=== PATIENT | male | born 1930 | race Caucasian/White ===

== ENCOUNTER 2017-01-22 09:05 | Emergency (ER) | payer OTHER ==
[2017-01-22] MEDS ORDERED: SODIUM CHLORIDE 1,000 ML IV STA (09:38)
--- NOTE | 2017-01-22 09:47 | PDOC ---
History of Present Illness - History of Present Illness Initial Comments: 01/22/17 10:04 The patient is a 86 year old male, with a significant past medical history of alzheimer's, AFib (on Pradaxa), who presents to the emergency department with home health aide for six days of abdominal pain with onset of diarrhea last night. The patient denies any complaints at this time, however, the home health aide at bedside reports the patient has been complaining of diffuse abdominal pain at home. The home health aide reports 3 episodes of loose stool, with blood visualized in the last bowel movement. He denies chest pain, shortness of breath, headache and dizziness. He denies fever, chills, nausea, vomit, diarrhea and constipation. He denies dysuria, frequency, urgency and hematuria. Allergies: NKDA PCP - Dr. Galeana <Leti Garcia - Last Filed: 01/22/17 13:41> <Leeann Osorio - Last Filed: 01/22/17 16:10> - General Chief Complaint: Pain, Acute Stated Complaint: PAIN Time Seen by Provider: 01/22/17 09:20 Past History <Leti Garcia - Last Filed: 01/22/17 13:41> - Past Medical History Cardiac Disorders: Yes (v tach, angina, irregular rhythm) Dementia: Yes (possible) GI Disorders: Yes (constipation) HTN: Yes Hypercholesterolemia: Yes - Surgical History Cardiac Surgery: Yes (bypass( Double), pacemaker/icd) - Immunization History Immunization Up to Date: Yes - Psycho/Social/Smoking Cessation Hx Anxiety: No Suicidal Ideation: No Smoking History: Former smoker Have you smoked in the past 12 months: No Number of Cigarettes Smoked Daily: 10 If you are a former smoker, when did you quit?: 40 years ago Information on smoking cessation initiated: No Hx Alcohol Use: No Drug/Substance Use Hx: No Substance Use Type: None Hx Substance Use Treatment: No <Leeann Osorio - Last Filed: 01/22/17 16:10> - Past Medical History Allergies/Adverse Reactions: Allergies Allergy/AdvReac Type Severity Reaction Status Date / Time No Known Allergies Allergy Verified 01/22/17 09:07 Home Medications: Ambulatory Orders Folic Acid - 1 mg PO DAILY 12/01/13 Ramipril [Altace] 10 mg PO DAILY 12/01/13 Simvastatin [Zocor -] 40 mg PO HS 12/01/13 Sotalol HCl [Sotalol] 40 mg PO BID 12/01/13 Cholecalciferol (Vitamin D3) [Vitamin D3] 1,000 unit PO DAILY 02/12/14 Colchicine [Colcrys] 0.5 mg PO DAILY 06/10/16 Sennosides/Docusate Sodium [Senna Plus Tablet] 1 each PO ASDIR PRN 06/10/16 Polyethylene Glycol 3350 [Miralax 255 gm Btl -] 17 gm PO BID #1 bottle 06/16/16 Dabigatran Etexilate Mesylate [Pradaxa -] 150 mg PO BID 06/25/16 Donepezil HCl 5 mg PO DAILY 12/26/16 Finasteride 5 mg PO DAILY 12/26/16 Olanzapine 2.5 mg PO HS 12/26/16 Docusate Sodium [Colace -] 100 mg PO DAILY #30 capsule 01/22/17 Review of Systems - Review of Systems Able to Perform ROS?: No (Hx from [facility]) <Leti Garcia - Last Filed: 01/22/17 13:41> *Physical Exam - Physical Exam Comments: 01/22/17 10:05 GENERAL: Awake, alert, and fully oriented, in no acute distress HEAD: No signs of trauma EYES: PERRLA, EOMI, sclera anicteric, conjunctiva clear ENT: Auricles normal inspection, hearing grossly normal, nares patent, oropharynx clear without exudates. Moist mucosa NECK: Normal ROM, supple, no lymphadenopathy, JVD, or masses LUNGS: Breath sounds equal, clear to auscultation bilaterally. No wheezes, and no crackles HEART: Regular rate and rhythm, normal S1 and S2, no murmurs, rubs or gallops ABDOMEN: Soft, nontender, normoactive bowel sounds. No guarding, no rebound. No masses EXTREMITIES: Normal range of motion, no edema. No clubbing or cyanosis. No cords, erythema, or tenderness NEUROLOGICAL: Cranial nerves II through XII grossly intact. Normal speech, normal gait SKIN: Warm, Dry, normal turgor, no rashes or lesions noted. <Leti Garcia - Last Filed: 01/22/17 13:41> ED Treatment Course - LABORATORY CBC & Chemistry Diagram: 01/22/17 10:30 01/22/17 10:30 - RADIOLOGY Radiograph Interpretation: EXAM#: TYPE/EXAM: RESULT: [id number] RAD/CHEST X-RAY PORTABLE* Chest: Abdominal pain Since 06/17/2016, again is the prominent mediastinum with large heart, unfolded aorta, sternal sutures and clips, pacemaker and some coarse central changes. There is slight tracheal deviation to the right from a prominent knob. Impression: No acute pathology. No significant change since prior study. Reported By: Cesar Lyons MD 01/22/17 1113 <Leti Garcia - Last Filed: 01/22/17 13:41> - LABORATORY CBC & Chemistry Diagram: 01/22/17 10:30 01/22/17 10:30 - RADIOLOGY Radiology Studies Ordered: Category Date Time Status CHEST X-RAY PORTABLE* [RAD] Stat Radiology 01/22/17 09:37 Ordered <Leeann Osorio - Last Filed: 01/22/17 16:10> Medical Decision Making - Medical Decision Making 01/22/17 13:41 Dr. Galeana was paged via phone answering service at this time requesting a call back for doctor to doctor consult. <Leti Garcia - Last Filed: 01/22/17 13:41> - Medical Decision Making 01/22/17 10:20 86-year-old male with history of Alzheimer's disease, hypertension, hyperlipidemia, atrial fibrillation on anticoagulation presents to the emergency department with his health aide who states that the patient has been complaining of abdominal pain and had 3 episodes of diarrhea today. Differential diagnosis includes but is not limited to: Gastroenteritis, colitis , enteritis, diverticulitis, electrolyte abnormality, toxic/metabolic derangement, dehydration. Plan: 1. Labs 2. EKG 3. IV fluids for hydration 4. Observe and reevaluate 01/22/17 14:28 Addendum: Labs were reviewed and are noted in the EMR. The CT scan shows dilated sigmoid colon with diffuse fecal retention. These findings were discussed with the patient's PCP, Dr. Weber. The plan is to give fleets enemas and induce BM in the ED then discharge home with stool softeners. Fleets enema has been ordered. <Leeann Osorio - Last Filed: 01/22/17 16:10> *DC/Admit/Observation/Transfer - Attestations Scribe Attestion: 01/22/17 10:06 Documentation prepared by Leti Garcia, acting as medical psychotherapist for Leeann Osorio MD <Leti Garcia - Last Filed: 01/22/17 13:41> - Discharge Dispostion Admit: No - Attestations Physician Attestion: 01/22/17 10:20 I, Dr. Leeann Osorio, attest that the scribes documentation that appears above has been prepared under my direction and personally reviewed by me in its entirety. I confirmed that the note above accurately reflects all work, treatment, procedures, and medical decision-making performed by me. <Leeann Osorio - Last Filed: 01/22/17 16:10> Diagnosis at time of Disposition: Abdominal pain, Fecal impaction - Discharge Dispostion Disposition: HOME Condition at time of disposition: Stable - Prescriptions Prescriptions: Docusate Sodium [Colace -] 100 mg PO DAILY #30 capsule - Referrals Referrals: Guero Galeana MD [Primary Care Provider] - - Patient Instructions Printed Discharge Instructions: DI for Constipation Additional Instructions: Take colace 100mg--one tablet daily. Follow-up with primary care physician. Return to the ED if symptoms persist, worsen or new symptoms arise.
[2017-01-22 10:10] VITALS: BMI 25.7
[2017-01-22 10:43] LABS: BASOPHIL 1.1 % (0-2.0); EOSINOPHIL 1.6 % (0-4.5); MCHC 33.9 g/dl (32.0-35.9); MEAN CELL VOLUME 91.4 fl (80-96); MEAN PLT VOLUME 7.3 fl (7.5-11.1); NEUTROPHILS 70.2 % (42.8-82.8); PLATELET COUNT 176 K/MM3 (134-434); RDW 13.9 % (11.9-15.9); WHITE BLOOD COUNT 5.3 K/mm3 (4.0-10.0)
[2017-01-22 11:02] LABS: ALBUMIN 3.4 g/dl (3.4-5.0); ANION GAP 8 (8-16); BILIRUBIN,TOTAL 0.7 mg/dL (0.2-1.0); CALCIUM 9.2 mg/dL (8.5-10.1); CO2 33 mmol/L (21-32); GLUCOSE,RANDOM 100 mg/dL (74-106); SGOT/AST 22 U/L (15-37); SGPT/ALT 21 U/L (12-78); TOT PROT 6.7 g/dl (6.4-8.2)
[2017-01-22 11:05] LABS: ALK PHOS 81 U/L (45-117); TROPONIN I < 0.02 ng/ml (0.00-0.05)
--- NOTE | 2017-01-22 11:48 | EKG ---
Test Reason : Blood Pressure : / mmHG Vent. Rate : 073 BPM Atrial Rate : 073 BPM P-R Int : 260 ms QRS Dur : 112 ms QT Int : 398 ms P-R-T Axes : 007 -15 -30 degrees QTc Int : 438 ms SINUS RHYTHM WITH 1ST DEGREE A-V BLOCK WITH FREQUENT PREMATURE VENTRICULAR COMPLEXES NONSPECIFIC T WAVE ABNORMALITY ABNORMAL ECG WHEN COMPARED WITH ECG OF 26-DEC-2016 07:12, NO SIGNIFICANT CHANGE WAS FOUND Confirmed by CT GONCALVES, CORINA ([id number]) on 01/22/2017 11:48:40 AM Referred By: Confirmed By:CORINA FOFANA MD
[2017-01-22 12:04] LABS: URINE APPEARANCE CLEAR; URINE BILIRUBIN NEGATIVE (NEGATIVE); URINE BLOOD 3+ (NEGATIVE); URINE COLOR YELLOW; URINE GLUCOSE (UA) NEGATIVE (NEGATIVE); URINE KETONE NEGATIVE (NEGATIVE); URINE LEUK ESTERASE NEGATIVE (NEGATIVE); URINE NITRITE NEGATIVE (NEGATIVE); URINE PROTEIN NEGATIVE (NEGATIVE); URINE UROBILINOGEN NEGATIVE mg/dL (0.2-1.0)
[2017-01-22 12:09] LABS: URINE MUCUS RARE; URINE RBC 310 /hpf (0-3); URINE WBC 2 /hpf (3-5)
[2017-01-22] MEDS ORDERED: MAGNESIUM CITRATE 300 ML BOTTLE PO ONE (15:31)
[2017-01-22] MEDS ORDERED: MAGNESIUM CITRATE 300 ML BOTTLE ONE (15:53)
[2017-01-22 18:55] VITALS: BP 135/77; PULSE 77; TEMP 98.1
== END 2017-01-22 18:55 | disposition home or self-care (01) ==
LOC: JER 09:05
PROC: 3E0337Z Introduction of Electrolytic and Water Balance Substance into Peripheral Vein, Percutaneous Approach (ICD-10-PCS; principal; 2017-01-22)
DX: R10.84 Generalized abdominal pain (principal); K56.41 Fecal impaction; I25.810 Atherosclerosis of coronary artery bypass graft(s) without angina pectoris; I10 Essential (primary) hypertension; Z95.1 Presence of aortocoronary bypass graft; Z95.810 Presence of automatic (implantable) cardiac defibrillator; I48.91 Unspecified atrial fibrillation; Z79.01 Long term (current) use of anticoagulants; E78.00 Pure hypercholesterolemia, unspecified
CPT/HCPCS: 36415; 71010-TC; 74176-TC; 80053; 81003; 81015; 82272; 82550; 83605; 83690; 84484; 85025; 93005; 93010; 99285-25

== ENCOUNTER 2017-01-24 06:32 | Emergency (ER) | payer OTHER ==
[2017-01-24 06:48] VITALS: BMI 20.3
[2017-01-24] MEDS ORDERED: SODIUM CHLORIDE 500 ML IV STA (07:45)
--- NOTE | 2017-01-24 07:52 | PDOC ---
History of Present Illness - General Chief Complaint: Rectal Bleed Stated Complaint: BLOOD IN STOOL Time Seen by Provider: 01/24/17 07:18 History Source: Patient, Family - History of Present Illness Timing/Duration: reports: constant Past History - Past Medical History Allergies/Adverse Reactions: Allergies Allergy/AdvReac Type Severity Reaction Status Date / Time No Known Allergies Allergy Verified 01/24/17 07:02 Home Medications: Ambulatory Orders Folic Acid - 1 mg PO DAILY 12/01/13 Ramipril [Altace] 10 mg PO DAILY 12/01/13 Simvastatin [Zocor -] 40 mg PO HS 12/01/13 Sotalol HCl [Sotalol] 40 mg PO BID 12/01/13 Cholecalciferol (Vitamin D3) [Vitamin D3] 1,000 unit PO DAILY 02/12/14 Colchicine [Colcrys] 0.5 mg PO DAILY 06/10/16 Sennosides/Docusate Sodium [Senna Plus Tablet] 1 each PO ASDIR PRN 06/10/16 Polyethylene Glycol 3350 [Miralax 255 gm Btl -] 17 gm PO BID #1 bottle 06/16/16 Dabigatran Etexilate Mesylate [Pradaxa -] 150 mg PO BID 06/25/16 Donepezil HCl 5 mg PO DAILY 12/26/16 Finasteride 5 mg PO DAILY 12/26/16 Olanzapine 2.5 mg PO HS 12/26/16 Docusate Sodium [Colace -] 100 mg PO DAILY #30 capsule 01/22/17 Cardiac Disorders: Yes (v tach, angina, irregular rhythm) Dementia: Yes (possible) GI Disorders: Yes (constipation) HTN: Yes Hypercholesterolemia: Yes - Surgical History Cardiac Surgery: Yes (bypass(Double), pacemaker/icd) - Immunization History Immunization Up to Date: Yes - Psycho/Social/Smoking Cessation Hx Anxiety: No Suicidal Ideation: No Smoking History: Former smoker Have you smoked in the past 12 months: No Number of Cigarettes Smoked Daily: 10 If you are a former smoker, when did you quit?: 40 yrs Information on smoking cessation initiated: No Hx Alcohol Use: No Drug/Substance Use Hx: No Substance Use Type: None Hx Substance Use Treatment: No Review of Systems - Review of Systems Constitutional: No: Chills, Fever, Malaise, Weakness ABD/GI: Yes: Blood Streaked Bowels. No: Constipated, Diarrhea, Nausea, Vomiting *Physical Exam - Vital Signs Last Vital Signs Temp Pulse Resp BP Pulse Ox 97.9 F 77 20 110/55 96 01/24/17 06:45 01/24/17 06:45 01/24/17 06:45 01/24/17 06:45 01/24/17 06:45 - Physical Exam General Appearance: Yes: Appropriately Dressed. No: Apparent Distress HEENT: positive: Normal Voice Neck: positive: Supple Respiratory/Chest: negative: Respiratory Distress Gastrointestinal/Abdominal: positive: Soft. negative: Tender, Hernia, Mass Extremity: positive: Normal Inspection Integumentary: positive: Dry, Warm Neurologic: positive: Alert, Normal Mood/Affect ED Treatment Course - LABORATORY CBC & Chemistry Diagram: 01/24/17 08:00 01/24/17 08:00 Medical Decision Making - Medical Decision Making 01/24/17 07:52 86-year-old male with history of Alzheimer's disease, hypertension, hyperlipidemia, A.fib on pradaxa brought in by daughter with complaint that patient has been moving his bowels at home every 15 minutes. Of note, patient was seen in the ED 2 days ago for abdominal pain with diarrhea w/ some blood in the stool. Was found to be guaiac positive with stool retention on CT. Labs were unremarkable. Patient was given a fleet enema and discharged with dulcolax which pt has not yet taken. Daughter states patient has been moving his bowels approximately every 15 minutes, c/w watery stools and has noted minimal amounts of bright red blood in stool. Patient denies any abd pain, nausea, vomiting, fever and states he feels well at this time. Daughter admits that she wants ED to admit patient because family was up all night tending to patient and that she feels overwhelmed. Patient well-appearing and stable with benign abdomen. I explained to daughter that it is normal for patient to have several BM movements after given an enema and that, that will taper off. I informed her that I will check blood work today, but that if there is no medical reason for us to admit patient we would be unable to at this time. Daughter informed that if family feels overwhelmed at home, that she should contact patient's PMD and discuss options such as prison placement 01/24/17 07:58 01/24/17 08:57 Labs unremarkable. Pt had several non-bloody BMs while in ED. Pt's daughter now admits that home care agency is increasing hrs for pt. Stable for discharge at this time to f/u with PMD 01/24/17 09:03 01/24/17 09:13 *DC/Admit/Observation/Transfer Diagnosis at time of Disposition: Diarrhea Qualifiers: Diarrhea type: unspecified type Qualified Code(s): R19.7 - Diarrhea, unspecified - Discharge Dispostion Disposition: HOME Condition at time of disposition: Good - Referrals Referrals: Guero Galeana MD [Primary Care Provider] - - Patient Instructions Additional Instructions: Your frequent bowel movements are most likely a result of enema you were given in ED. After frequency and diarrhea has resolved, resume usual bowel regimen and follow-up with your PMD
[2017-01-24 08:10] LABS: BASOPHIL 0.6 % (0-2.0); EOSINOPHIL 1.4 % (0-4.5); MCH 30.4 pg (25.7-33.7); MCHC 33.2 g/dl (32.0-35.9); MEAN CELL VOLUME 91.7 fl (80-96); MEAN PLT VOLUME 7.7 fl (7.5-11.1); NEUTROPHILS 68.6 % (42.8-82.8); PLATELET COUNT 190 K/MM3 (134-434); RDW 13.4 % (11.9-15.9); WHITE BLOOD COUNT 6.2 K/mm3 (4.0-10.0)
[2017-01-24 08:44] LABS: ALBUMIN 3.2 g/dl (3.4-5.0); ALK PHOS 83 U/L (45-117); ANION GAP 5 (8-16); BILIRUBIN,TOTAL 0.6 mg/dL (0.2-1.0); CALCIUM 9.2 mg/dL (8.5-10.1); CO2 33 mmol/L (21-32); CREATININE 1.2 mg/dL (0.7-1.3); GLUCOSE,RANDOM 100 mg/dL (74-106); SGOT/AST 27 U/L (15-37); SGPT/ALT 21 U/L (12-78); TOT PROT 6.5 g/dl (6.4-8.2)
--- NOTE | 2017-01-24 09:05 | PDOC ---
*Physical Exam - Vital Signs Last Vital Signs Temp Pulse Resp BP Pulse Ox 97.9 F 80 18 112/60 98 01/24/17 06:45 01/24/17 07:50 01/24/17 07:50 01/24/17 07:50 01/24/17 07:50 ED Treatment Course - LABORATORY CBC & Chemistry Diagram: 01/24/17 08:00 01/24/17 08:00 - ADDITIONAL ORDERS Additional order review: Laboratory Results 01/24/17 08:00 Sodium 137 Potassium 4.3 Chloride 99 Carbon Dioxide 33 H Anion Gap 5 L BUN 31 H Creatinine 1.2 Creat Clearance w eGFR 57.54 Random Glucose 100 Calcium 9.2 Total Bilirubin 0.6 AST 27 D ALT 21 Alkaline Phosphatase 83 Total Protein 6.5 Albumin 3.2 L 01/24/17 08:00 RBC 3.88 L MCV 91.7 MCHC 33.2 RDW 13.4 MPV 7.7 Neutrophils % 68.6 Lymphocytes % 13.5 Monocytes % 15.9 H Eosinophils % 1.4 Basophils % 0.6 - Medications Given in the ED: ED Medications Discontinued Medications Generic Name Dose Route Start Last Admin Trade Name Freq PRN Reason Stop Dose Admin Sodium Chloride 500 mls @ 1,000 mls/hr 01/24/17 07:45 01/24/17 08:30 Normal Saline - IV 01/24/17 08:14 1,000 mls/hr ASDIR STA Administration Medical Decision Making - Medical Decision Making 01/24/17 09:05 Pt seen by the Advanced Practice Provider under my direct supervision Ancillary studies reviewed I agree with plan as outlined by the Advanced Practice Provider ELO Navarrete *DC/Admit/Observation/Transfer Diagnosis at time of Disposition: Diarrhea Qualifiers: Diarrhea type: unspecified type Qualified Code(s): R19.7 - Diarrhea, unspecified - Discharge Dispostion Disposition: HOME Condition at time of disposition: Good - Referrals Referrals: Guero Galeana MD [Primary Care Provider] - - Patient Instructions Additional Instructions: Your frequent bowel movements are most likely a result of enema you were given in ED. After frequency and diarrhea has resolved, resume usual bowel regimen and follow-up with your PMD - Post Discharge Activity
[2017-01-24 12:03] VITALS: BP 114/63; PULSE 69; TEMP 97.7
== END 2017-01-24 12:14 | disposition home or self-care (01) ==
LOC: JER 06:32
PROC: 3E0337Z Introduction of Electrolytic and Water Balance Substance into Peripheral Vein, Percutaneous Approach (ICD-10-PCS; principal; 2017-01-24)
DX: R19.7 Diarrhea, unspecified (principal); I25.118 Atherosclerotic heart disease of native coronary artery with other forms of angina pectoris; I10 Essential (primary) hypertension; Z95.1 Presence of aortocoronary bypass graft; E78.00 Pure hypercholesterolemia, unspecified; G30.9 Alzheimer's disease, unspecified; F02.80 Dementia in other diseases classified elsewhere, unspecified severity, without behavioral disturbance, psychotic disturbance, mood disturbance, and anxiety; Z95.810 Presence of automatic (implantable) cardiac defibrillator
CPT/HCPCS: 36415; 80053; 85025; 96360; 99284-25

== ENCOUNTER 2017-06-16 21:20 | Inpatient (IN) | payer OTHER ==
[2017-06-16 22:43] VITALS: BMI 22.3
--- NOTE | 2017-06-16 22:45 | PDOC ---
History of Present Illness - General History Source: Patient <Bhupinder Brooks - Last Filed: 06/17/17 00:00> - History of Present Illness Initial Comments: 06/16/17 22:58 The patient is an 86 year old male, with a significant past medical history of hypertension, hyperlipidemia, hypokalemia, CAD, alzheimer's, AFib (on Pradaxa), and CHF who presents to the emergency department with daughter for increased confusion this evening. As per the patients daughter, in the last several days, the patient has become increasingly weak with progressively decreasing appetite. The daughter states her father was unable to walk secondary to weakness today The daughter states there was no syncope that was observed or reported by others. No reported chest pain, shortness of breath, headache or dizziness. No reported fever, chills, nausea, vomit, diarrhea, abdominal pain or constipation. No reported dysuria, frequency, urgency and hematuria. Allergies: NKDA PCP: Dr. Galeana Case Advocate: Dr. Jones <Leti Garcia - Last Filed: 06/17/17 03:13> - General Chief Complaint: Altered Mental Status Stated Complaint: SICK Time Seen by Provider: 06/16/17 22:45 Past History - Past Medical History Cardiac Disorders: Yes (v tach, angina, irregular rhythm) Dementia: Yes (possible) GI Disorders: Yes (constipation) HTN: Yes Hypercholesterolemia: Yes - Surgical History Cardiac Surgery: Yes (bypass(Double), pacemaker/icd) - Immunization History Immunization Up to Date: Yes - Suicide/Smoking/Psychosocial Hx Smoking History: Never smoked Have you smoked in the past 12 months: No Number of Cigarettes Smoked Daily: 10 If you are a former smoker, when did you quit?: 40 yrs Information on smoking cessation initiated: No Hx Alcohol Use: No Drug/Substance Use Hx: No Substance Use Type: None Hx Substance Use Treatment: No <Bhupinder Brooks - Last Filed: 06/17/17 00:00> <Leti Garcia - Last Filed: 06/17/17 03:13> - Past Medical History Allergies/Adverse Reactions: Allergies Allergy/AdvReac Type Severity Reaction Status Date / Time No Known Allergies Allergy Verified 06/16/17 22:40 Home Medications: Ambulatory Orders Folic Acid - 1 mg PO DAILY 12/01/13 Ramipril [Altace] 10 mg PO DAILY 12/01/13 Simvastatin [Zocor -] 40 mg PO HS 12/01/13 Sotalol HCl [Sotalol] 40 mg PO BID 12/01/13 Cholecalciferol (Vitamin D3) [Vitamin D3] 1,000 unit PO DAILY 02/12/14 Colchicine [Colcrys] 0.5 mg PO DAILY 06/10/16 Sennosides/Docusate Sodium [Senna Plus Tablet] 1 each PO ASDIR PRN 06/10/16 Polyethylene Glycol 3350 [Miralax 255 gm Btl -] 17 gm PO BID #1 bottle 06/16/16 Dabigatran Etexilate Mesylate [Pradaxa -] 150 mg PO BID 06/25/16 Donepezil HCl 5 mg PO DAILY 12/26/16 Finasteride 5 mg PO DAILY 12/26/16 Olanzapine 2.5 mg PO HS 12/26/16 Docusate Sodium [Colace -] 100 mg PO DAILY #30 capsule 01/22/17 Review of Systems - Review of Systems Able to Perform ROS?: No (AMS) Is the patient limited Wallisian proficient: No Constitutional: Yes: Symptoms Reported, See HPI (as per Pt's daughter) <Leti Garcia - Last Filed: 06/17/17 03:13> *Physical Exam - Vital Signs Last Vital Signs Temp Pulse Resp BP Pulse Ox 79 14 103/62 91 L 06/16/17 22:40 06/16/17 22:40 06/16/17 22:40 06/16/17 22:40 <Bhupinder Brooks - Last Filed: 06/17/17 00:00> - Vital Signs Last Vital Signs Temp Pulse Resp BP Pulse Ox 79 14 103/62 91 L 06/16/17 22:40 06/16/17 22:40 06/16/17 22:40 06/16/17 22:40 - Physical Exam Comments: 06/16/17 22:59 GENERAL: (+) Confused. Patient is not answering questions appropriately, however, does not complain of anything in particular. Awake. HEENT: Normocephalic, atraumatic. PERRLA, EOMI. No conjunctival pallor. Sclera are non- icteric. Moist mucous membranes. Oropharynx is clear. NECK: Supple. Full ROM. No JVD. Carotid pulses 2+ and symmetric, without bruits. No thyromegaly. No lymphadenopathy. CARDIOVASCULAR: Regular rate and rhythm. No murmurs, rubs, or gallops. Distal pulses are 2+ and symmetric. PULMONARY: No evidence of respiratory distress. Lungs clear to auscultation bilaterally. No wheezing, rales or rhonchi. ABDOMINAL: Soft. Non-tender. Non-distended. No rebound or guarding. No organomegaly. Normoactive bowel sounds. MUSCULOSKELETAL Normal range of motion at all joints. No bony deformities or tenderness. No CVA tenderness. EXTREMITIES: No cyanosis. No clubbing. No edema. No calf tenderness. SKIN: Warm and dry. Normal capillary refill. No rashes. No jaundice. NEUROLOGICAL: Alert, awake, appropriate. Cranial nerves 2-12 intact. Normoreflexic in the upper and lower extremities. Moving all extremities equally and appropriately. Normal speech. Toes are down-going bilaterally. <Leti Garcia - Last Filed: 06/17/17 03:13> Heart Score/ECG Review - ECG Intrepretation Comment:: 06/17/17 03:05 EKG was read by Dr. Brooks at 02:57 Impression: Sinus rhythm with frequent and consecutive premature ventricular complexes and fusion complexes. ST & T wave abnormality. Prolonged QT <Leti Garcia - Last Filed: 06/17/17 03:13> ED Treatment Course - LABORATORY CBC & Chemistry Diagram: 06/16/17 23:38 06/16/17 23:38 <Bhupinder Brooks - Last Filed: 06/17/17 00:00> - LABORATORY CBC & Chemistry Diagram: 06/16/17 23:38 06/16/17 23:38 - RADIOLOGY Radiograph Interpretation: EXAM: CT HEAD without contrast HISTORY: Altered mental status COMPARISON: None. TECHNIQUE: CT Head with serial axial images extending from the vertex to the base of skull was performed without vascular contrast. FINDINGS: Brain parenchyma is normal in attenuation with no mass or hematoma. There is no midline shift. Garcia and white matter differentiation is normal. There is some lucency in the periventricular white matter Ventricles are mildly prominent. Sulci and extra-axial CSF spaces are mildly prominent. Intracranial vascular structures are normal in attenuation. There is no calvarial fracture. Paranasal sinuses are normally aerated. IMPRESSION: No intracranial mass or bleed Chronic appearing involutional changes of aging Orlando Wan MD 06/17/2017 01:58 EST <Leti Garcia - Last Filed: 06/17/17 03:13> Medical Decision Making - Medical Decision Making 06/17/17 00:00 Dr. Brooks: The scribe's documentation has been prepared under my direction and personally reviewed by me in its entirery. I confirm that the note above accurately reflects all work, treatment, procedures, and medical decision making performed by me. Spoke to Dr. Galeana. Pt to be admitted to [facility]. <Bhupinder Brooks - Last Filed: 06/17/17 00:00> - Medical Decision Making 06/16/17 23:53 Dr. Galenaa was called via phone answering service at this time and the patient's case was discussed. <Leti Garcia - Last Filed: 06/17/17 03:13> *DC/Admit/Observation/Transfer - Discharge Dispostion Admit: Yes <Bhupinder Brooks - Last Filed: 06/17/17 00:00> - Attestations Scribe Attestion: 06/16/17 23:02 Documentation prepared by Leti Garcia, acting as special forces medical sergeant for Bhupinder Brooks DO <Leti Garcia - Last Filed: 06/17/17 03:13> Diagnosis at time of Disposition: Altered mental status, Failure to thrive in adult, Bilateral lower extremity edema - Discharge Dispostion Condition at time of disposition: Stable
[2017-06-16 23:44] LABS: BASO % 0.2 % (0-2.0); HEMATOCRIT 36.2 % (35.4-49); HEMOGLOBIN 11.8 GM/dL (11.7-16.9); LYMPH % 2.8 % (8-40); MCH 29.1 pg (25.7-33.7); MCHC 32.7 g/dl (32.0-35.9); MEAN CELL VOLUME 89.1 fl (80-96); MEAN PLT VOLUME 8.1 fl (7.5-11.1); MONO % 7.8 % (3.8-10.2); NEUT % 89.2 % (42.8-82.8); PLATELET COUNT 186 K/MM3 (134-434); RBC 4.06 M/mm3 (4.00-5.60); RDW 15.7 % (11.9-15.9); WHITE BLOOD COUNT 7.6 K/mm3 (4.0-10.0)
[2017-06-16 23:56] LABS: INR 1.71 (0.82-1.09); PROTHROMBIN TIME (PATIENT) 19.3 SEC (9.98-11.88)
[2017-06-17 00:11] LABS: ANION GAP 12 (8-16); BILIRUBIN,TOTAL 0.7 mg/dL (0.2-1.0); BLOOD UREA NITROGEN 26 mg/dL (7-18); CALCIUM 8.5 mg/dL (8.5-10.1); CHLORIDE 101 mmol/L (98-107); CO2 29 mmol/L (21-32); CREATININE 1.3 mg/dL (0.7-1.3); GLUCOSE,RANDOM 127 mg/dL (74-106); POTASSIUM 3.4 mmol/L (3.5-5.1); SGOT/AST 34 U/L (15-37); SGPT/ALT 34 U/L (12-78); SODIUM 142 mmol/L (136-145); TOT PROT 6.3 g/dl (6.4-8.2)
[2017-06-17 00:14] LABS: ALK PHOS 98 U/L (45-117)
[2017-06-17] MEDS ORDERED: SENNOSIDES/DOCUSATE COMBO (SENNA PLUS) TABLET (UD) PO PRN ×2 (00:24→19:18)
[2017-06-17] MEDS ORDERED: POTASSIUM CHLORIDE TABS 20 MEQ TABLET.ER (FP) PO ONE (00:27)
[2017-06-17] MEDS ORDERED: LORazepam 2 MG/ML SDV VIAL ONE (01:11)
[2017-06-17] MEDS ORDERED: POTASSIUM CHLORIDE ORAL LIQUID 20 MEQ/15 ML ONE (01:14)
[2017-06-17] MEDS ORDERED: ACETAMINOPHEN 1000 MG/100 ML VIAL (NON FORMULARY) IVPB ONE ×3 (01:46→21:00)
[2017-06-17] MEDS ORDERED: ACETAMINOPHEN INJECTION 100 ML IVPB ONE (01:49)
[2017-06-17] MEDS ORDERED: CEFTRIAXONE 1 GM/50 ML BAG ONE (01:50)
[2017-06-17] MEDS ORDERED: NITROGLYCERIN SUBLINGUAL 1/150 0.4 MG TAB ONE (02:20)
[2017-06-17 02:32] LABS: URINE APPEARANCE CLOUDY; URINE BILIRUBIN NEGATIVE (NEGATIVE); URINE BLOOD 2+ (NEGATIVE); URINE COLOR DKYELLOW; URINE GLUCOSE (UA) NEGATIVE (NEGATIVE); URINE KETONE NEGATIVE (NEGATIVE); URINE NITRITE NEGATIVE (NEGATIVE); URINE UROBILINOGEN NEGATIVE mg/dL (0.2-1.0)
[2017-06-17 02:34] LABS: URINE LEUK ESTERASE 3+ (NEGATIVE); URINE PROTEIN 2+ (NEGATIVE)
[2017-06-17 02:35] LABS: URINE BACTERIA MODERATE /hpf (NONE SEEN); URINE MUCUS RARE
[2017-06-17] MEDS ORDERED: SODIUM CHLORIDE 1,000 ML IV SCH ×4 (04:45→21:01)
[2017-06-17] MEDS ORDERED: CEFTRIAXONE 1 G/50 ML PREMIX 50 ML IVPB SCH (04:45)
[2017-06-17] MEDS ORDERED: SODIUM CHLORIDE 0.9% 500 ML INFUS.BAG IV ONE (04:58)
[2017-06-17] MEDS ORDERED: VANCOMYCIN 1,000 MG in DEXTROSE 5%-WATER - 250 ML IVPB ONE (05:00)
--- NOTE | 2017-06-17 09:33 | CON.CARD ---
Consult Consult Specialty:: Cardiology Referred by:: Dr. 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 As per the patients daughter, in the last several days, the patient has become increasingly weak with progressively decreasing appetite. The daughter states her father was unable to walk secondary to weakness today The daughter states there was no syncope that was observed or reported by others. He was found to be febrile, cultures were sent. He cannot provide history is currently nonverbal, this is my first encounter with him. - History Source History Provided By: Medical Record - Past Medical History COPYWRITING INTERN: Yes: Dementia Cardio/Vascular: Yes: AFIB (Paroxysm on Holter), CAD, CHF, HTN, Hyperlipdemia, Murmur Gastrointestinal: No: Cancer Hepatobiliary: Yes: Cholelithiasis Renal/: Yes: BPH, Other (Bladder mass) Musculoskeletal: Yes: Osteoarthritis Rheumatology: Yes: Other (Pseudogout-on Colchicine) - Past Surgical History Past Surgical History: Yes: AICD, CABG - Alcohol/Substance Use Hx Alcohol Use: No - Smoking History Smoking history: Never smoked Have you smoked in the past 12 months: No Aproximately how many cigarettes per day: 10 If you are a former smoker, when did you quit?: 40 yrs - Social History ADL: Independent History of Recent Travel: No Home Medications - Allergies Allergies/Adverse Reactions: Allergies Allergy/AdvReac Type Severity Reaction Status Date / Time No Known Allergies Allergy Verified 06/16/17 22:40 - Home Medications Home Medications: Ambulatory Orders Folic Acid - 1 mg PO DAILY 12/01/13 Ramipril [Altace] 10 mg PO DAILY 12/01/13 Simvastatin [Zocor -] 40 mg PO HS 12/01/13 Sotalol HCl [Sotalol] 40 mg PO BID 12/01/13 Cholecalciferol (Vitamin D3) [Vitamin D3] 1,000 unit PO DAILY 02/12/14 Colchicine [Colcrys] 0.5 mg PO DAILY 06/10/16 Sennosides/Docusate Sodium [Senna Plus Tablet] 1 each PO ASDIR PRN 06/10/16 Polyethylene Glycol 3350 [Miralax 255 gm Btl -] 17 gm PO BID #1 bottle 06/16/16 Dabigatran Etexilate Mesylate [Pradaxa -] 150 mg PO BID 06/25/16 Donepezil HCl 5 mg PO DAILY 12/26/16 Finasteride 5 mg PO DAILY 12/26/16 Olanzapine 2.5 mg PO HS 12/26/16 Docusate Sodium [Colace -] 100 mg PO DAILY #30 capsule 01/22/17 Family Disease History - Family Disease History Family History: Unremarkable (not pertinent to this presentation) Review of Systems Findings/Remarks: see HPI - Risk Factors Known Risk Factors: Yes: Other (known CAD) Vital Signs: Vital Signs Temperature 99.0 F 06/17/17 03:35 Pulse Rate 72 06/17/17 03:35 Respiratory Rate 30 H 06/17/17 03:35 Blood Pressure 105/62 06/17/17 03:35 O2 Sat by Pulse Oximetry (%) 94 L 06/17/17 03:35 Constitutional: Yes: No Distress Respiratory: Yes: Rhonchi (no wheezing), Other Gastrointestinal: Yes: Soft Cardiovascular: Yes: Pulse Irregular JVD: No Carotid Bruit: No Heart Sounds: Yes: S1, S2 (irregular) Edema: No Neurological: Yes: Other (nonverbal) - Other Data Labs, Other Data: CBC, BMP 06/16/17 23:38 06/16/17 23:38 INR, PTT INR 1.71 (0.82-1.09) H D 06/16/17 23:38 Troponin, BNP 06/16/17 06/16/17 23:31 23:38 Troponin I 0.02 B-Natriuretic Peptide 6754.79 H Troponin, BNP 06/16/17 06/16/17 23:31 23:38 Troponin I 0.02 B-Natriuretic Peptide 6754.79 H Microbiology Laboratory Tests 06/16/17 06/16/17 06/16/17 23:31 23:38 23:38 WBC 7.6 Hgb 11.8 Plt Count 186 INR Sodium 142 Potassium 3.4 L D BUN 26 H Creatinine 1.3 Magnesium Creatine Kinase 121 Troponin I 0.02 B-Natriuretic Peptide 6754.79 H 06/16/17 06/16/17 23:38 23:38 WBC Hgb Plt Count INR 1.71 H D Sodium Potassium BUN Creatinine Magnesium 1.7 L Creatine Kinase Troponin I B-Natriuretic Peptide Uninterpretable, artifactual baseline. Prior Cardiac Procedures: CABG Imaging - Results Chest X-ray: Image Reviewed Cat Scan: Report Reviewed (Head CT negative Chest CT mild congestion) EKG: Image Reviewed Problem List - Problems (1) Failure to thrive in adult Assessment/Plan: -fever: UTI? vs cellulitis? vs infiltrate -follow cultures, abx as per PMD Code(s): R62.7 - ADULT FAILURE TO THRIVE (2) Fever Assessment/Plan: -As above, follow cultures; abx as per PMD Code(s): R50.9 - FEVER, UNSPECIFIED Qualifiers: Fever type: due to other condition Qualified Code(s): R50.81 - Fever presenting with conditions classified elsewhere (3) Cellulitis Assessment/Plan: -as above Code(s): L03.90 - CELLULITIS, UNSPECIFIED Qualifiers: Site of cellulitis of extremity: upper extremity Laterality: right (4) Altered mental status Assessment/Plan: -likely due to infection, plan as above for possible sources Code(s): R41.82 - ALTERED MENTAL STATUS, UNSPECIFIED Qualifiers: Altered mental status type: unspecified Qualified Code(s): R41.82 - Altered mental status, unspecified (5) CHF (congestive heart failure) Assessment/Plan: -mild acute on chronic systolic -Agree with low dose lasix for several days with close eye on renal fxn Code(s): I50.9 - HEART FAILURE, UNSPECIFIED Qualifiers: Congestive heart failure type: unspecified congestive heart failure type Congestive heart failure chronicity: unspecified congestive heart failure chronicity Qualified Code(s): I50.9 - Heart failure, unspecified (6) ICD (implantable cardioverter-defibrillator) in place Assessment/Plan: -Secondary to ischemic CM, h/o VT documented -Follow blood cultures; routine interrogations as outpatient Code(s): Z95.810 - PRESENCE OF AUTOMATIC (IMPLANTABLE) CARDIAC DEFIBRILLATOR (7) Afib Assessment/Plan: -Continue Pradaxa Code(s): I48.91 - UNSPECIFIED ATRIAL FIBRILLATION Qualifiers: Atrial fibrillation type: paroxysmal Qualified Code(s): I48.0 - Paroxysmal atrial fibrillation (8) Alzheimer disease Code(s): G30.9 - ALZHEIMER'S DISEASE, UNSPECIFIED Qualifiers: Alzheimer's disease onset: unspecified onset
[2017-06-17] MEDS ORDERED: DOCUSATE SODIUM 100 MG CAPSULE (FP) PO SCH (10:00)
[2017-06-17] MEDS ORDERED: COLCHICINE 0.6 MG TABLET (FP) PO SCH (10:00)
[2017-06-17] MEDS ORDERED: POLYETHYLENE GLYCOL 3350 255 GM BTL PO SCH (10:00)
[2017-06-17] MEDS ORDERED: DONEPEZIL HCL 5 MG TABLET (FP) PO SCH (10:00)
[2017-06-17] MEDS ORDERED: MAGNESIUM OXIDE 400 MG TABLET (FP) PO SCH (10:00)
[2017-06-17] MEDS ORDERED: CHOLECALCIFEROL (VITAMIN D3) 1,000 UNIT TABLET (FP) PO SCH (10:00)
[2017-06-17] MEDS ORDERED: SOTALOL HCL 80 MG TABLET (FP) PO SCH ×2 (10:00→22:00)
[2017-06-17] MEDS ORDERED: POTASSIUM CHLORIDE TABS 20 MEQ TABLET.ER (FP) PO SCH (10:00)
[2017-06-17] MEDS ORDERED: RAMIPRIL 2.5 MG CAPSULE (FP) PO SCH (10:00)
[2017-06-17] MEDS ORDERED: FUROSEMIDE 40 MG/4 ML INJECTABLE VIAL IVPUSH SCH (10:00)
[2017-06-17] MEDS ORDERED: FOLIC ACID 1 MG TABLET (FP) PO SCH (10:00)
[2017-06-17] MEDS ORDERED: DABIGATRAN ETEXILATE MESYLATE 150 MG CAPSULE PO SCH (10:00)
[2017-06-17] MEDS ORDERED: MAGNESIUM HYDROX 2400MG/30ML ORAL SUSPENSION 30 ML CUP PO SCH (10:00)
[2017-06-17] MEDS ORDERED: SILVER SULFADIAZINE 1% TOP CREAM 50 GM JAR TP SCH (10:15)
--- NOTE | 2017-06-17 10:19 | HP ---
Admitting History and Physical - Admission Chief Complaint: 86 y.o M with dementia was BI from home by EMS because of acute change in MS, confusion, generalized weakness, inability to move and lethargy. Hypotensive after admission (SBP 70) with low grade fevers.pt was given IV bolus fluids, bld, urine cx obtained and ABX started. 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 HX of VT and AICD placement. Previously found to have A.fib on Holter by Dr. Jones and after last discharge the pt was re- started on Pradaxa PO. Significant weight loss over the last year-w/u negative. Constipation-recent hospitalization at [facility]-EGD/Colonoscopy done-found rectal ulcer. Diverticulosis, Possible bladder lesion and hematuria. Seen by urology during last hospitalization. Advised f/u as outpatient. Pressure ulcers. Gallstones. 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 Cardiovascular: Yes: AFIB (Paroxysm on Holter), CAD, CHF, HTN, Hyperlipdemia, Murmur Gastrointestinal: No: Cancer Hepatobiliary: Yes: Cholelithiasis Renal/: Yes: BPH, Other (Bladder mass) Heme/Onc: Yes: Thrombocytopenia Musculoskeletal: Yes: Osteoarthritis Rheumatology: Yes: Other (Pseudogout-on Colchicine) - Past Surgical History Past Surgical History: Yes: AICD, CABG - Smoking History Smoking history: Never smoked Have you smoked in the past 12 months: No Aproximately how many cigarettes per day: 10 If you are a former smoker, when did you quit?: 40 yrs - Alcohol/Substance Use Hx Alcohol Use: No - Social History ADL: Independent History of Recent Travel: No Home Medications - Allergies Allergies/Adverse Reactions: Allergies Allergy/AdvReac Type Severity Reaction Status Date / Time No Known Allergies Allergy Verified 06/16/17 22:40 - Home Medications Home Medications: Ambulatory Orders Folic Acid - 1 mg PO DAILY 12/01/13 Ramipril [Altace] 10 mg PO DAILY 12/01/13 Simvastatin [Zocor -] 40 mg PO HS 12/01/13 Sotalol HCl [Sotalol] 40 mg PO BID 12/01/13 Cholecalciferol (Vitamin D3) [Vitamin D3] 1,000 unit PO DAILY 02/12/14 Colchicine [Colcrys] 0.5 mg PO DAILY 06/10/16 Sennosides/Docusate Sodium [Senna Plus Tablet] 1 each PO ASDIR PRN 06/10/16 Polyethylene Glycol 3350 [Miralax 255 gm Btl -] 17 gm PO BID #1 bottle 06/16/16 Dabigatran Etexilate Mesylate [Pradaxa -] 150 mg PO BID 06/25/16 Donepezil HCl 5 mg PO DAILY 12/26/16 Finasteride 5 mg PO DAILY 12/26/16 Olanzapine 2.5 mg PO HS 12/26/16 Docusate Sodium [Colace -] 100 mg PO DAILY #30 capsule 01/22/17 Family Disease History - Family Disease History Family History: Unable to Obtain Review of Systems Unable to obtain ROS, reason: Advanced dementia Physical Examination Vital Signs: Vital Signs Temperature 99.0 F 06/17/17 03:35 Pulse Rate 72 06/17/17 03:35 Respiratory Rate 30 H 06/17/17 03:35 Blood Pressure 105/62 06/17/17 03:35 O2 Sat by Pulse Oximetry (%) 94 L 06/17/17 03:35 Constitutional: Yes: Pallor, Other (Lethargic, responds to painful stimuli) Eyes: Yes: Conjunctiva Clear HENT: Yes: Atraumatic, Normocephalic, Hoarseness, Nasal Congestion, Pharyngeal Erythema Neck: Yes: Trachea Midline. No: Rigid, Tenderness, Thyromegaly Cardiovascular: Yes: Bradycardia, Pulse Irregular, Murmur, S1, S2, Other (AICD in place) Respiratory: Yes: Cough, On Nasal O2, Rales (B/l) Gastrointestinal: Yes: Normal Bowel Sounds, Soft. No: Abdomen, Obese, Ascites, Palpable Mass, Tenderness ...Rectal Exam: Yes: Sphincter Tone Normal. No: Mass Renal/: No: Anuria Breast(s): Yes: Left, Right Musculoskeletal: No: Joint Swelling Extremities: No: Calf Tenderness, Cold, Cyanosis Edema: No Peripheral Pulses WNL: No Peripheral Pulses: Left Doralis Pedis: 0, Right Dorsalis Pedis: 0 Integumentary: Yes: Pressure Ulcer (Both shins, 3 pressure injuries stage 2 sacrum, left heel) Neurological: Yes: Lethargy (Received 1 mg IVP Lorazepam in ER). No: Alert, Oriented, Unresponsive Psychiatric: No: Alert, Oriented Labs: CBC, BMP 06/16/17 23:38 06/16/17 23:38 Imaging - Results Chest X-ray: Report Reviewed Cat Scan: Report Reviewed (Chest, head) EKG: Image Reviewed Problem List - Problems (1) Altered mental status Assessment/Plan: R/o now effect of Lorazepam. Possible infectios process with toxic-metabolic encephalopathy superimposed on long standing dementia. Code(s): R41.82 - ALTERED MENTAL STATUS, UNSPECIFIED Qualifiers: Altered mental status type: unspecified Qualified Code(s): R41.82 - Altered mental status, unspecified (2) Fever Assessment/Plan: Bld cx, ua cx-P Ceftriaxone given-? UTI And Vanco 1 gm. Code(s): R50.9 - FEVER, UNSPECIFIED Qualifiers: Fever type: due to other condition Qualified Code(s): R50.81 - Fever presenting with conditions classified elsewhere (3) Pneumonia Assessment/Plan: CT c/w RLL infiltrate effusion, R/O PNA, r/o aspiration. IV ABX pulm consult. Hypotension now IV fluids. Code(s): J18.9 - PNEUMONIA, UNSPECIFIED ORGANISM Qualifiers: Laterality: right Lung location: lower lobe of lung (4) CHF (congestive heart failure), NYHA class III Assessment/Plan: Noted vascular congestion on CT chest. Cardiology consult appreciated. Follow volume status IV lasix, follow electrolytes. Code(s): I50.9 - HEART FAILURE, UNSPECIFIED Qualifiers: Congestive heart failure type: combined Congestive heart failure chronicity : acute on chronic Qualified Code(s): I50.43 - Acute on chronic combined systolic (congestive) and diastolic (congestive) heart failure (5) Afib Assessment/Plan: Continue Pradaxa PO Code(s): I48.91 - UNSPECIFIED ATRIAL FIBRILLATION Qualifiers: Atrial fibrillation type: paroxysmal Qualified Code(s): I48.0 - Paroxysmal atrial fibrillation
[2017-06-17] MEDS ORDERED: METRONIDAZOLE 500 MG PREMIXED 500 MG/100 ML MG IVPB SCH (10:45)
--- NOTE | 2017-06-17 11:18 | EKG ---
Test Reason : Blood Pressure : / mmHG Vent. Rate : 061 BPM Atrial Rate : 068 BPM P-R Int : 000 ms QRS Dur : 126 ms QT Int : 570 ms P-R-T Axes : 000 -27 -66 degrees QTc Int : 573 ms ATRIAL FIBRILLATION WITH PREMATURE VENTRICULAR OR ABERRANTLY CONDUCTED COMPLEXES NON-SPECIFIC INTRA-VENTRICULAR CONDUCTION BLOCK T WAVE ABNORMALITY, CONSIDER ANTEROLATERAL ISCHEMIA ABNORMAL ECG WHEN COMPARED WITH ECG OF 17-JUN-2017 02:57, ATRIAL FIBRILLATION HAS REPLACED SINUS RHYTHM NONSPECIFIC T WAVE ABNORMALITY HAS REPLACED INVERTED T WAVES IN INFERIOR LEADS QT HAS SHORTENED Confirmed by YUNIER GONCALVES, ALETHA ([id number]) on 06/17/2017 11:17:38 AM Referred By: Jordan ECHOLS Confirmed By:ALETHA FAYE MD
--- NOTE | 2017-06-17 11:19 | EKG ---
Test Reason : Blood Pressure : / mmHG Vent. Rate : 089 BPM Atrial Rate : 060 BPM P-R Int : 000 ms QRS Dur : 108 ms QT Int : 586 ms P-R-T Axes : 118 001 -56 degrees QTc Int : 712 ms POOR DATA QUALITY, INTERPRETATION MAY BE ADVERSELY AFFECTED SINUS RHYTHM WITH FREQUENT and consecutive PREMATURE VENTRICULAR COMPLEXES AND FUSION COMPLEXES PROLONGED QT ABNORMAL ECG WHEN COMPARED WITH ECG OF 22-JAN-2017 10:30, SIGNIFICANT CHANGES HAVE OCCURRED Confirmed by ALETHA FAYE MD ([id number]) on 06/17/2017 11:18:30 AM Referred By: Confirmed By:ALETHA FAYE MD
--- NOTE | 2017-06-17 12:15 | CON.PULM ---
Consult Consult Specialty:: PULMONARY Referred by:: WADE Reason for Consultation:: PNEUMONIA - History of Present Illness Chief Complaint: FAILURE TO THRIVE History of Present Illness: The patient is an 86 year old male, with a significant past medical history of hypertension, hyperlipidemia, hypokalemia, CAD, alzheimer's, AFib (on Pradaxa), and CHF who presents to the emergency department with daughter for increased confusion yesterday evening. As per the patient's daughter, in the last several days, the patient has become increasingly weak with progressively decreasing appetite. The daughter states her father was unable to walk secondary to weakness today The daughter states there was no syncope that was observed or reported by others. No reported chest pain, shortness of breath, headache or dizziness. No reported fever, chills, nausea, vomit, diarrhea, abdominal pain or constipation. No reported dysuria, frequency, urgency and hematuria. 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 Cardio/Vascular: Yes: AFIB (Paroxysm on Holter), CAD, CHF, HTN, Hyperlipdemia, Murmur Gastrointestinal: No: Cancer Hepatobiliary: Yes: Cholelithiasis Renal/: Yes: BPH, Other (Bladder mass) Musculoskeletal: Yes: Osteoarthritis Rheumatology: Yes: Other (Pseudogout-on Colchicine) - Past Surgical History Past Surgical History: Yes: AICD, CABG - Alcohol/Substance Use Hx Alcohol Use: No - Smoking History Smoking history: Never smoked Have you smoked in the past 12 months: No Aproximately how many cigarettes per day: 10 If you are a former smoker, when did you quit?: 40 yrs - Social History ADL: Independent History of Recent Travel: No Home Medications - Allergies Allergies/Adverse Reactions: Allergies Allergy/AdvReac Type Severity Reaction Status Date / Time No Known Allergies Allergy Verified 06/16/17 22:40 - Home Medications Home Medications: Ambulatory Orders Folic Acid - 1 mg PO DAILY 12/01/13 Ramipril [Altace] 10 mg PO DAILY 12/01/13 Simvastatin [Zocor -] 40 mg PO HS 12/01/13 Sotalol HCl [Sotalol] 40 mg PO BID 12/01/13 Cholecalciferol (Vitamin D3) [Vitamin D3] 1,000 unit PO DAILY 02/12/14 Colchicine [Colcrys] 0.5 mg PO DAILY 06/10/16 Sennosides/Docusate Sodium [Senna Plus Tablet] 1 each PO ASDIR PRN 06/10/16 Polyethylene Glycol 3350 [Miralax 255 gm Btl -] 17 gm PO BID #1 bottle 06/16/16 Dabigatran Etexilate Mesylate [Pradaxa -] 150 mg PO BID 06/25/16 Donepezil HCl 5 mg PO DAILY 12/26/16 Finasteride 5 mg PO DAILY 12/26/16 Olanzapine 2.5 mg PO HS 12/26/16 Docusate Sodium [Colace -] 100 mg PO DAILY #30 capsule 01/22/17 Family Disease History - Family Disease History Family History: Unable to Obtain Review of Systems Unable to obtain ROS, reason: UNABLE TO OBTAIN Physical Exam Vital Sings: Vital Signs Temperature 99 F 06/17/17 10:00 Pulse Rate 53 L 06/17/17 10:00 Respiratory Rate 18 06/17/17 10:00 Blood Pressure 88/44 06/17/17 10:00 O2 Sat by Pulse Oximetry (%) 94 L 06/17/17 03:35 Constitutional: Yes: Pallor HENT: Yes: Normocephalic Neck: Yes: Trachea Midline Cardiovascular: Yes: Pulse Irregular, S1, S2 Respiratory: Yes: Diminished Gastrointestinal: Yes: Soft Edema: No Neurological: Yes: Pre-Existing Deficit Labs: CBC, BMP 06/16/17 23:38 06/16/17 23:38 REST REVIEWED Imaging - Results Chest X-ray: Report Reviewed, Image Reviewed X-ray: Report Reviewed, Image Reviewed Problem List - Problems (1) Pneumonia Code(s): J18.9 - PNEUMONIA, UNSPECIFIED ORGANISM (2) Afib Code(s): I48.91 - UNSPECIFIED ATRIAL FIBRILLATION Qualifiers: Atrial fibrillation type: paroxysmal Qualified Code(s): I48.0 - Paroxysmal atrial fibrillation (3) Altered mental status Code(s): R41.82 - ALTERED MENTAL STATUS, UNSPECIFIED Qualifiers: Altered mental status type: unspecified Qualified Code(s): R41.82 - Altered mental status, unspecified (4) Alzheimer disease Code(s): G30.9 - ALZHEIMER'S DISEASE, UNSPECIFIED Qualifiers: Alzheimer's disease onset: unspecified onset (5) Failure to thrive in adult Code(s): R62.7 - ADULT FAILURE TO THRIVE (6) Fever Code(s): R50.9 - FEVER, UNSPECIFIED Qualifiers: Fever type: due to other condition Qualified Code(s): R50.81 - Fever presenting with conditions classified elsewhere Assessment/Plan LIKELY WORSENING OF ALREADY COMPROMISED MENTAL STATUS FROM PNEUMONIA AGREE WITH ANTIBIOTICS/O2 SUPPLEMENTATION LOCAL CARE TO PRESSURE [facility]LCERS HAVE REQUESTED INFLU SWAB/URINE AGS WILL FOLLOW THANK YOU Juan R MARVIN MD
[2017-06-17 14:12] LABS: ARTERIAL BLD GAS O2 SATURATION 97.5 % (90-98.9); ARTERIAL BLOOD GAS BASE EXCESS 2.5 meq/l (-2-2); ARTERIAL BLOOD GAS PO2 96.1 mmHg (68-100); ARTERIAL BLOOD GAS pH 7.37 (7.35-7.45)
[2017-06-17 14:14] LABS: ALLENS TEST POSITIVE
[2017-06-17 15:12] LABS: HEMATOCRIT 36.4 % (35.4-49); HEMOGLOBIN 11.4 GM/dL (11.7-16.9); MCH 28.3 pg (25.7-33.7); MCHC 31.3 g/dl (32.0-35.9); MEAN CELL VOLUME 90.2 fl (80-96); MEAN PLT VOLUME 7.7 fl (7.5-11.1); PLATELET COUNT 135 K/MM3 (134-434); RBC 4.04 M/mm3 (4.00-5.60); RDW 15.6 % (11.9-15.9)
--- NOTE | 2017-06-17 15:20 | CONSULT ---
Consultation: REQUESTING PROVIDER: CONSULT REQUEST: We have been asked to medically evaluate this patient for + blood cx. HISTORY OF PRESENT ILLNESS: 86 y/o M with PMH HTN, HLD, hypokalemia, CAD, Alzheimer's, afib (on Pradaxa), CHF, gout, who was brought in yesterday for weakness, combatativeness, and lethargy. Over last few days, his family noticed he was asking to have his diaper changed more frequently and that he was having bladder incontinence. Pt has had this over the past year, but it had become severe recently. Pt endorsed runny nose x 1 week and chills that started yesterday. Denied COLE, SOB, chest pain, or changes in bowel function. At baseline, pt alternates between being conversant and confused, as per daughter Natalie. Pt ambulates on own without a walker freely to the bathroom with shuffling gait. Lives at home and has a health aid. This afternoon, pt had a rapid response called on him for BP of 77/30. He received 1 L NS and transferred from to ICU. BP subsequently improved to 111/ 66. ID team consulted for + blood cx. REVIEW OF SYSTEMS: CONSTITUTIONAL: +chills Absent: fever, chills, diaphoresis, generalized weakness, malaise, loss of appetite, weight change HEENT: +rhinorrhea Absent: rhinorrhea, nasal congestion, throat pain, throat swelling, difficulty swallowing, mouth swelling, ear pain, eye pain, visual changes CARDIOVASCULAR: +irregular HR Absent: chest pain, syncope, palpitations, irregular heart rate, lightheadedness , peripheral edema RESPIRATORY: +cough Absent: cough, shortness of breath, dyspnea with exertion, orthopnea, wheezing, stridor, hemoptysis GASTROINTESTINAL: Absent: abdominal pain, abdominal distension, nausea, vomiting, diarrhea, constipation, melena, hematochezia GENITOURINARY: +urinary frequency Absent: dysuria, frequency, urgency, hesitancy, hematuria, flank pain, genital pain MUSCULOSKELETAL: Absent: myalgia, arthralgia, joint swelling, back pain, neck pain SKIN: Absent: rash, itching, pallor HEMATOLOGIC/IMMUNOLOGIC: +ecchymoses on lower extremities (2/2 Pradaxa as per daughter) Absent: easy bleeding, easy bruising, lymphadenopathy, frequent infections ENDOCRINE: Absent: unexplained weight gain, unexplained weight loss, heat intolerance, cold intolerance NEUROLOGIC: Absent: headache, focal weakness or paresthesias, dizziness, unsteady gait, seizure, mental status changes, bladder or bowel incontinence PSYCHIATRIC: +dementia Absent: anxiety, depression, suicidal or homicidal ideation, hallucinations. PHYSICAL EXAMINATION Vital Signs - 24 hr 06/16/17 06/16/17 06/17/17 22:40 23:59 00:19 Temperature 101.7 F H Respiratory 14 28 H Rate Blood Pressure 103/62 77/40 O2 Sat by Pulse 91 L 89 L Oximetry (%) 06/17/17 06/17/17 06/17/17 00:20 03:24 03:35 Temperature Respiratory 31 H 30 H Rate Blood Pressure O2 Sat by Pulse 94 L 94 L 94 L Oximetry (%) 06/17/17 06/17/17 06/17/17 10:00 13:33 14:53 Temperature 97.4 F L Respiratory 18 26 H Rate Blood Pressure 88/44 77/39 111/66 O2 Sat by Pulse Oximetry (%) GENERAL: Awake, AAOx1 (to self), in no acute distress. HEAD: Normal with no signs of trauma EYES: Pupils equal, round and reactive to light, extraocular movements intact, sclera anicteric, conjunctiva clear. EARS, NOSE, THROAT: Ears normal, nares patent, oropharynx clear without exudates. NECK: Normal range of motion, supple without lymphadenopathy, JVD, or masses. LUNGS: Breath sounds equal, clear to auscultation bilaterally. HEART: Irregular rate and rhythm, normal S1 and S2 without murmur, rub or gallop. ABDOMEN: Soft, nontender, not distended, normoactive bowel sounds, no guarding, no rebound, no masses. LOWER EXTREMITIES: 2+ posterior tibial pulses, warm. No edema noted. Ecchymoses noted on lower extremities. (old finding as per daughter) NEUROLOGICAL: Cranial nerves II-XII grossly intact. PSYCHIATRIC: disagreeable Laboratory Tests 06/17/17 06/17/17 06/17/17 02:20 14:06 14:30 WBC 11.0 H D Hgb 11.4 L Hct 36.4 Plt Count 135 D Puncture Site Right radial ABG pH 7.37 ABG pCO2 at Pt Temp 50.0 H ABG pO2 at Pt Temp 96.1 ABG HCO3 28.0 H Urine Protein 2+ H Urine Blood 2+ H Ur Leukocyte Esterase 1+ H Urine WBC (Auto) 368 Active Medications Generic Name Dose Route Start Last Admin Trade Name Palmira PRN Reason Stop Dose Admin Atorvastatin Calcium 20 mg 06/17/17 22:00 Lipitor - PO HS [facility] Chlorhexidine Gluconate 1 applic 06/17/17 22:00 Hibiclens For Decolonization - TP HS [facility] Cholecalciferol 1,000 unit 06/17/17 10:00 06/17/17 12:32 Vitamin D3 - PO Not Given DAILY [facility] Colchicine 0.6 mg 06/17/17 10:00 06/17/17 12:25 Colcrys - PO Not Given DAILY [facility] Dabigatran 150 mg 06/17/17 10:00 06/17/17 12:32 Pradaxa - PO Not Given BID [facility] Docusate Sodium 100 mg 06/17/17 10:00 06/17/17 12:24 Colace - PO Not Given DAILY [facility] Donepezil HCl 5 mg 06/17/17 10:00 06/17/17 12:24 Aricept - PO Not Given DAILY [facility] Folic Acid 1 mg 06/17/17 10:00 06/17/17 12:25 Folic Acid - PO Not Given DAILY [facility] Furosemide 20 mg 06/17/17 10:00 06/17/17 12:32 Lasix Injection - IVPUSH Not Given DAILY [facility] CEFTRIAXONE 1 G/50 ML PREMIX 50 mls @ 100 mls/hr 06/17/17 04:45 06/17/17 04: 55 Ceftriaxone 1 Gm-D5w Bag IVPB 100 mls/hr DAILY [facility] Administration Metronidazole 500 mg in 100 mls @ 100 mls/hr 06/17/17 10:45 06/17/17 12:37 Flagyl 500mg Premixed Ivpb - IVPB 100 mls/hr Q8H-IV [facility]ASIR Administration Sodium Chloride 1,000 mls @ 200 mls/hr 06/17/17 14:15 Normal Saline - IV ASDIR [facility] Magnesium Hydroxide 30 ml 06/17/17 10:00 06/17/17 12:32 Milk Of Magnesia - PO Not Given DAILY [facility] Magnesium Oxide 400 mg 06/17/17 10:00 06/17/17 12:32 Mag-Ox - PO Not Given BID [facility] Mupirocin 1 applic 06/17/17 22:00 Bactroban Ointment (For Decolonization) - NS 06/22/17 21:59 BID [facility] Polyethylene Glycol 17 gm 06/17/17 10:00 06/17/17 12:32 Miralax (For Bowel Prep) - PO Not Given BID [facility] Potassium Chloride 20 meq 06/17/17 10:00 06/17/17 12:32 K-Dur - PO Not Given DAILY [facility] Senna/Docusate Sodium 1 tablet 06/17/17 00:24 Pericolace - PO DAILY PRN CONSTIPATION Silver Sulfadiazine 1 applic 06/17/17 10:15 Silvadene - TP DAILY [facility] Sotalol HCl 40 mg 06/17/17 10:00 06/17/17 12:24 Betapace - PO Not Given BID [facility] Microbiology 06/16/17 23:38 Blood - Peripheral Venous Blood Culture - Preliminary Pending Organism: gram - bacilli 06/16/17 23:38 Blood - Peripheral Venous Blood Culture - Preliminary Pending Organism: gram - bacilli ASSESSMENT/PLAN: #gram - septicemia most likely 2/2 UTI -UA: cloudy, protein 2+, blood 2+, 1+ leuk esterase, [id number] -febrile Tmax 101.7F, white count 11k, BP on admission 77/30, HR72, tachypneic RR28 -blood cx: gram - bacilli -Started on zosyn 3.375 gm q6h IV - covers pseudomonas, gram -, anaerobes -F/u urine cx #Pneumonia -CXR: RLL infiltrate evident. Increased interstitial markings -F/u flu swab, urine antigens Prerna Crawford MD PGY-1 ID Team Dispo: We will continue to follow the patient. Thank you for this consultative opportunity. Visit type - Emergency Visit Emergency Visit: No - New Patient This patient is new to me today: Yes Date on this admission: 06/17/17 - Critical Care Critical Care patient: Yes Total Critical Care Time (in minutes): 32 Critical Care Statement: The care of this patient involved high complexity decision making to prevent further life threatening deterioration of the patient 's condition and/or to evaluate & treat vital organ system(s) failure or risk of failure.
[2017-06-17 15:46] LABS: ANISOCYTOSIS 1+; MACROCYTOSIS 0; PLATELET ESTIMATE DECREASED
--- NOTE | 2017-06-17 15:57 | PN ---
Teaching Attending Note Name of Resident: Prerna Crawford ATTENDING PHYSICIAN STATEMENT I saw and evaluated the patient. I reviewed the resident's note and discussed the case with the resident. I agree with the resident's findings and plan as documented. SUBJECTIVE: awake and alert brought in by family last night with chills and shaking started on vanco/ceftriaxone and flagyl for uti and pneumonia developed hypotension on the floor- rapid response called now in ICU BP improved with IVF blood cultures 09/30 GNR OBJECTIVE: Vital Signs Period Temp Pulse Resp BP Sys/Zhu Pulse Ox Last 24 Hr 97.4 F-101.7 F 53-87 14-31 77-111/39-66 89-100 alert nad cor rrr lungs decreased bs at bases abd soft,nt ext no edema CBC, BMP 06/17/17 14:30 Microbiology 06/16/17 23:38 Blood - Peripheral Venous Blood Culture - Preliminary Pending Organism 06/16/17 23:38 Blood - Peripheral Venous Blood Culture - Preliminary Pending Organism ASSESSMENT AND PLAN: gram negative sepsis switch to zosyn UTI pneumonia d/w daughter at bedside Problem List - Problems (1) Gram negative sepsis Code(s): A41.50 - GRAM-NEGATIVE SEPSIS, UNSPECIFIED (2) UTI (urinary tract infection) Code(s): N39.0 - URINARY TRACT INFECTION, SITE NOT SPECIFIED (3) Pneumonia Code(s): J18.9 - PNEUMONIA, UNSPECIFIED ORGANISM
[2017-06-17 15:59] LABS: CHLORIDE 105 mmol/L (98-107); POTASSIUM 3.2 mmol/L (3.5-5.1); SODIUM 142 mmol/L (136-145)
[2017-06-17] MEDS ORDERED: PIPERACILLIN/TAZOB 3.375 GM/50 ML PRE-DOCKED IVPB SCH (16:00)
[2017-06-17] MEDS ORDERED: MAGNESIUM SULF 50% (8.12 MEQ/2 ML-1 GM VIAL) IVPB ONE (16:19)
[2017-06-17] MEDS: PIPERACILLIN/TAZOB 3.375 GM 3.375 GM in DEXTROSE 5%-WATER - 100 ML IVPB SCH ×2 (17:02→20:58)
[2017-06-17 17:03] LABS: ALBUMIN 2.4 g/dl (3.4-5.0); ALK PHOS 102 U/L (45-117); ANION GAP 13 (8-16); BILIRUBIN,TOTAL 0.5 mg/dL (0.2-1.0); BLOOD UREA NITROGEN 33 mg/dL (7-18); CALCIUM 7.5 mg/dL (8.5-10.1); CO2 24 mmol/L (21-32); CREATININE 1.7 mg/dL (0.7-1.3); GLUCOSE,RANDOM 98 mg/dL (74-106); SGOT/AST 77 U/L (15-37); SGPT/ALT 53 U/L (12-78); TOT PROT 5.3 g/dl (6.4-8.2)
--- NOTE | 2017-06-17 17:08 | RAPID ---
Physical Examination Vital Signs: Vital Signs Temperature 97.7 F 06/17/17 16:00 Pulse Rate 95 H 06/17/17 16:00 Respiratory Rate 24 06/17/17 16:00 Blood Pressure 120/57 06/17/17 16:00 O2 Sat by Pulse Oximetry (%) 100 06/17/17 15:12 Constitutional: Yes: Pallor, Other (lethargic) Cardiovascular: Yes: Regular Rate and Rhythm Respiratory: Yes: CTA Bilaterally Gastrointestinal: Yes: WNL Edema: LLE: Trace, RLE: Trace Neurological: Yes: Lethargy, Unresponsive Labs: CBC, BMP 06/17/17 14:30 Rapid Response - Rapid Response Assessment: Rapid response called for hypotension for this 86M who presented to the hospital with AMS and lethargy, admitted for sepsis likely 2/2 PNA. MD came to evaluate the patient. Pt's BP was initially 70/30s, so fluids were started. Pt satting 98% on 4L NC. BGM was 98. Repeat BP taken soon after was 100/50s. Pt was minimally responsive to verbal and physical stimuli. Cardiac exam was RRR, no murmurs. Pulmonary exam was CTAB, no rales or wheezing. Abdominal exam was soft, NT, ND. trace LE edema. A&P: 86M with hypotension likely 2/2 sepsis from PNA -NS -pt already receiving ceftriaxone, flagyl, and vancomycin -CXR, EKG, ABG, lactic acid, cbc, cmp ordered -pt transferred to ICU
[2017-06-17] MEDS: KCL 10 MEQ IVPB 10 MEQ/100 ML INFUS.BAG IVPB SCH ×3 (18:23→21:20)
--- NOTE | 2017-06-17 20:55 | CONSULT ---
Consult Consult Specialty:: Pulm/CCM Reason for Consultation:: Hypotension responsive to fluid bolus - History of Present Illness History of Present Illness: 86yom with PMH HTN, HLD, hypokalemia, CAD, Alzheimer's, afib (on Pradaxa), CHF, gout, brought in yesterday for weakness, lethargy and increased frequency. Labs and imaging show e/o UTI and possible PNA and he was admitted to the floor. On the floor he was started on empiric coverage with Ceftriaxone, flagyl and vanc then switched to Zosyn. This afternoon a rapid response was called for hypotension BP 77/30. BP improved to 111/66 after 1L NS bolus. He was transferred to the ICU for further management. Of note pt was made DNR by family. Blood cxls with pending organism. Rec'd in ICU lethargic and agitated when awake. SBP 110-120 - Past Medical History [employer]: Yes: Dementia Cardio/Vascular: Yes: AFIB (Paroxysm on Holter), CAD, CHF, HTN, Hyperlipdemia, Murmur Gastrointestinal: No: Cancer Hepatobiliary: Yes: Cholelithiasis Renal/: Yes: BPH, Other (Bladder mass) Musculoskeletal: Yes: Osteoarthritis Rheumatology: Yes: Other (Pseudogout-on Colchicine) - Past Surgical History Past Surgical History: Yes: AICD, CABG - Alcohol/Substance Use Hx Alcohol Use: No - Smoking History Smoking history: Never smoked Have you smoked in the past 12 months: No Aproximately how many cigarettes per day: 10 If you are a former smoker, when did you quit?: 40 yrs - Social History ADL: Independent History of Recent Travel: No Home Medications - Allergies Allergies/Adverse Reactions: Allergies Allergy/AdvReac Type Severity Reaction Status Date / Time No Known Allergies Allergy Verified 06/16/17 22:40 - Home Medications Home Medications: Ambulatory Orders Folic Acid - 1 mg PO DAILY 12/01/13 Ramipril [Altace] 10 mg PO DAILY 12/01/13 Simvastatin [Zocor -] 40 mg PO HS 12/01/13 Sotalol HCl [Sotalol] 40 mg PO BID 12/01/13 Cholecalciferol (Vitamin D3) [Vitamin D3] 1,000 unit PO DAILY 02/12/14 Colchicine [Colcrys] 0.5 mg PO DAILY 12/13/16 Sennosides/Docusate Sodium [Senna Plus Tablet] 1 each PO ASDIR PRN 06/10/16 Polyethylene Glycol 3350 [Miralax 255 gm Btl -] 17 gm PO BID #1 bottle 06/16/16 Dabigatran Etexilate Mesylate [Pradaxa -] 150 mg PO BID 06/25/16 Donepezil HCl 5 mg PO DAILY 12/26/16 Finasteride 5 mg PO DAILY 12/26/16 Olanzapine 2.5 mg PO HS 12/26/16 Docusate Sodium [Colace -] 100 mg PO DAILY #30 capsule 01/22/17 Family Disease History - Family Disease History Family History: Unable to Obtain Review of Systems Unable to obtain ROS, reason: Unable Physical Exam Vital Signs: Vital Signs Temperature 100.0 F H 06/17/17 19:25 Pulse Rate 85 06/17/17 18:41 Respiratory Rate 24 06/17/17 18:41 Blood Pressure 126/64 06/17/17 18:41 O2 Sat by Pulse Oximetry (%) 100 06/17/17 15:12 Constitutional: Yes: Well Nourished, No Distress Eyes: Yes: WNL HENT: Yes: Atraumatic, Normocephalic Neck: Yes: Supple Cardiovascular: Yes: Pulse Irregular, S1, S2 Respiratory: Yes: CTA Bilaterally, Diminished (base), On Nasal O2 Gastrointestinal: Yes: Soft Renal/: Yes: Banuelos Present, Incontinence Edema: No Peripheral Pulses WNL: Yes Integumentary: Yes: Bruising Neurological: Yes: Lethargy, Other (Restless at times; not following commands) Psychiatric: Yes: Agitated Labs: CBC, BMP 06/17/17 14:30 06/17/17 14:30 CBC,CMP WBC 11.0 K/mm3 (4.0-10.0) H D 06/17/17 14:30 RBC 4.04 M/mm3 (4.00-5.60) 06/17/17 14:30 Hgb 11.4 GM/dL (11.7-16.9) L 06/17/17 14:30 Hct 36.4 % (35.4-49) 06/17/17 14:30 MCV 90.2 fl (80-96) 06/17/17 14:30 MCH 28.3 pg (25.7-33.7) 06/17/17 14:30 MCHC 31.3 g/dl (32.0-35.9) L 06/17/17 14:30 RDW 15.6 % (11.9-15.9) 06/17/17 14:30 Plt Count 135 K/MM3 (134-434) D 06/17/17 14:30 MPV 7.7 fl (7.5-11.1) 06/17/17 14:30 Neutrophils % No Result Required. 06/17/17 14:30 Neutrophils % (Manual) 79.2 % (42.8-82.8) 06/17/17 14:30 Band Neutrophils % 15.8 % 06/17/17 14:30 Lymphocytes % No Result Required. 06/17/17 14:30 Lymphocytes % (Manual) 1.0 % (8-40) L 06/17/17 14:30 Monocytes % 7.8 % (3.8-10.2) 06/16/17 23:38 Monocytes % (Manual) 3 % (3.8-10.2) L 06/17/17 14:30 Eosinophils % 0.0 % (0-4.5) D 06/16/17 23:38 Eosinophils % (Manual) 0.0 % (0-4.5) 06/17/17 14:30 Basophils % 0.2 % (0-2.0) 06/16/17 23:38 Basophils % (Manual) 0.0 % (0-2.0) 06/17/17 14:30 Myelocytes % (Man) 1 % (0-2) 06/17/17 14:30 Metamyelocytes 0 % (0-2) 06/17/17 14:30 Hypochromia 0 06/17/17 14:30 Platelet Estimate Decreased 06/17/17 14:30 Polychromasia 0 06/17/17 14:30 Anisocytosis 1+ 06/17/17 14:30 Microcytosis 1+ 06/17/17 14:30 Macrocytosis 0 06/17/17 14:30 Sodium 142 mmol/L (136-145) 06/17/17 14:30 Potassium 3.2 mmol/L (3.5-5.1) L 06/17/17 14:30 Chloride 105 mmol/L (98-107) 06/17/17 14:30 Carbon Dioxide 24 mmol/L (21-32) 06/17/17 14:30 Anion Gap 13 (8-16) 06/17/17 14:30 BUN 33 mg/dL (7-18) H D 06/17/17 14:30 Creatinine 1.7 mg/dL (0.7-1.3) H D 06/17/17 14:30 Creat Clearance w eGFR 38.50 (>60) 06/17/17 14:30 POC Glucometer 95 UNITS (80-120) 06/17/17 13:55 Random Glucose 98 mg/dL (74-106) D 06/17/17 14:30 Lactic Acid 1.8 mmol/L (0.4-2.0) 06/17/17 14:30 Calcium 7.5 mg/dL (8.5-10.1) L 06/17/17 14:30 Magnesium 1.7 mg/dL (1.8-2.4) L 06/16/17 23:38 Total Bilirubin 0.5 mg/dL (0.2-1.0) D 06/17/17 14:30 AST 77 U/L (15-37) H D 06/17/17 14:30 ALT 53 U/L (12-78) D 06/17/17 14:30 Alkaline Phosphatase 102 U/L (45-117) 06/17/17 14:30 Creatine Kinase 121 IU/L (39-308) 06/16/17 23:38 Troponin I 0.02 ng/ml (0.00-0.05) 06/16/17 23:38 B-Natriuretic Peptide 6754.79 pg/ml (5-450) H 06/16/17 23:31 Total Protein 5.3 g/dl (6.4-8.2) L 06/17/17 14:30 Albumin 2.4 g/dl (3.4-5.0) L 06/17/17 14:30 Urine Test Results Urine Color Dkyellow 06/17/17 02:20 Urine Appearance Cloudy 06/17/17 02:20 Urine pH 6.0 (5.0-8.0) 06/17/17 02:20 Ur Specific [place] 1.012 (1.001-1.035) 06/17/17 02:20 Urine Protein 2+ (NEGATIVE) H 06/17/17 02:20 Urine Glucose (UA) Negative (NEGATIVE) 06/17/17 02:20 Urine Ketones Negative (NEGATIVE) 06/17/17 02:20 Urine Blood 2+ (NEGATIVE) H 06/17/17 02:20 Urine Nitrite Negative (NEGATIVE) 06/17/17 02:20 Urine Bilirubin Negative (NEGATIVE) 06/17/17 02:20 Ur Leukocyte Esterase 1+ (NEGATIVE) H 06/17/17 02:20 Urine Bacteria Moderate /hpf (NONE SEEN) 06/17/17 02:20 Urine Mucus Rare 06/17/17 02:20 Vital Signs Period Temp Pulse Resp BP Sys/Zhu Pulse Ox Last 24 Hr 97.4 F-101.7 F 53-98 14-31 77-126/39-66 89-100 Active Medications Atorvastatin Calcium (Lipitor -) [address] [facility] Last Admin: 06/17/17 21:05 Dose: Not Given Chlorhexidine Gluconate (Hibiclens For Decolonization -) [address] [facility] Cholecalciferol (Vitamin D3 -) 1,[address] [facility] Colchicine (Colcrys -) 0.[address] [facility] Dabigatran (Pradaxa -) [address] [facility] Last Admin: 06/17/17 21:05 Dose: Not Given Docusate Sodium (Colace -) [address] [facility] Donepezil HCl (Aricept -) [address] [facility] Folic Acid (Folic Acid -) [address] [facility] Furosemide (Lasix Injection -) [address] [facility] Piperacillin Sod/Tazobactam (Sod 3.375 gm/ Dextrose) 100 mls @ 200 mls/hr IVPB Q6H-IV [facility] Last Admin: 06/17/17 20:58 Dose: Not Given Sodium Chloride (Normal Saline -) 1,000 mls @ 50 mls/hr IV ASDIR [facility] Last Admin: 06/17/17 21:25 Dose: 50 mls/hr Magnesium Hydroxide (Milk Of Magnesia -) [address] [facility] Magnesium Oxide (Mag-Ox -) [address] [facility] Last Admin: 06/17/17 21:05 Dose: Not Given Mupirocin (Bactroban Ointment (For Decolonization) -) [address] [facility] Stop: 06/22/17 21:59 Last Admin: 06/17/17 21:04 Dose: 1 applic Polyethylene Glycol (Miralax (For Bowel Prep) -) [address] [facility] Last Admin: 06/17/17 21:05 Dose: Not Given Potassium Chloride (K-Dur -) [address] [facility] Senna/Docusate Sodium (Pericolace -) 1 tablet PO DAILY PRN PRN Reason: CONSTIPATION Silver Sulfadiazine (Silvadene -) [address] [facility] Microbiology 06/16/17 23:38 Blood - Peripheral Venous Blood Culture - Preliminary Pending Organism 06/16/17 23:38 Blood - Peripheral Venous Blood Culture - Preliminary Pending Organism Imaging - Results Chest X-ray: Report Reviewed (Vascular congestion, small pleural effusion possible RLL consolidation) Cat Scan: Report Reviewed (Chest and head) Ultrasound: Report Reviewed (Renal) Problem List - Problems (1) Altered mental status Code(s): R41.82 - ALTERED MENTAL STATUS, UNSPECIFIED Qualifiers: Altered mental status type: unspecified Qualified Code(s): R41.82 - Altered mental status, unspecified (2) Alzheimer disease Code(s): G30.9 - ALZHEIMER'S DISEASE, UNSPECIFIED Qualifiers: Alzheimer's disease onset: unspecified onset (3) CHF (congestive heart failure), NYHA class III Code(s): I50.9 - HEART FAILURE, UNSPECIFIED Qualifiers: Congestive heart failure type: combined Congestive heart failure chronicity : acute on chronic Qualified Code(s): I50.43 - Acute on chronic combined systolic (congestive) and diastolic (congestive) heart failure (4) Pneumonia Code(s): J18.9 - PNEUMONIA, UNSPECIFIED ORGANISM Qualifiers: Laterality: right Lung location: lower lobe of lung (5) UTI (urinary tract infection) Code(s): N39.0 - URINARY TRACT INFECTION, SITE NOT SPECIFIED Assessment/Plan 86yom with PMH HTN, HLD, hypokalemia, CAD, Alzheimer's, afib (on Pradaxa), CHF, gout, admitted to floor for treatment of a UTI, PNA and CHF exacerbation now transferred to ICU with hypotension 2/2 m/l urosepsis. BP fluid responsive. Now DNR Plan: CV/ID: Urosepsis -F/u cultures; blood culture with pending organism -Cont Zosyn for empiric coverage -Tailor antibiotics to results -Gentle IV fluid d/t CHF exacerbation -Hold antihypertensive d/t hypotension -Consider diuresis when BP stable -NC O2 support for O2sat>92% -Aspiration precaution -Strict I+o -regular reorientation -DVT proph Zaira Perea, KIERA CC time 35mins
--- NOTE | 2017-06-17 20:57 | PN ---
Progress Note (short form) - Note Progress Note: Sotalol d/c'd as GFR is <40 and is contraindicated if GFR <40. Reassess GFR in AM and consider restarting if kidney function improves as pt currently has OCHOA.
[2017-06-17] MEDS: MUPIROCIN 2% TOPICAL OINTMENT FOR DECOLONIZATION NS SCH (21:04)
[2017-06-17] MEDS: DABIGATRAN ETEXILATE MESYLATE 150 MG CAPSULE PO SCH (21:05)
[2017-06-17] MEDS: MAGNESIUM OXIDE 400 MG TABLET (FP) PO SCH (21:05)
[2017-06-17] MEDS: POLYETHYLENE GLYCOL 3350 255 GM BTL PO SCH (21:05)
[2017-06-17] MEDS ORDERED: ATORVASTATIN CA 20 MG TABLET (FP) PO SCH ×2 (22:00)
[2017-06-17] MEDS ORDERED: CHLORHEXIDINE GLUCONATE 4% CLEANSER FOR DECOLONIZATION TP SCH (22:00)
[2017-06-17] MEDS ORDERED: OLANZapine 2.5 MG TABLET PO SCH (22:00)
[2017-06-18] MEDS: PIPERACILLIN/TAZOB 3.375 GM 3.375 GM in DEXTROSE 5%-WATER - 100 ML IVPB SCH ×4 (03:18→21:37)
[2017-06-18 06:25] LABS: BASO % 0.1 % (0-2.0); EOS % 0.1 % (0-4.5); HEMATOCRIT 35.2 % (35.4-49); HEMOGLOBIN 11.5 GM/dL (11.7-16.9); LYMPH % 3.5 % (8-40); MCH 29.3 pg (25.7-33.7); MCHC 32.6 g/dl (32.0-35.9); MEAN CELL VOLUME 89.9 fl (80-96); MEAN PLT VOLUME 8.2 fl (7.5-11.1); MONO % 6.2 % (3.8-10.2); NEUT % 90.1 % (42.8-82.8); PLATELET COUNT 134 K/MM3 (134-434); RBC 3.91 M/mm3 (4.00-5.60); RDW 15.7 % (11.9-15.9); WHITE BLOOD COUNT 8.5 K/mm3 (4.0-10.0)
--- NOTE | 2017-06-18 08:10 | PN ---
Progress Note, Physician Chief Complaint: ID Zosyn day 1 therapy for sepsis Discussed with nursing re hypotension and fluid replacement Low grade temp over night Now hypothermic - Current Medication List Current Medications: Active Medications Atorvastatin Calcium (Lipitor -) 20 mg PO HS [facility] Last Admin: 06/17/17 21:05 Dose: Not Given Chlorhexidine Gluconate (Hibiclens For Decolonization -) 1 applic TP HS [facility] Last Admin: 06/17/17 22:48 Dose: 1 applic Cholecalciferol (Vitamin D3 -) 1,000 unit PO DAILY [facility] Colchicine (Colcrys -) 0.6 mg PO DAILY [facility] Dabigatran (Pradaxa -) 150 mg PO BID [facility] Last Admin: 06/17/17 21:05 Dose: Not Given Docusate Sodium (Colace -) 100 mg PO DAILY [facility] Donepezil HCl (Aricept -) 5 mg PO HS [facility] Folic Acid (Folic Acid -) 1 mg PO DAILY [facility] Furosemide (Lasix Injection -) 20 mg IVPUSH DAILY [facility] Piperacillin Sod/Tazobactam (Sod 3.375 gm/ Dextrose) 100 mls @ 200 mls/hr IVPB Q6H-IV [facility] Last Admin: 06/18/17 03:18 Dose: 200 mls/hr Sodium Chloride (Normal Saline -) 1,000 mls @ 50 mls/hr IV ASDIR [facility] Last Admin: 06/17/17 21:25 Dose: 50 mls/hr Magnesium Hydroxide (Milk Of Magnesia -) 30 ml PO DAILY [facility] Magnesium Oxide (Mag-Ox -) 400 mg PO BID [facility] Last Admin: 06/17/17 21:05 Dose: Not Given Mupirocin (Bactroban Ointment (For Decolonization) -) 1 applic NS BID [facility] Stop: 06/22/17 21:59 Last Admin: 06/17/17 21:04 Dose: 1 applic Polyethylene Glycol (Miralax (For Bowel Prep) -) 17 gm PO BID [facility] Last Admin: 06/17/17 21:05 Dose: Not Given Potassium Chloride (K-Dur -) 20 meq PO DAILY [facility] Senna/Docusate Sodium (Pericolace -) 1 tablet PO DAILY PRN PRN Reason: CONSTIPATION Silver Sulfadiazine (Silvadene -) 1 applic TP DAILY [facility] - Objective Vital Signs: Vital Signs Temperature 96.9 F L 06/18/17 06:00 Pulse Rate 59 L 06/18/17 06:00 Respiratory Rate 20 06/18/17 06:00 Blood Pressure 101/57 06/18/17 06:00 O2 Sat by Pulse Oximetry (%) 100 06/17/17 21:00 Cardiovascular: Yes: Regular Rate and Rhythm, S1, S2. No: Murmur Respiratory: Yes: WNL, Regular, CTA Bilaterally Gastrointestinal: Yes: Soft. No: Tenderness Edema: No Labs: CBC, BMP 06/18/17 06:00 INR, PTT INR 1.71 (0.82-1.09) H D 06/16/17 23:38 Problem List - Problems (1) Gram-negative bacteremia Code(s): R78.81 - BACTEREMIA (2) Sepsis Code(s): A41.9 - SEPSIS, UNSPECIFIED ORGANISM (3) UTI (urinary tract infection) Code(s): N39.0 - URINARY TRACT INFECTION, SITE NOT SPECIFIED Assessment/Plan Microbiology 06/16/17 23:38 Blood - Peripheral Venous Blood Culture - Preliminary Pending Organism 06/16/17 23:38 Blood - Peripheral Venous Blood Culture - Preliminary Pending Organism Laboratory Tests 06/17/17 06/17/17 06/18/17 02:20 14:30 06:00 WBC 8.5 Hgb 11.5 L Hct 35.2 L Plt Count 134 BUN 33 H D Creatinine 1.7 H D Ur Leukocyte Esterase 1+ H Urine WBC (Auto) 368 Urine RBC (Auto) 69 Assessment Severe dementia complicating sepsis syndrome with gram negative jodi bacteremia urinary source Right pleural effusion with possible RLL pneumonia Plan Continue Pip Tazo pending final cultures Lynn GONCALVES
--- NOTE | 2017-06-18 08:12 | PN ---
Progress Note, Physician Chief Complaint: febrile and hypotensive yesterday afternoon Transferred to ICU Blood cultures: gram - Bacilli TELE: Frequent VPCs, couplets occasional short self limited 3 beat runs NSVT History of Present Illness: much more alert today, conversive; answering questions - Current Medication List Current Medications: Active Medications Atorvastatin Calcium (Lipitor -) 20 mg PO HS [facility] Last Admin: 06/17/17 21:05 Dose: Not Given Chlorhexidine Gluconate (Hibiclens For Decolonization -) 1 applic TP HS [facility] Last Admin: 06/17/17 22:48 Dose: 1 applic Cholecalciferol (Vitamin D3 -) 1,000 unit PO DAILY [facility] Colchicine (Colcrys -) 0.6 mg PO DAILY [facility] Dabigatran (Pradaxa -) 150 mg PO BID [facility] Last Admin: 06/17/17 21:05 Dose: Not Given Docusate Sodium (Colace -) 100 mg PO DAILY [facility] Donepezil HCl (Aricept -) 5 mg PO HS [facility] Folic Acid (Folic Acid -) 1 mg PO DAILY [facility] Furosemide (Lasix Injection -) 20 mg IVPUSH DAILY [facility] Piperacillin Sod/Tazobactam (Sod 3.375 gm/ Dextrose) 100 mls @ 200 mls/hr IVPB Q6H-IV [facility] Last Admin: 06/18/17 03:18 Dose: 200 mls/hr Sodium Chloride (Normal Saline -) 1,000 mls @ 50 mls/hr IV ASDIR [facility] Last Admin: 06/17/17 21:25 Dose: 50 mls/hr Magnesium Hydroxide (Milk Of Magnesia -) 30 ml PO DAILY [facility] Magnesium Oxide (Mag-Ox -) 400 mg PO BID [facility] Last Admin: 06/17/17 21:05 Dose: Not Given Mupirocin (Bactroban Ointment (For Decolonization) -) 1 applic NS BID [facility] Stop: 06/22/17 21:59 Last Admin: 06/17/17 21:04 Dose: 1 applic Polyethylene Glycol (Miralax (For Bowel Prep) -) 17 gm PO BID [facility] Last Admin: 06/17/17 21:05 Dose: Not Given Potassium Chloride (K-Dur -) 20 meq PO DAILY [facility] Senna/Docusate Sodium (Pericolace -) 1 tablet PO DAILY PRN PRN Reason: CONSTIPATION Silver Sulfadiazine (Silvadene -) 1 applic TP DAILY [facility] - Objective Vital Signs: Vital Signs Temperature 96.9 F L 06/18/17 06:00 Pulse Rate 59 L 06/18/17 06:00 Respiratory Rate 20 06/18/17 06:00 Blood Pressure 101/57 06/18/17 06:00 O2 Sat by Pulse Oximetry (%) 100 06/17/17 21:00 Constitutional: Yes: No Distress Eyes: Yes: Conjunctiva Clear Cardiovascular: Yes: Pulse Irregular Respiratory: Yes: Other (decreased breath sounds at bases, no wheezing) Gastrointestinal: Yes: Soft Edema: Yes Edema: LLE: 1+, RLE: 1+ Neurological: Yes: Alert Labs: CBC, BMP 06/18/17 06:00 INR, PTT INR 1.71 (0.82-1.09) H D 06/16/17 23:38 Microbiology 06/16/17 23:38 Blood - Peripheral Venous Blood Culture - Preliminary Pending Organism 06/16/17 23:38 Blood - Peripheral Venous Blood Culture - Preliminary Pending Organism Laboratory Tests 06/18/17 06/18/17 06:00 06:00 WBC 8.5 Hgb 11.5 L Plt Count 134 Sodium Pending Potassium Pending BUN Pending Creatinine Pending Magnesium Pending - ....Imaging Chest X-ray: Image Reviewed (Small b/l effusions, increased PVC, possible RLL infiltrate) EKG: Image Reviewed Problem List - Problems (1) Failure to thrive in adult Code(s): R62.7 - ADULT FAILURE TO THRIVE (2) Fever Code(s): R50.9 - FEVER, UNSPECIFIED Qualifiers: Fever type: due to other condition Qualified Code(s): R50.81 - Fever presenting with conditions classified elsewhere (3) Cellulitis Code(s): L03.90 - CELLULITIS, UNSPECIFIED Qualifiers: Site of cellulitis of extremity: upper extremity Laterality: right (4) Altered mental status Code(s): R41.82 - ALTERED MENTAL STATUS, UNSPECIFIED Qualifiers: Altered mental status type: unspecified Qualified Code(s): R41.82 - Altered mental status, unspecified (5) CHF (congestive heart failure) Code(s): I50.9 - HEART FAILURE, UNSPECIFIED Qualifiers: Congestive heart failure type: unspecified congestive heart failure type Congestive heart failure chronicity: unspecified congestive heart failure chronicity Qualified Code(s): I50.9 - Heart failure, unspecified (6) ICD (implantable cardioverter-defibrillator) in place Code(s): Z95.810 - PRESENCE OF AUTOMATIC (IMPLANTABLE) CARDIAC DEFIBRILLATOR (7) Afib Code(s): I48.91 - UNSPECIFIED ATRIAL FIBRILLATION Qualifiers: Atrial fibrillation type: paroxysmal Qualified Code(s): I48.0 - Paroxysmal atrial fibrillation (8) Alzheimer disease Code(s): G30.9 - ALZHEIMER'S DISEASE, UNSPECIFIED Qualifiers: Alzheimer's disease onset: unspecified onset Assessment/Plan Problem List - Problems (1) Failure to thrive in adult Assessment/Plan: -fever and gram - bacteremia. ?Urine source -follow cultures, abx as per PMD Code(s): R62.7 - ADULT FAILURE TO THRIVE (2) Fever Assessment/Plan: -As above, follow cultures; abx as per PMD. Now on Zosyn Code(s): R50.9 - FEVER, UNSPECIFIED Qualifiers: Fever type: due to other condition Qualified Code(s): R50.81 - Fever presenting with conditions classified elsewhere (3) Altered mental status Assessment/Plan: -likely due to infection, plan as above for possible sources Code(s): R41.82 - ALTERED MENTAL STATUS, UNSPECIFIED Qualifiers: Altered mental status type: unspecified Qualified Code(s): R41.82 - Altered mental status, unspecified (4) CHF (congestive heart failure) Assessment/Plan: -mild acute on chronic systolic -Continue IV Lasix. Difficult to titrate further due to hypotension. Code(s): I50.9 - HEART FAILURE, UNSPECIFIED Qualifiers: Congestive heart failure type: unspecified congestive heart failure type Congestive heart failure chronicity: unspecified congestive heart failure chronicity Qualified Code(s): I50.9 - Heart failure, unspecified (5) ICD (implantable cardioverter-defibrillator) in place Assessment/Plan: -Secondary to ischemic CM, h/o VT documented -Now having frequent V ectopy -Keep K+ >4, Mg 2+ >2 -Resume Sotalol Code(s): Z95.810 - PRESENCE OF AUTOMATIC (IMPLANTABLE) CARDIAC DEFIBRILLATOR (6) Afib Assessment/Plan: -Continue Pradaxa Code(s): I48.91 - UNSPECIFIED ATRIAL FIBRILLATION Qualifiers: Atrial fibrillation type: paroxysmal Qualified Code(s): I48.0 - Paroxysmal atrial fibrillation (7) Alzheimer disease Code(s): G30.9 - ALZHEIMER'S DISEASE, UNSPECIFIED Qualifiers: Alzheimer's disease onset: unspecified onset
[2017-06-18 08:40] LABS: ALBUMIN 2.2 g/dl (3.4-5.0); ANION GAP 10 (8-16); BLOOD UREA NITROGEN 36 mg/dL (7-18); CALCIUM 7.7 mg/dL (8.5-10.1); CHLORIDE 108 mmol/L (98-107); CO2 27 mmol/L (21-32); CREATININE 1.5 mg/dL (0.7-1.3); GLUCOSE,RANDOM 95 mg/dL (74-106); MAGNESIUM 2.3 mg/dL (1.8-2.4); POTASSIUM 3.5 mmol/L (3.5-5.1); SGOT/AST 79 U/L (15-37); SGPT/ALT 56 U/L (12-78); SODIUM 145 mmol/L (136-145)
[2017-06-18 08:42] LABS: ALK PHOS 86 U/L (45-117); BILIRUBIN,TOTAL 0.7 mg/dL (0.2-1.0)
--- NOTE | 2017-06-18 08:49 | PN ---
Progress Note, Physician Chief Complaint: feels better, moved to ICU, More awake but confused. Repid response yesterday-discussed with 2 daughters and . 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 HX of VT and AICD placement. Previously found to have A.fib on Holter by Dr. Jones and after last discharge the pt was re- started on Pradaxa PO. Significant weight loss over the last year-w/u negative. Constipation-recent hospitalization at [facility]-EGD/Colonoscopy done-found rectal ulcer. Diverticulosis, Possible bladder lesion and hematuria. Seen by urology during last hospitalization. Advised f/u as outpatient. Pressure ulcers. Gallstones. - Current Medication List Current Medications: Active Medications Atorvastatin Calcium (Lipitor -) 20 mg PO HS [facility] Last Admin: 06/17/17 21:05 Dose: Not Given Chlorhexidine Gluconate (Hibiclens For Decolonization -) 1 applic TP HS [facility] Last Admin: 06/17/17 22:48 Dose: 1 applic Cholecalciferol (Vitamin D3 -) 1,000 unit PO DAILY [facility] Colchicine (Colcrys -) 0.6 mg PO DAILY [facility] Dabigatran (Pradaxa -) 150 mg PO BID [facility] Last Admin: 06/17/17 21:05 Dose: Not Given Docusate Sodium (Colace -) 100 mg PO DAILY [facility] Donepezil HCl (Aricept -) 5 mg PO HS [facility] Folic Acid (Folic Acid -) 1 mg PO DAILY [facility] Furosemide (Lasix Injection -) 20 mg IVPUSH DAILY [facility] Piperacillin Sod/Tazobactam (Sod 3.375 gm/ Dextrose) 100 mls @ 200 mls/hr IVPB Q6H-IV [facility] Last Admin: 06/18/17 03:18 Dose: 200 mls/hr Sodium Chloride (Normal Saline -) 1,000 mls @ 50 mls/hr IV ASDIR [facility] Last Admin: 06/17/17 21:25 Dose: 50 mls/hr Magnesium Hydroxide (Milk Of Magnesia -) 30 ml PO DAILY [facility] Magnesium Oxide (Mag-Ox -) 400 mg PO BID [facility] Last Admin: 06/17/17 21:05 Dose: Not Given Mupirocin (Bactroban Ointment (For Decolonization) -) 1 applic NS BID [facility] Stop: 06/22/17 21:59 Last Admin: 1220/17 21:04 Dose: 1 applic Polyethylene Glycol (Miralax (For Bowel Prep) -) 17 gm PO BID [facility] Last Admin: 06/17/17 21:05 Dose: Not Given Potassium Chloride (K-Dur -) 20 meq PO DAILY [facility] Senna/Docusate Sodium (Pericolace -) 1 tablet PO DAILY PRN PRN Reason: CONSTIPATION Silver Sulfadiazine (Silvadene -) 1 applic TP DAILY [facility] Sotalol HCl (Betapace -) 40 mg PO BID [facility] - Objective Vital Signs: Vital Signs Temperature 96.9 F L 06/18/17 06:00 Pulse Rate 59 L 06/18/17 06:00 Respiratory Rate 20 06/18/17 06:00 Blood Pressure 101/57 06/18/17 06:00 O2 Sat by Pulse Oximetry (%) 100 06/17/17 21:00 Constitutional: Yes: No Distress Eyes: Yes: Conjunctiva Clear, EOM Intact HENT: Yes: Atraumatic, Normocephalic Neck: Yes: Supple Cardiovascular: Yes: Bradycardia, Pulse Irregular, Murmur, S1, S2. No: JVD Respiratory: Yes: On Nasal O2, Rales (Few B/B). No: Accessory Muscle Use, Intubated Gastrointestinal: Yes: Normal Bowel Sounds, Soft. No: Abdomen, Obese, Ascites, Palpable Mass ...Rectal Exam: Yes: Deferred Genitourinary: No: Anuria, Bladder Distention Breast(s): Yes: WNL Musculoskeletal: Yes: WNL Extremities: No: Calf Tenderness, Cold, Cyanosis Edema: No Peripheral Pulses WNL: No Integumentary: Yes: Other (shins, left heel, sacrum) Neurological: Yes: Confusion. No: Oriented Psychiatric: No: Oriented, Agitated, Suicidal Ideation Labs: CBC, BMP 06/18/17 06:00 06/18/17 06:00 INR, PTT INR 1.71 (0.82-1.09) H D 06/16/17 23:38 Laboratory Results - last 24 hr 06/17/17 06/17/17 06/17/17 02:20 13:55 14:06 WBC RBC Hgb Hct MCV MCH MCHC RDW Plt Count MPV Neutrophils % Neutrophils % (Manual) Band Neutrophils % Lymphocytes % Lymphocytes % (Manual) Monocytes % Monocytes % (Manual) Eosinophils % Eosinophils % (Manual) Basophils % Basophils % (Manual) Myelocytes % (Man) Metamyelocytes Hypochromia Platelet Estimate Polychromasia Anisocytosis Microcytosis Macrocytosis Puncture Site Right radial ABG pH 7.37 ABG pCO2 at Pt Temp 50.0 H ABG pO2 at Pt Temp 96.1 ABG HCO3 28.0 H ABG O2 Sat (Measured) 97.5 ABG O2 Content 14.9 L ABG Base Excess 2.5 H Tab Test Positive O2 Delivery Device Nasal canula Oxygen Flow Rate 4l Sodium Potassium Chloride Carbon Dioxide Anion Gap BUN Creatinine Creat Clearance w eGFR POC Glucometer 95 Random Glucose Lactic Acid Calcium Phosphorus Magnesium Total Bilirubin AST ALT Alkaline Phosphatase Total Protein Albumin Ur Leukocyte Esterase 1+ H 06/17/17 06/17/17 06/17/17 14:30 14:30 14:30 WBC 11.0 H D RBC 4.04 Hgb 11.4 L Hct 36.4 MCV 90.2 MCH 28.3 MCHC 31.3 L RDW 15.6 Plt Count 135 D MPV 7.7 Neutrophils % No Result Required. Neutrophils % (Manual) 79.2 Band Neutrophils % 15.8 Lymphocytes % No Result Required. Lymphocytes % (Manual) 1.0 L Monocytes % Monocytes % (Manual) 3 L Eosinophils % Eosinophils % (Manual) 0.0 Basophils % Basophils % (Manual) 0.0 Myelocytes % (Man) 1 Metamyelocytes 0 Hypochromia 0 Platelet Estimate Decreased Polychromasia 0 Anisocytosis 1+ Microcytosis 1+ Macrocytosis 0 Puncture Site ABG pH ABG pCO2 at Pt Temp ABG pO2 at Pt Temp ABG HCO3 ABG O2 Sat (Measured) ABG O2 Content ABG Base Excess Tab Test O2 Delivery Device Oxygen Flow Rate Sodium 142 Potassium 3.2 L Chloride 105 Carbon Dioxide 24 Anion Gap 13 BUN 33 H D Creatinine 1.7 H D Creat Clearance w eGFR 38.50 POC Glucometer Random Glucose 98 D Lactic Acid 1.8 Calcium 7.5 L Phosphorus Magnesium Total Bilirubin 0.5 D AST 77 H D ALT 53 D Alkaline Phosphatase 102 Total Protein 5.3 L Albumin 2.4 L Ur Leukocyte Esterase 06/18/17 06/18/17 06:00 06:00 WBC 8.5 RBC 3.91 L Hgb 11.5 L Hct 35.2 L MCV 89.9 MCH 29.3 MCHC 32.6 RDW 15.7 Plt Count 134 MPV 8.2 Neutrophils % 90.1 H Neutrophils % (Manual) Band Neutrophils % Lymphocytes % 3.5 L D Lymphocytes % (Manual) Monocytes % 6.2 Monocytes % (Manual) Eosinophils % 0.1 D Eosinophils % (Manual) Basophils % 0.1 Basophils % (Manual) Myelocytes % (Man) Metamyelocytes Hypochromia Platelet Estimate Polychromasia Anisocytosis Microcytosis Macrocytosis Puncture Site ABG pH ABG pCO2 at Pt Temp ABG pO2 at Pt Temp ABG HCO3 ABG O2 Sat (Measured) ABG O2 Content ABG Base Excess Tab Test O2 Delivery Device Oxygen Flow Rate Sodium 145 Potassium 3.5 Chloride 108 H Carbon Dioxide 27 Anion Gap 10 BUN 36 H Creatinine 1.5 H Creat Clearance w eGFR 44.48 POC Glucometer Random Glucose 95 Lactic Acid Calcium 7.7 L Phosphorus 4.0 D Magnesium 2.3 D Total Bilirubin 0.7 D AST 79 H ALT 56 Alkaline Phosphatase 86 Total Protein 5.0 L Albumin 2.2 L Ur Leukocyte Esterase Problem List - Problems (1) Altered mental status Assessment/Plan: R/o now effect of Lorazepam. Possible infectios process with toxic-metabolic encephalopathy superimposed on long standing dementia. Code(s): R41.82 - ALTERED MENTAL STATUS, UNSPECIFIED Qualifiers: Altered mental status type: unspecified Qualified Code(s): R41.82 - Altered mental status, unspecified (2) Pneumonia Assessment/Plan: CT c/w RLL infiltrate effusion, R/O PNA, r/o aspiration. IV ABX pulm consult. Hypotension now IV fluids. Code(s): J18.9 - PNEUMONIA, UNSPECIFIED ORGANISM Qualifiers: Laterality: right Lung location: lower lobe of lung (3) CHF (congestive heart failure), NYHA class III Assessment/Plan: Noted vascular congestion on CT chest. Cardiology consult appreciated. Follow volume status IV lasix, follow electrolytes. Code(s): I50.9 - HEART FAILURE, UNSPECIFIED Qualifiers: Congestive heart failure type: combined Congestive heart failure chronicity : acute on chronic Qualified Code(s): I50.43 - Acute on chronic combined systolic (congestive) and diastolic (congestive) heart failure (4) Afib Assessment/Plan: Continue Pradaxa PO Code(s): I48.91 - UNSPECIFIED ATRIAL FIBRILLATION Qualifiers: Atrial fibrillation type: paroxysmal Qualified Code(s): I48.0 - Paroxysmal atrial fibrillation (5) Sepsis associated hypotension Assessment/Plan: Gram negative sepsis Continue Zosyn IV Follow GNB ID Code(s): A41.9 - SEPSIS, UNSPECIFIED ORGANISM
[2017-06-18] MEDS ORDERED: MAGNESIUM HYDROX 2400MG/30ML ORAL SUSPENSION 30 ML CUP PO SCH (10:00)
[2017-06-18] MEDS ORDERED: SOTALOL HCL 80 MG TABLET (FP) PO SCH ×2 (10:00→22:00)
[2017-06-18] MEDS ORDERED: FUROSEMIDE 40 MG/4 ML INJECTABLE VIAL IVPUSH SCH (10:00)
[2017-06-18] MEDS ORDERED: DOCUSATE SODIUM 100 MG CAPSULE (FP) PO SCH (10:00)
[2017-06-18] MEDS ORDERED: FOLIC ACID 1 MG TABLET (FP) PO SCH (10:00)
[2017-06-18] MEDS ORDERED: SILVER SULFADIAZINE 1% TOP CREAM 50 GM JAR TP SCH (10:00)
[2017-06-18] MEDS ORDERED: COLCHICINE 0.6 MG TABLET (FP) PO SCH (10:00)
[2017-06-18] MEDS: MUPIROCIN 2% TOPICAL OINTMENT FOR DECOLONIZATION NS SCH ×2 (10:01→22:43)
[2017-06-18] MEDS: DABIGATRAN ETEXILATE MESYLATE 150 MG CAPSULE PO SCH ×2 (10:56→22:46)
--- NOTE | 2017-06-18 12:21 | PN ---
Physical Exam: SUBJECTIVE: Had a fever overnight which resolved after a dose of IV Tylenol. OBJECTIVE: Vital Signs Period Temp Pulse Resp BP Sys/Zhu Pulse Ox Last 24 Hr 96.3 F-100.5 F 52-98 20-28 77-126/39-66 97-100 GENERAL: The patient is awake, alert, but only oriented to person. Continuously asks/ states "What are you doing to me? What are these medications for? You are trying to kill me! Help!" HEAD: Normal with no signs of trauma. EYES: Keeps eyes mostly closed, so a good occular examination proved quite difficult. No ptosis. ENT: Ears normal, nares patent, oropharynx clear without exudates, moist mucous membranes. NECK: Trachea midline, full range of motion, supple. LUNGS: Unable to auscultate right lower lobe and lung sounds generally distant. No wheezes, no crackles, no accessory muscle use. HEART: Regular rate and rhythm, S1, S2 without murmur, rub or gallop. ABDOMEN: Soft, nontender, nondistended, normoactive bowel sounds, no guarding, no rebound, no hepatosplenomegaly, no masses. EXTREMITIES: 2+ pulses, warm, well-perfused, no edema. NEUROLOGICAL: Normal speech, gait not observed. PSYCH: Normal mood, normal affect. SKIN: Warm, dry, normal turgor, no rashes or lesions noted Laboratory Results - last 24 hr 06/17/17 06/17/17 06/17/17 13:55 14:06 14:30 WBC 11.0 H D RBC 4.04 Hgb 11.4 L Hct 36.4 MCV 90.2 MCH 28.3 MCHC 31.3 L RDW 15.6 Plt Count 135 D MPV 7.7 Neutrophils % No Result Required. Neutrophils % (Manual) 79.2 Band Neutrophils % 15.8 Lymphocytes % No Result Required. Lymphocytes % (Manual) 1.0 L Monocytes % Monocytes % (Manual) 3 L Eosinophils % Eosinophils % (Manual) 0.0 Basophils % Basophils % (Manual) 0.0 Myelocytes % (Man) 1 Metamyelocytes 0 Hypochromia 0 Platelet Estimate Decreased Polychromasia 0 Anisocytosis 1+ Microcytosis 1+ Macrocytosis 0 Puncture Site Right radial ABG pH 7.37 ABG pCO2 at Pt Temp 50.0 H ABG pO2 at Pt Temp 96.1 ABG HCO3 28.0 H ABG O2 Sat (Measured) 97.5 ABG O2 Content 14.9 L ABG Base Excess 2.5 H Tab Test Positive O2 Delivery Device Nasal canula Oxygen Flow Rate 4l Sodium Potassium Chloride Carbon Dioxide Anion Gap BUN Creatinine Creat Clearance w eGFR POC Glucometer 95 Random Glucose Lactic Acid Calcium Phosphorus Magnesium Total Bilirubin AST ALT Alkaline Phosphatase Total Protein Albumin 06/17/17 06/17/17 06/18/17 14:30 14:30 06:00 WBC 8.5 RBC 3.91 L Hgb 11.5 L Hct 35.2 L MCV 89.9 MCH 29.3 MCHC 32.6 RDW 15.7 Plt Count 134 MPV 8.2 Neutrophils % 90.1 H Neutrophils % (Manual) Band Neutrophils % Lymphocytes % 3.5 L D Lymphocytes % (Manual) Monocytes % 6.2 Monocytes % (Manual) Eosinophils % 0.1 D Eosinophils % (Manual) Basophils % 0.1 Basophils % (Manual) Myelocytes % (Man) Metamyelocytes Hypochromia Platelet Estimate Polychromasia Anisocytosis Microcytosis Macrocytosis Puncture Site ABG pH ABG pCO2 at Pt Temp ABG pO2 at Pt Temp ABG HCO3 ABG O2 Sat (Measured) ABG O2 Content ABG Base Excess Tab Test O2 Delivery Device Oxygen Flow Rate Sodium 142 Potassium 3.2 L Chloride 105 Carbon Dioxide 24 Anion Gap 13 BUN 33 H D Creatinine 1.7 H D Creat Clearance w eGFR 38.50 POC Glucometer Random Glucose 98 D Lactic Acid 1.8 Calcium 7.5 L Phosphorus Magnesium Total Bilirubin 0.5 D AST 77 H D ALT 53 D Alkaline Phosphatase 102 Total Protein 5.3 L Albumin 2.4 L 06/18/17 06:00 WBC RBC Hgb Hct MCV MCH MCHC RDW Plt Count MPV Neutrophils % Neutrophils % (Manual) Band Neutrophils % Lymphocytes % Lymphocytes % (Manual) Monocytes % Monocytes % (Manual) Eosinophils % Eosinophils % (Manual) Basophils % Basophils % (Manual) Myelocytes % (Man) Metamyelocytes Hypochromia Platelet Estimate Polychromasia Anisocytosis Microcytosis Macrocytosis Puncture Site ABG pH ABG pCO2 at Pt Temp ABG pO2 at Pt Temp ABG HCO3 ABG O2 Sat (Measured) ABG O2 Content ABG Base Excess Tab Test O2 Delivery Device Oxygen Flow Rate Sodium 145 Potassium 3.5 Chloride 108 H Carbon Dioxide 27 Anion Gap 10 BUN 36 H Creatinine 1.5 H Creat Clearance w eGFR 44.48 POC Glucometer Random Glucose 95 Lactic Acid Calcium 7.7 L Phosphorus 4.0 D Magnesium 2.3 D Total Bilirubin 0.7 D AST 79 H ALT 56 Alkaline Phosphatase 86 Total Protein 5.0 L Albumin 2.2 L Active Medications Generic Name Dose Route Start Last Admin Trade Name Freq PRN Reason Stop Dose Admin Atorvastatin Calcium 20 mg 06/17/17 22:00 06/17/17 21:05 Lipitor - PO Not Given HS [facility] Chlorhexidine Gluconate 1 applic 06/17/17 22:00 06/17/17 22:48 Hibiclens For Decolonization - TP 1 applic HS [facility] Administration Cholecalciferol 1,000 unit 06/18/17 10:00 Vitamin D3 - PO DAILY [facility] Colchicine 0.6 mg 06/18/17 10:00 06/18/17 10:55 Colcrys - PO 0.6 mg DAILY [facility] Administration Dabigatran 150 mg 06/17/17 22:00 06/18/17 10:56 Pradaxa - PO 150 mg BID [facility] Administration Docusate Sodium 100 mg 06/18/17 10:00 Colace - PO DAILY [facility] Donepezil HCl 5 mg 06/18/17 22:00 Aricept - PO [facility] Folic Acid 1 mg 06/18/17 10:00 06/18/17 10:55 Folic Acid - PO 1 mg DAILY [facility] Administration Furosemide 20 mg 06/18/17 10:00 06/18/17 10:01 Lasix Injection - IVPUSH 20 mg DAILY [facility] Administration Piperacillin Sod/Tazobactam 100 mls @ 200 mls/hr 06/17/17 16:00 06/18/17 09: 59 Sod 3.375 gm/ Dextrose IVPB 200 mls/hr Q6H-IV [facility] Administration Sodium Chloride 1,000 mls @ 50 mls/hr 06/17/17 21:01 06/17/17 21:25 Normal Saline - IV 50 mls/hr ASDIR [facility] Administration Magnesium Hydroxide 30 ml 06/18/17 10:00 Milk Of Magnesia - PO DAILY [facility] Magnesium Oxide 400 mg 06/17/17 22:00 06/17/17 21:05 Mag-Ox - PO Not Given BID [facility] Mupirocin 1 applic 06/17/17 22:00 06/18/17 10:01 Bactroban Ointment (For Decolonization) - NS 06/22/17 21:59 1 applic BID [facility] Administration Polyethylene Glycol 17 gm 06/17/17 22:00 06/17/17 21:05 Miralax (For Bowel Prep) - PO Not Given BID [facility] Potassium Chloride 20 meq 06/18/17 10:00 K-Dur - PO DAILY [facility] Senna/Docusate Sodium 1 tablet 06/17/17 19:18 Pericolace - PO DAILY PRN CONSTIPATION Silver Sulfadiazine 1 applic 06/18/17 10:00 Silvadene - TP DAILY [facility] Sotalol HCl 40 mg 06/18/17 10:00 06/18/17 10:54 Betapace - PO 40 mg BID [facility] Administration ASSESSMENT/PLAN: 86yom with PMH HTN, HLD, hypokalemia, CAD, Alzheimer's, afib (on Pradaxa), CHF, gout, admitted to floor for treatment of a UTI, PNA and CHF exacerbation now transferred to ICU with hypotension 2/2 m/l urosepsis. BP fluid responsive. Now DNR Plan: Neuro: - Appears to be at his baseline of dimentia - Can consider starting olanzapine once QTC is <500, currently 520 - Can use Ativan for now very low dose 0.25 IV. CV: #CHF: - Lasix #Afib: -Pradaxa -Sotalol Pulm: -PNA treatmetn per below - Current on NC 1.5 L SATing 100% ID: #UTI: GNB in urine - continue Zosyn - follow up speciation #PNA: R basilar consolidation - continue Zosyn FEN: - Will stop fluids - start on PO or tube feeds if not tolerating - repletion PRN Prophy: -Pradaxa Dispo: - Safe for discharge to tele Visit type - Emergency Visit Emergency Visit: No - New Patient This patient is new to me today: No - Critical Care Critical Care patient: No - Discharge Referral Referred to [facility] Med P.C.: No
--- NOTE | 2017-06-18 13:34 | PN ---
Teaching Attending Note Name of Resident: Marylu Everett ATTENDING PHYSICIAN STATEMENT I saw and evaluated the patient. I reviewed the resident's note and discussed the case with the resident. I agree with the resident's findings and plan as documented. SUBJECTIVE: Pt seen and examined in the ICU. Denies shortness of breath or chest pain. Blood pressure improving. OBJECTIVE: Last Vital Signs Temp Pulse Resp BP Pulse Ox 97.9 F 78 28 H 113/69 97 06/18/17 10:00 06/18/17 12:00 06/18/17 12:00 06/18/17 12:00 06/18/17 10:40 Intake & Output 06/15/17 06/16/17 06/17/17 06/18/17 23:59 23:59 23:59 23:59 Intake Total 2530 450 Balance 2530 450 Weight 72.575 kg 76.204 kg 76.714 kg Gen: NAD at rest, confused Heart: irregular Lung: decreased breath sounds at the bases Abd: soft, nontender Ext: no edema CBC, BMP 06/18/17 06:00 06/18/17 06:00 Active Medications Atorvastatin Calcium (Lipitor -) 20 mg PO HS [facility] Last Admin: 06/17/17 21:05 Dose: Not Given Chlorhexidine Gluconate (Hibiclens For Decolonization -) 1 applic TP HS [facility] Last Admin: 06/17/17 22:48 Dose: 1 applic Cholecalciferol (Vitamin D3 -) 1,000 unit PO DAILY [facility] Colchicine (Colcrys -) 0.6 mg PO DAILY [facility] Last Admin: 06/18/17 10:55 Dose: 0.6 mg Dabigatran (Pradaxa -) 150 mg PO BID [facility] Last Admin: 06/18/17 10:56 Dose: 150 mg Docusate Sodium (Colace -) 100 mg PO DAILY [facility] Donepezil HCl (Aricept -) 5 mg PO HS [facility] Folic Acid (Folic Acid -) 1 mg PO DAILY [facility] Last Admin: 06/18/17 10:55 Dose: 1 mg Furosemide (Lasix Injection -) 20 mg IVPUSH DAILY [facility] Last Admin: 06/18/17 10:01 Dose: 20 mg Piperacillin Sod/Tazobactam (Sod 3.375 gm/ Dextrose) 100 mls @ 200 mls/hr IVPB Q6H-IV [facility] Last Admin: 06/18/17 09:59 Dose: 200 mls/hr Magnesium Hydroxide (Milk Of Magnesia -) 30 ml PO DAILY [facility] Magnesium Oxide (Mag-Ox -) 400 mg PO BID [facility] Last Admin: 06/17/17 21:05 Dose: Not Given Mupirocin (Bactroban Ointment (For Decolonization) -) 1 applic NS BID [facility] Stop: 06/22/17 21:59 Last Admin: 06/18/17 10:01 Dose: 1 applic Polyethylene Glycol (Miralax (For Bowel Prep) -) 17 gm PO BID [facility] Last Admin: 06/17/17 21:05 Dose: Not Given Potassium Chloride (K-Dur -) 20 meq PO DAILY [facility] Senna/Docusate Sodium (Pericolace -) 1 tablet PO DAILY PRN PRN Reason: CONSTIPATION Silver Sulfadiazine (Silvadene -) 1 applic TP DAILY [facility] Sotalol HCl (Betapace -) 40 mg PO BID [facility] Last Admin: 06/18/17 10:54 Dose: 40 mg ASSESSMENT AND PLAN: UTI Gram Negative Bacteremia Severe Sepsis Acute Kidney Injury Atrial Fibrillation Severe LV Systolic Dysfunction Mitral Regurgitation Pulmonary HTN CAD Dementia - continue antibiotics - f/u cultures - IV boluses as needed - monitor urine output, creatinine - O2 to keep SpO2 >90% - rate controlled - continue anticoagulation - can monitor on telemetry critical care time spent in reviewing chart, evaluating patient and formulating plan 35min
[2017-06-18] MEDS: POLYETHYLENE GLYCOL 3350 255 GM BTL PO SCH (15:40)
[2017-06-18] MEDS: CHOLECALCIFEROL (VITAMIN D3) 1,000 UNIT TABLET (FP) PO SCH ×2 (15:40→16:13)
[2017-06-18] MEDS: POTASSIUM CHLORIDE TABS 20 MEQ TABLET.ER (FP) PO SCH ×2 (15:41→16:13)
[2017-06-18] MEDS: MAGNESIUM OXIDE 400 MG TABLET (FP) PO SCH ×3 (15:41→22:46)
--- NOTE | 2017-06-18 16:30 | EKG ---
Test Reason : Blood Pressure : / mmHG Vent. Rate : 075 BPM Atrial Rate : 054 BPM P-R Int : 000 ms QRS Dur : 120 ms QT Int : 472 ms P-R-T Axes : 000 -22 091 degrees QTc Int : 527 ms ATRIAL FIBRILLATION WITH PREMATURE VENTRICULAR OR ABERRANTLY CONDUCTED COMPLEXES NON-SPECIFIC INTRA-VENTRICULAR CONDUCTION DELAY ABNORMAL ECG WHEN COMPARED WITH ECG OF 17-JUN-2017 14:16, NO SIGNIFICANT CHANGE WAS FOUND Confirmed by CT GONCALVES, CORINA ([id number]) on 06/18/2017 4:30:09 PM Referred By: Confirmed By:CORINA FOFANA MD
--- NOTE | 2017-06-18 16:30 | EKG ---
Test Reason : Blood Pressure : / mmHG Vent. Rate : 053 BPM Atrial Rate : 220 BPM P-R Int : 000 ms QRS Dur : 122 ms QT Int : 564 ms P-R-T Axes : 000 -26 -42 degrees QTc Int : 529 ms ATRIAL FIBRILLATION WITH SLOW VENTRICULAR RESPONSE WITH PREMATURE VENTRICULAR OR ABERRANTLY CONDUCTED COMPLEXES INFERIOR INFARCT , AGE UNDETERMINED ABNORMAL ECG WHEN COMPARED WITH ECG OF 17-JUN-2017 09:46, QT HAS SHORTENED Confirmed by CT GONCALVES, CORINA ([id number]) on 06/18/2017 4:30:45 PM Referred By: DAHLIA BENITEZ Confirmed By:CORINA FOFANA MD
[2017-06-18] MEDS ORDERED: SENNOSIDES/DOCUSATE COMBO (SENNA PLUS) TABLET (UD) PO PRN (17:32)
[2017-06-18] MEDS ORDERED: OLANZapine 2.5 MG TABLET PO SCH (22:00)
[2017-06-18] MEDS ORDERED: DONEPEZIL HCL 5 MG TABLET (FP) PO SCH (22:00)
[2017-06-18] MEDS: DONEPEZIL HCL 5 MG TABLET (FP) PO SCH (22:43)
[2017-06-18] MEDS: POLYETHYLENE GLYCOL 3350 119 GM BTL PO SCH (22:46)
[2017-06-18] MEDS: ATORVASTATIN CA 20 MG TABLET (FP) PO SCH (22:46)
[2017-06-19] MEDS: PIPERACILLIN/TAZOB 3.375 GM 3.375 GM in DEXTROSE 5%-WATER - 100 ML IVPB SCH ×4 (03:33→22:17)
[2017-06-19 06:46] LABS: BASO % 0.3 % (0-2.0); EOS % 0.5 % (0-4.5); HEMATOCRIT 36.1 % (35.4-49); LYMPH % 4.5 % (8-40); MCH 29.6 pg (25.7-33.7); MCHC 33.2 g/dl (32.0-35.9); MEAN CELL VOLUME 89.1 fl (80-96); MEAN PLT VOLUME 8.1 fl (7.5-11.1); MONO % 7.9 % (3.8-10.2); NEUT % 86.8 % (42.8-82.8); PLATELET COUNT 150 K/MM3 (134-434); RBC 4.05 M/mm3 (4.00-5.60); WHITE BLOOD COUNT 6.4 K/mm3 (4.0-10.0)
[2017-06-19 07:07] LABS: CHLORIDE 104 mmol/L (98-107); POTASSIUM 3.1 mmol/L (3.5-5.1); SODIUM 144 mmol/L (136-145)
[2017-06-19 07:14] LABS: ALBUMIN 2.1 g/dl (3.4-5.0); ALK PHOS 90 U/L (45-117); ANION GAP 7 (8-16); BILIRUBIN,TOTAL 0.6 mg/dL (0.2-1.0); BLOOD UREA NITROGEN 31 mg/dL (7-18); CALCIUM 7.9 mg/dL (8.5-10.1); CO2 33 mmol/L (21-32); CREATININE 1.2 mg/dL (0.7-1.3); GLUCOSE,RANDOM 97 mg/dL (74-106); SGOT/AST 57 U/L (15-37); SGPT/ALT 53 U/L (12-78); TOT PROT 4.9 g/dl (6.4-8.2)
--- NOTE | 2017-06-19 07:28 | PN ---
Progress Note, Physician Chief Complaint: ID Had an uneventful night and appears well Up for transfer Zosyn day 2 GNB bacteremia - Current Medication List Current Medications: Active Medications Atorvastatin Calcium (Lipitor -) 20 mg PO HS [facility] Last Admin: 06/18/17 22:46 Dose: 20 mg Cholecalciferol (Vitamin D3 -) 1,000 unit PO DAILY [facility] Colchicine (Colcrys -) 0.6 mg PO DAILY [facility] Dabigatran (Pradaxa -) 150 mg PO BID [facility] Last Admin: 06/18/17 22:46 Dose: 150 mg Docusate Sodium (Colace -) 100 mg PO DAILY [facility] Donepezil HCl (Aricept -) 5 mg PO HS [facility] Last Admin: 06/18/17 22:43 Dose: 5 mg Folic Acid (Folic Acid -) 1 mg PO DAILY [facility] Furosemide (Lasix Injection -) 20 mg IVPUSH DAILY [facility] Piperacillin Sod/Tazobactam (Sod 3.375 gm/ Dextrose) 100 mls @ 200 mls/hr IVPB Q6H-IV [facility] Last Admin: 06/19/17 03:33 Dose: 200 mls/hr Magnesium Hydroxide (Milk Of Magnesia -) 30 ml PO DAILY [facility] Magnesium Oxide (Mag-Ox -) 400 mg PO BID [facility] Last Admin: 06/18/17 22:46 Dose: 400 mg Mupirocin (Bactroban Ointment (For Decolonization) -) 1 applic NS BID [facility] Stop: 06/22/17 21:59 Last Admin: 06/18/17 22:43 Dose: 1 applic Polyethylene Glycol (Miralax (For Daily Use) -) 17 gm PO BID [facility] Last Admin: 06/18/17 22:46 Dose: Not Given Potassium Chloride (K-Dur -) 20 meq PO DAILY [facility] Senna/Docusate Sodium (Pericolace -) 1 tablet PO DAILY PRN PRN Reason: CONSTIPATION Silver Sulfadiazine (Silvadene -) 1 applic TP DAILY [facility] Sotalol HCl (Betapace -) 40 mg PO DAILY [facility] - Objective Vital Signs: Vital Signs Temperature 98.1 F 06/19/17 06:00 Pulse Rate 63 06/19/17 06:00 Respiratory Rate 20 06/19/17 06:00 Blood Pressure 110/53 06/19/17 06:00 O2 Sat by Pulse Oximetry (%) 100 06/19/17 06:00 Constitutional: Yes: No Distress Neck: Yes: WNL, Supple Cardiovascular: Yes: Pulse Irregular, S1, S2 Respiratory: Yes: WNL, Regular, CTA Bilaterally Gastrointestinal: Yes: WNL, Normal Bowel Sounds, Soft. No: Tenderness Edema: No Labs: INR, PTT INR 1.71 (0.82-1.09) H D 06/16/17 23:38 Problem List - Problems (1) Gram-negative bacteremia Code(s): R78.81 - BACTEREMIA (2) Sepsis Code(s): A41.9 - SEPSIS, UNSPECIFIED ORGANISM (3) UTI (urinary tract infection) Code(s): N39.0 - URINARY TRACT INFECTION, SITE NOT SPECIFIED Assessment/Plan Microbiology 06/17/17 02:20 Urine - Urine Clean Catch Urine Culture - Preliminary Lactose Fermenting Neg Bacilli 06/16/17 23:38 Blood - Peripheral Venous Blood Culture - Preliminary Lactose Fermenting Neg Bacilli 06/16/17 23:38 Blood - Peripheral Venous Blood Culture - Preliminary Lactose Fermenting Neg Bacilli Laboratory Tests 06/18/17 06/18/17 06/19/17 06:00 06:00 06:20 WBC 8.5 Pending Hgb 11.5 L Pending Hct 35.2 L Pending BUN 36 H Creatinine 1.5 H Creat Clearance w eGFR 44.48 Assessment Sepsis syndrome UTI with GNB bacteremia ICD device Atrial fibrillation Pradaxa Plan Stable now for transfer. Pending final culture continue current therapy PIP TAZO then deescalate if possible Lynn GONCALVES
--- NOTE | 2017-06-19 08:11 | PN ---
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 Previously found to have A.fib on Holter by Dr. Jones and after last discharge the pt was re- started on Pradaxa PO. Significant weight loss over the last year-w/u negative. Constipation-recent hospitalization at [facility]-EGD/Colonoscopy done-found rectal ulcer. Diverticulosis, Possible bladder lesion and hematuria. Seen by urology during last hospitalization. Advised f/u as outpatient. Pressure ulcers. Gallstones. - Current Medication List Current Medications: Active Medications Atorvastatin Calcium (Lipitor -) 20 mg PO HS [facility] Last Admin: 06/18/17 22:46 Dose: 20 mg Cholecalciferol (Vitamin D3 -) 1,000 unit PO DAILY [facility] Colchicine (Colcrys -) 0.6 mg PO DAILY [facility] Dabigatran (Pradaxa -) 150 mg PO BID [facility] Last Admin: 06/18/17 22:46 Dose: 150 mg Docusate Sodium (Colace -) 100 mg PO DAILY [facility] Donepezil HCl (Aricept -) 5 mg PO HS [facility] Last Admin: 06/18/17 22:43 Dose: 5 mg Folic Acid (Folic Acid -) 1 mg PO DAILY [facility] Furosemide (Lasix Injection -) 20 mg IVPUSH DAILY [facility] Piperacillin Sod/Tazobactam (Sod 3.375 gm/ Dextrose) 100 mls @ 200 mls/hr IVPB Q6H-IV [facility] Last Admin: 06/19/17 03:33 Dose: 200 mls/hr Magnesium Hydroxide (Milk Of Magnesia -) 30 ml PO DAILY [facility] Magnesium Oxide (Mag-Ox -) 400 mg PO BID [facility] Last Admin: 06/18/17 22:46 Dose: 400 mg Mupirocin (Bactroban Ointment (For Decolonization) -) 1 applic NS BID [facility] Stop: 06/22/17 21:59 Last Admin: 06/18/17 22:43 Dose: 1 applic Polyethylene Glycol (Miralax (For Daily Use) -) 17 gm PO BID [facility] Last Admin: 06/18/17 22:46 Dose: Not Given Potassium Chloride (K-Dur -) 20 meq PO DAILY [facility] Senna/Docusate Sodium (Pericolace -) 1 tablet PO DAILY PRN PRN Reason: CONSTIPATION Silver Sulfadiazine (Silvadene -) 1 applic TP DAILY [facility] Sotalol HCl (Betapace -) 40 mg PO DAILY [facility] - Objective Vital Signs: Vital Signs Temperature 98.1 F 06/19/17 06:00 Pulse Rate 63 06/19/17 06:00 Respiratory Rate 20 06/19/17 06:00 Blood Pressure 110/53 06/19/17 06:00 O2 Sat by Pulse Oximetry (%) 100 06/19/17 06:00 Constitutional: Yes: No Distress, Calm, Pallor. No: Obese Eyes: Yes: Conjunctiva Clear, EOM Intact HENT: Yes: Atraumatic, Normocephalic. No: Drooling Neck: Yes: Supple, Trachea Midline. No: Decreased ROM, Lymphadenopathy, Rigid, Tenderness Cardiovascular: Yes: Bradycardia, Pulse Irregular, S1, S2. No: JVD Respiratory: Yes: Regular, CTA Bilaterally Gastrointestinal: Yes: Normal Bowel Sounds, Soft. No: Abdomen, Obese, Ascites ...Rectal Exam: Yes: Deferred Genitourinary: No: Anuria, Bladder Distention Breast(s): Yes: WNL Musculoskeletal: Yes: Muscle Weakness Extremities: No: Calf Tenderness, Cold, Cyanosis Integumentary: Yes: Other (Pressure ulcers sacral) Neurological: Yes: Alert. No: Oriented, Aphasia, Dysarthria ...Motor Strength: WNL Psychiatric: Yes: Alert. No: Agitated, Suicidal Ideation Labs: CBC, BMP 06/19/17 06:20 INR, PTT INR 1.71 (0.82-1.09) H D 06/16/17 23:38 Problem List - Problems (1) Altered mental status Assessment/Plan: Dementia with toxic-metabolic encephalopathy. Improved. Will need SNF placement Code(s): R41.82 - ALTERED MENTAL STATUS, UNSPECIFIED Qualifiers: Altered mental status type: unspecified Qualified Code(s): R41.82 - Altered mental status, unspecified (2) Pneumonia Assessment/Plan: CT c/w RLL infiltrate effusion, R/O PNA, r/o aspiration. IV ABX pulm consult. Hypotension now IV fluids. Code(s): J18.9 - PNEUMONIA, UNSPECIFIED ORGANISM Qualifiers: Pneumonia type: due to unspecified organism Laterality: right Lung location: lower lobe of lung Qualified Code(s): J18.1 - Lobar pneumonia, unspecified organism (3) CHF (congestive heart failure), NYHA class III Assessment/Plan: Noted vascular congestion on CT chest. Cardiology consult appreciated. Follow volume status IV lasix, follow electrolytes. Code(s): I50.9 - HEART FAILURE, UNSPECIFIED Qualifiers: Congestive heart failure type: combined Congestive heart failure chronicity : acute on chronic Qualified Code(s): I50.43 - Acute on chronic combined systolic (congestive) and diastolic (congestive) heart failure (4) Afib Assessment/Plan: Continue Pradaxa PO Code(s): I48.91 - UNSPECIFIED ATRIAL FIBRILLATION Qualifiers: Atrial fibrillation type: paroxysmal Qualified Code(s): I48.0 - Paroxysmal atrial fibrillation (5) Sepsis associated hypotension Assessment/Plan: Gram negative sepsis due to UTI. Continue Zosyn IV Follow GNB ID Code(s): A41.9 - SEPSIS, UNSPECIFIED ORGANISM
[2017-06-19] MEDS ORDERED: POTASSIUM CHLORIDE ORAL LIQUID 20 MEQ/15 ML PO ONE (09:09)
[2017-06-19] MEDS ORDERED: PT OWN MED DRAWER 7, Y5N ONE ×2 (09:25→12:49)
[2017-06-19] MEDS: MAGNESIUM HYDROX 2400MG/30ML ORAL SUSPENSION 30 ML CUP PO SCH (09:52)
--- NOTE | 2017-06-19 09:52 | PN ---
Physical Exam: SUBJECTIVE: Much improved mood and level of agitation. Sleeping comfortably and easily wakes to voice. OBJECTIVE: Vital Signs Period Temp Pulse Resp BP Sys/Zhu Pulse Ox Last 24 Hr 97.9 F-98.6 F 59-82 16-28 90-117/47-69 97-100 GENERAL: The patient is awake, alert, but only oriented to person. Continuously asks/ states "What are you doing to me? What are these medications for? You are trying to kill me! Help!" HEAD: Normal with no signs of trauma. EYES: Keeps eyes mostly closed, so a good occular examination proved quite difficult. No ptosis. ENT: Ears normal, nares patent, oropharynx clear without exudates, moist mucous membranes. NECK: Trachea midline, full range of motion, supple. LUNGS: Unable to auscultate right lower lobe and lung sounds generally distant. No wheezes, no crackles, no accessory muscle use. HEART: Regular rate and rhythm, S1, S2 without murmur, rub or gallop. ABDOMEN: Soft, nontender, nondistended, normoactive bowel sounds, no guarding, no rebound, no hepatosplenomegaly, no masses. EXTREMITIES: 2+ pulses, warm, well-perfused, no edema. NEUROLOGICAL: Normal speech, gait not observed. PSYCH: Normal mood, normal affect. SKIN: Warm, dry, normal turgor, no rashes or lesions noted Laboratory Results - last 24 hr 06/19/17 06/19/17 06/19/17 06:20 06:20 07:00 WBC 6.4 RBC 4.05 Hgb 12.0 Hct 36.1 MCV 89.1 MCH 29.6 MCHC 33.2 RDW 16.0 H Plt Count 150 MPV 8.1 Absolute Neuts (auto) 5.5 L Absolute Lymphs (auto) 0.3 L Absolute Monos (auto) 0.5 L Absolute Eos (auto) 0.0 Absolute Basos (auto) 0.0 L Neutrophils % 86.8 H Lymphocytes % 4.5 L D Monocytes % 7.9 Eosinophils % 0.5 D Basophils % 0.3 Sodium 144 Potassium 3.1 L Chloride 104 Carbon Dioxide 33 H D Anion Gap 7 L BUN 31 H Creatinine 1.2 Creat Clearance w eGFR 57.54 Random Glucose 97 Calcium 7.9 L Total Bilirubin 0.6 AST 57 H D ALT 53 Alkaline Phosphatase 90 Creatine Kinase 235 Cancelled Creatine Kinase Index 1.5 CK-MB (CK-2) 3.66 H Troponin I 0.38 H D Cancelled Total Protein 4.9 L Albumin 2.1 L Active Medications Generic Name Dose Route Start Last Admin Trade Name Freq PRN Reason Stop Dose Admin Atorvastatin Calcium 20 mg 06/18/17 22:00 06/18/17 22:46 Lipitor - PO 20 mg HS YASIR Administration Cholecalciferol 1,000 unit 06/19/17 10:00 Vitamin D3 - PO DAILY [facility] Colchicine 0.6 mg 06/19/17 10:00 Colcrys - PO DAILY YASIR Dabigatran 150 mg 06/18/17 22:00 06/18/17 22:46 Pradaxa - PO 150 mg BID YASIR Administration Docusate Sodium 100 mg 06/19/17 10:00 Colace - PO DAILY YASIR Donepezil HCl 5 mg 06/18/17 22:00 06/18/17 22:43 Aricept - PO 5 mg HS YASIR Administration Folic Acid 1 mg 06/19/17 10:00 Folic Acid - PO DAILY YASIR Furosemide 20 mg 06/19/17 10:00 Lasix Injection - IVPUSH DAILY [facility] Piperacillin Sod/Tazobactam 100 mls @ 200 mls/hr 06/18/17 21:00 06/19/17 03: 33 Sod 3.375 gm/ Dextrose IVPB 200 mls/hr Q6H-IV YASIR Administration Magnesium Hydroxide 30 ml 06/19/17 10:00 Milk Of Magnesia - PO DAILY YASIR Magnesium Oxide 400 mg 06/18/17 22:00 06/18/17 22:46 Mag-Ox - PO 400 mg BID YASIR Administration Mupirocin 1 applic 06/18/17 22:00 06/18/17 22:43 Bactroban Ointment (For Decolonization) - NS 06/22/17 21:59 1 applic BID YASIR Administration Polyethylene Glycol 17 gm 06/18/17 22:00 06/18/17 22:46 Miralax (For Daily Use) - PO Not Given BID YASIR Potassium Chloride 20 meq 06/19/17 10:00 K-Dur - PO DAILY YASIR Senna/Docusate Sodium 1 tablet 06/18/17 17:32 Pericolace - PO DAILY PRN CONSTIPATION Silver Sulfadiazine 1 applic 06/19/17 10:00 Silvadene - TP DAILY YASIR Sotalol HCl 40 mg 06/19/17 10:00 Betapace - PO DAILY YAISR ASSESSMENT/PLAN: 86yom with PMH HTN, HLD, hypokalemia, CAD, Alzheimer's, afib (on Pradaxa), CHF, gout, admitted to floor for treatment of a UTI, PNA and CHF exacerbation now transferred to ICU with hypotension 2/2 m/l urosepsis. BP stable off of fluid. Now DNR. Plan: Neuro: - Appears to be at his baseline of dementia - Can consider starting olanzapine since QTC <500, currently 447 - Can use Ativan for now very low dose 0.25 IV if QT prolongation is of concern. CV: #CHF: - Lasix #Afib: -Pradaxa -Sotalol Pulm: -PNA treatmetn per below - Current on NC 1.5 L SATing 100% ID: #UTI: GNB in urine - Zosyn day 2 but can de-escalate given speciation below if PNA not of major concern - E. Coli grown in blood / urine sensitive to Zosyn, Ceftriaxone, and Levaquin #PNA: R basilar consolidation - Can consider switch to ceftriaxone per primary team if not overtly concerned for aspiration PNA FEN: - Off fluids - Will attempt PO today - repletion PRN Prophy: -Pradaxa Dispo: - Safe for discharge to med surg Visit type - Emergency Visit Emergency Visit: No - New Patient This patient is new to me today: No - Critical Care Critical Care patient: Yes Total Critical Care Time (in minutes): 35 Critical Care Statement: The care of this patient involved high complexity decision making to prevent further life threatening deterioration of the patient 's condition and/or to evaluate & treat vital organ system(s) failure or risk of failure. - Discharge Referral Referred to [facility] Med P.C.: No
[2017-06-19] MEDS: COLCHICINE 0.6 MG TABLET (FP) PO SCH (09:53)
[2017-06-19] MEDS: FUROSEMIDE 40 MG/4 ML INJECTABLE VIAL IVPUSH SCH (09:53)
[2017-06-19] MEDS: MUPIROCIN 2% TOPICAL OINTMENT FOR DECOLONIZATION NS SCH ×2 (09:53→21:33)
[2017-06-19] MEDS: CHOLECALCIFEROL (VITAMIN D3) 1,000 UNIT TABLET (FP) PO SCH (09:54)
[2017-06-19] MEDS: DOCUSATE SODIUM 100 MG CAPSULE (FP) PO SCH (09:54)
[2017-06-19] MEDS: FOLIC ACID 1 MG TABLET (FP) PO SCH (09:55)
[2017-06-19] MEDS: POTASSIUM CHLORIDE TABS 20 MEQ TABLET.ER (FP) PO SCH (09:55)
[2017-06-19] MEDS: SOTALOL HCL 80 MG TABLET (FP) PO SCH (09:55)
[2017-06-19] MEDS: DABIGATRAN ETEXILATE MESYLATE 150 MG CAPSULE PO SCH ×2 (09:56→22:23)
[2017-06-19] MEDS: MAGNESIUM OXIDE 400 MG TABLET (FP) PO SCH ×2 (09:56→21:34)
[2017-06-19] MEDS: POLYETHYLENE GLYCOL 3350 119 GM BTL PO SCH ×2 (09:57→21:36)
[2017-06-19] MEDS: SILVER SULFADIAZINE 1% TOP CREAM 50 GM JAR TP SCH (09:58)
--- NOTE | 2017-06-19 10:04 | PN ---
Progress Note, Physician Chief Complaint: remains more alert History of Present Illness: TELE: Still with some V ectopy, but all non-sustained - Current Medication List Current Medications: Active Medications Atorvastatin Calcium (Lipitor -) 20 mg PO HS [facility] Last Admin: 06/18/17 22:46 Dose: 20 mg Cholecalciferol (Vitamin D3 -) 1,000 unit PO DAILY [facility] Last Admin: 06/19/17 09:54 Dose: 1,000 unit Colchicine (Colcrys -) 0.6 mg PO DAILY [facility] Last Admin: 06/19/17 09:53 Dose: 0.6 mg Dabigatran (Pradaxa -) 150 mg PO BID [facility] Last Admin: 06/19/17 09:56 Dose: 150 mg Docusate Sodium (Colace -) 100 mg PO DAILY [facility] Last Admin: 06/19/17 09:54 Dose: 100 mg Donepezil HCl (Aricept -) 5 mg PO HS [facility] Last Admin: 06/18/17 22:43 Dose: 5 mg Folic Acid (Folic Acid -) 1 mg PO DAILY [facility] Last Admin: 06/19/17 09:55 Dose: 1 mg Furosemide (Lasix Injection -) 20 mg IVPUSH DAILY [facility] Last Admin: 06/19/17 09:53 Dose: 20 mg Piperacillin Sod/Tazobactam (Sod 3.375 gm/ Dextrose) 100 mls @ 200 mls/hr IVPB Q6H-IV [facility] Last Admin: 06/19/17 09:59 Dose: 200 mls/hr Magnesium Hydroxide (Milk Of Magnesia -) 30 ml PO DAILY [facility] Last Admin: 06/19/17 09:52 Dose: 30 ml Magnesium Oxide (Mag-Ox -) 400 mg PO BID [facility] Last Admin: 06/19/17 09:56 Dose: 400 mg Mupirocin (Bactroban Ointment (For Decolonization) -) 1 applic NS BID [facility] Stop: 06/22/17 21:59 Last Admin: 06/19/17 09:53 Dose: 1 applic Polyethylene Glycol (Miralax (For Daily Use) -) 17 gm PO BID [facility] Last Admin: 06/19/17 09:57 Dose: 17 grams Potassium Chloride (K-Dur -) 20 meq PO DAILY [facility] Last Admin: 06/19/17 09:55 Dose: 20 meq Senna/Docusate Sodium (Pericolace -) 1 tablet PO DAILY PRN PRN Reason: CONSTIPATION Silver Sulfadiazine (Silvadene -) 1 applic TP DAILY [facility] Last Admin: 06/19/17 09:58 Dose: 1 applic Sotalol HCl (Betapace -) 40 mg PO DAILY [facility] Last Admin: 06/19/17 09:55 Dose: 40 mg - Objective Vital Signs: Vital Signs Temperature 98.1 F 06/19/17 06:00 Pulse Rate 59 L 06/19/17 08:56 Respiratory Rate 16 06/19/17 08:56 Blood Pressure 117/66 06/19/17 08:56 O2 Sat by Pulse Oximetry (%) 100 06/19/17 06:00 Constitutional: Yes: No Distress Cardiovascular: Yes: Regular Rate and Rhythm Respiratory: Yes: CTA Bilaterally Gastrointestinal: Yes: Soft Edema: No Neurological: Yes: Alert, Oriented Labs: CBC, BMP 06/19/17 06:20 06/19/17 06:20 INR, PTT INR 1.71 (0.82-1.09) H D 06/16/17 23:38 Microbiology 06/16/17 23:38 Blood - Peripheral Venous Blood Culture - Final Klebsiella Pneumoniae 06/17/17 02:20 Urine - Urine Clean Catch Urine Culture - Preliminary Lactose Fermenting Neg Bacilli 06/16/17 23:38 Blood - Peripheral Venous Blood Culture - Preliminary Lactose Fermenting Neg Bacilli Laboratory Tests 06/19/17 06/19/17 06:20 06:20 WBC 6.4 Hgb 12.0 Plt Count 150 Sodium 144 Potassium 3.1 L Creatinine 1.2 ALT 53 Alkaline Phosphatase 90 Creatine Kinase 235 CK-MB (CK-2) 3.66 H Troponin I 0.38 H D - ....Imaging EKG: Image Reviewed Problem List - Problems (1) Failure to thrive in adult Code(s): R62.7 - ADULT FAILURE TO THRIVE (2) Fever Code(s): R50.9 - FEVER, UNSPECIFIED Qualifiers: Fever type: due to other condition Qualified Code(s): R50.81 - Fever presenting with conditions classified elsewhere (3) Cellulitis Code(s): L03.90 - CELLULITIS, UNSPECIFIED Qualifiers: Site of cellulitis of extremity: upper extremity Laterality: right (4) Altered mental status Code(s): R41.82 - ALTERED MENTAL STATUS, UNSPECIFIED Qualifiers: Altered mental status type: unspecified Qualified Code(s): R41.82 - Altered mental status, unspecified (5) CHF (congestive heart failure) Code(s): I50.9 - HEART FAILURE, UNSPECIFIED Qualifiers: Congestive heart failure type: unspecified congestive heart failure type Congestive heart failure chronicity: unspecified congestive heart failure chronicity Qualified Code(s): I50.9 - Heart failure, unspecified (6) ICD (implantable cardioverter-defibrillator) in place Code(s): Z95.810 - PRESENCE OF AUTOMATIC (IMPLANTABLE) CARDIAC DEFIBRILLATOR (7) Afib Code(s): I48.91 - UNSPECIFIED ATRIAL FIBRILLATION Qualifiers: Atrial fibrillation type: paroxysmal Qualified Code(s): I48.0 - Paroxysmal atrial fibrillation (8) Alzheimer disease Code(s): G30.9 - ALZHEIMER'S DISEASE, UNSPECIFIED Qualifiers: Alzheimer's disease onset: unspecified onset Assessment/Plan Problem List - Problems (1) Failure to thrive in adult Assessment/Plan: -fever and gram - bacteremia. -follow cultures, abx as per PMD Code(s): R62.7 - ADULT FAILURE TO THRIVE (2) Fever Assessment/Plan: -As above, follow cultures; abx as per PMD. Code(s): R50.9 - FEVER, UNSPECIFIED Qualifiers: Fever type: due to other condition Qualified Code(s): R50.81 - Fever presenting with conditions classified elsewhere (3) Altered mental status Assessment/Plan: -likely due to infection, plan as above for possible sources Code(s): R41.82 - ALTERED MENTAL STATUS, UNSPECIFIED Qualifiers: Altered mental status type: unspecified Qualified Code(s): R41.82 - Altered mental status, unspecified (4) CHF (congestive heart failure) Assessment/Plan: -mild acute on chronic systolic -Continue IV Lasix as BP allows Code(s): I50.9 - HEART FAILURE, UNSPECIFIED Qualifiers: Congestive heart failure type: unspecified congestive heart failure type Congestive heart failure chronicity: unspecified congestive heart failure chronicity Qualified Code(s): I50.9 - Heart failure, unspecified (5) ICD (implantable cardioverter-defibrillator) in place Assessment/Plan: -Secondary to ischemic CM, h/o VT documented -Now having frequent V ectopy -Keep K+ >4, Mg 2+ >2 -Continue Sotalol Code(s): Z95.810 - PRESENCE OF AUTOMATIC (IMPLANTABLE) CARDIAC DEFIBRILLATOR (6) Afib Assessment/Plan: -Continue Pradaxa Code(s): I48.91 - UNSPECIFIED ATRIAL FIBRILLATION Qualifiers: Atrial fibrillation type: paroxysmal Qualified Code(s): I48.0 - Paroxysmal atrial fibrillation (7) Alzheimer disease Code(s): G30.9 - ALZHEIMER'S DISEASE, UNSPECIFIED Qualifiers: Alzheimer's disease onset: unspecified onset
[2017-06-19 11:19] LABS: ALBUMIN 2.2 g/dl (3.4-5.0); ANION GAP 6 (8-16); BLOOD UREA NITROGEN 30 mg/dL (7-18); CALCIUM 7.8 mg/dL (8.5-10.1); CHLORIDE 104 mmol/L (98-107); CO2 33 mmol/L (21-32); CREATININE 1.1 mg/dL (0.7-1.3); GLUCOSE,RANDOM 107 mg/dL (74-106); POTASSIUM 3.2 mmol/L (3.5-5.1); SGOT/AST 51 U/L (15-37); SGPT/ALT 54 U/L (12-78); SODIUM 143 mmol/L (136-145)
[2017-06-19 11:21] LABS: ALK PHOS 102 U/L (45-117); BILIRUBIN,TOTAL 0.7 mg/dL (0.2-1.0); TOT PROT 5.2 g/dl (6.4-8.2)
--- NOTE | 2017-06-19 13:07 | PN ---
Teaching Attending Note Name of Resident: Marylu Everett ATTENDING PHYSICIAN STATEMENT I saw and evaluated the patient. I reviewed the resident's note and discussed the case with the resident. I agree with the resident's findings and plan as documented. SUBJECTIVE: Patient seen and examined in the ICU. Awake and alert, but mildly confused. Denies shortness of breath or chest pain. Currently off pressors. OBJECTIVE: Intake & Output 06/16/17 06/17/17 06/18/17 06/19/17 23:59 23:59 23:59 23:59 Intake Total 2530 1560 1150 Balance 2530 1560 1150 Weight 160 lb 168 lb 169 lb 2 oz Last Vital Signs Temp Pulse Resp BP Pulse Ox 98.4 F 95 H 18 111/76 97 06/19/17 10:00 06/19/17 10:00 06/19/17 10:00 06/19/17 10:00 06/19/17 09:00 Active Medications Atorvastatin Calcium (Lipitor -) 20 mg PO HS [facility] Last Admin: 06/18/17 22:46 Dose: 20 mg Cholecalciferol (Vitamin D3 -) 1,000 unit PO DAILY [facility] Last Admin: 06/19/17 09:54 Dose: 1,000 unit Colchicine (Colcrys -) 0.6 mg PO DAILY [facility] Last Admin: 06/19/17 09:53 Dose: 0.6 mg Dabigatran (Pradaxa -) 150 mg PO BID [facility] Last Admin: 06/19/17 09:56 Dose: 150 mg Docusate Sodium (Colace -) 100 mg PO DAILY [facility] Last Admin: 06/19/17 09:54 Dose: 100 mg Donepezil HCl (Aricept -) 5 mg PO HS [facility] Last Admin: 06/18/17 22:43 Dose: 5 mg Folic Acid (Folic Acid -) 1 mg PO DAILY [facility] Last Admin: 06/19/17 09:55 Dose: 1 mg Furosemide (Lasix Injection -) 20 mg IVPUSH DAILY [facility] Last Admin: 06/19/17 09:53 Dose: 20 mg Piperacillin Sod/Tazobactam (Sod 3.375 gm/ Dextrose) 100 mls @ 200 mls/hr IVPB Q6H-IV [facility] Last Admin: 06/19/17 09:59 Dose: 200 mls/hr Magnesium Hydroxide (Milk Of Magnesia -) 30 ml PO DAILY [facility] Last Admin: 06/19/17 09:52 Dose: 30 ml Magnesium Oxide (Mag-Ox -) 400 mg PO BID [facility] Last Admin: 06/19/17 09:56 Dose: 400 mg Mupirocin (Bactroban Ointment (For Decolonization) -) 1 applic NS BID [facility] Stop: 06/22/17 21:59 Last Admin: 06/19/17 09:53 Dose: 1 applic Polyethylene Glycol (Miralax (For Daily Use) -) 17 gm PO BID [facility] Last Admin: 06/19/17 09:57 Dose: 17 grams Potassium Chloride (K-Dur -) 20 meq PO DAILY [facility] Last Admin: 06/19/17 09:55 Dose: 20 meq Senna/Docusate Sodium (Pericolace -) 1 tablet PO DAILY PRN PRN Reason: CONSTIPATION Silver Sulfadiazine (Silvadene -) 1 applic TP DAILY [facility] Last Admin: 06/19/17 09:58 Dose: 1 applic Sotalol HCl (Betapace -) 40 mg PO DAILY [facility] Last Admin: 06/19/17 09:55 Dose: 40 mg Gen: NAD at rest, confused Heart: irregular Lung: decreased breath sounds at the bases Abd: soft, nontender Ext: no edema ASSESSMENT AND PLAN: UTI Gram Negative Bacteremia Severe Sepsis Acute Kidney Injury Atrial Fibrillation Severe LV Systolic Dysfunction Mitral Regurgitation Pulmonary HTN CAD Dementia - continue antibiotics - IVF - monitor urine output, creatinine - O2 to keep SpO2 >90% - rate controlled - continue anticoagulation - Floor / Telemetry Dr Luque Critical care time spent in reviewing chart, evaluating patient and formulating plan 35min
--- NOTE | 2017-06-19 13:42 | EKG ---
Test Reason : Blood Pressure : / mmHG Vent. Rate : 086 BPM Atrial Rate : 064 BPM P-R Int : 000 ms QRS Dur : 118 ms QT Int : 374 ms P-R-T Axes : 000 -27 103 degrees QTc Int : 447 ms ATRIAL FIBRILLATION WITH PREMATURE VENTRICULAR OR ABERRANTLY CONDUCTED COMPLEXES NON-SPECIFIC INTRA-VENTRICULAR CONDUCTION DELAY NONSPECIFIC ST AND T WAVE ABNORMALITY ABNORMAL ECG WHEN COMPARED WITH ECG OF 18-JUN-2017 13:19, QT HAS SHORTENED Confirmed by BRANDON JEFFERY MD ([id number]) on 06/19/2017 1:41:59 PM Referred By: Confirmed By:BRANDON JEFFERY MD
[2017-06-19] MEDS: DONEPEZIL HCL 5 MG TABLET (FP) PO SCH (21:33)
[2017-06-19] MEDS: ATORVASTATIN CA 20 MG TABLET (FP) PO SCH (21:34)
[2017-06-20] MEDS: PIPERACILLIN/TAZOB 3.375 GM 3.375 GM in DEXTROSE 5%-WATER - 100 ML IVPB SCH ×2 (02:50→09:09)
[2017-06-20 07:49] LABS: HEMATOCRIT 35.4 % (35.4-49); HEMOGLOBIN 11.3 GM/dL (11.7-16.9); MCH 28.8 pg (25.7-33.7); MEAN PLT VOLUME 7.7 fl (7.5-11.1); PLATELET COUNT 126 K/MM3 (134-434); RBC 3.93 M/mm3 (4.00-5.60); RDW 16.1 % (11.9-15.9); WHITE BLOOD COUNT 5.2 K/mm3 (4.0-10.0)
[2017-06-20 08:14] LABS: ALBUMIN 2.1 g/dl (3.4-5.0); ANION GAP 7 (8-16); BLOOD UREA NITROGEN 26 mg/dL (7-18); CHLORIDE 105 mmol/L (98-107); CO2 34 mmol/L (21-32); GLUCOSE,RANDOM 89 mg/dL (74-106); POTASSIUM 3.1 mmol/L (3.5-5.1); SGOT/AST 40 U/L (15-37); SGPT/ALT 47 U/L (12-78); SODIUM 146 mmol/L (136-145)
[2017-06-20 08:15] LABS: ALK PHOS 103 U/L (45-117); BILIRUBIN,TOTAL 0.5 mg/dL (0.2-1.0); CREATININE 1.1 mg/dL (0.7-1.3); TOT PROT 4.8 g/dl (6.4-8.2)
--- NOTE | 2017-06-20 09:58 | PN ---
Progress Note (short form) - Note Progress Note: ID Remains stable on Pip Tazo day 4 therapy Selected Entries 06/20/17 06:28 Temperature 97.7 F Pulse Rate 73 Respiratory 18 Rate Blood Pressure 140/65 Microbiology 06/17/17 02:20 Urine - Urine Clean Catch Urine Culture - Final Klebsiella Pneumoniae 06/16/17 23:38 Blood - Peripheral Venous Blood Culture - Final Klebsiella Pneumoniae 06/16/17 23:38 Blood - Peripheral Venous Blood Culture - Final Klebsiella Pneumoniae Laboratory Tests 06/20/17 06/20/17 06:10 06:10 WBC 5.2 Hgb 11.3 L Hct 35.4 Plt Count 126 L BUN 26 H Creatinine 1.1 Creat Clearance w eGFR > 60 Assessment Klebsiella bacteremia improving pansensitive Plan Will switch to ceftriaxone for now and levoflox orally for discharge Lenora GONCALVES Problem List - Problems (1) Gram-negative bacteremia Code(s): R78.81 - BACTEREMIA (2) Sepsis Code(s): A41.9 - SEPSIS, UNSPECIFIED ORGANISM (3) UTI (urinary tract infection) Code(s): N39.0 - URINARY TRACT INFECTION, SITE NOT SPECIFIED
[2017-06-20] MEDS ORDERED: CEFTRIAXONE 1 GM/50 ML BAG IVPB SCH (10:45)
[2017-06-20] MEDS: FOLIC ACID 1 MG TABLET (FP) PO SCH (11:04)
[2017-06-20] MEDS: SOTALOL HCL 80 MG TABLET (FP) PO SCH (11:04)
[2017-06-20] MEDS: CHOLECALCIFEROL (VITAMIN D3) 1,000 UNIT TABLET (FP) PO SCH (11:04)
[2017-06-20] MEDS: COLCHICINE 0.6 MG TABLET (FP) PO SCH (11:05)
[2017-06-20] MEDS: MAGNESIUM OXIDE 400 MG TABLET (FP) PO SCH ×2 (11:05→21:53)
[2017-06-20] MEDS: POTASSIUM CHLORIDE TABS 20 MEQ TABLET.ER (FP) PO SCH (11:05)
[2017-06-20] MEDS: DABIGATRAN ETEXILATE MESYLATE 150 MG CAPSULE PO SCH ×2 (11:05→21:58)
[2017-06-20] MEDS: DOCUSATE SODIUM 100 MG CAPSULE (FP) PO SCH (11:05)
[2017-06-20] MEDS: SILVER SULFADIAZINE 1% TOP CREAM 50 GM JAR TP SCH (11:06)
[2017-06-20] MEDS: FUROSEMIDE 40 MG/4 ML INJECTABLE VIAL IVPUSH SCH (11:06)
[2017-06-20] MEDS: MAGNESIUM HYDROX 2400MG/30ML ORAL SUSPENSION 30 ML CUP PO SCH (11:06)
[2017-06-20] MEDS: MUPIROCIN 2% TOPICAL OINTMENT FOR DECOLONIZATION NS SCH ×2 (11:06→21:53)
[2017-06-20] MEDS: POLYETHYLENE GLYCOL 3350 119 GM BTL PO SCH ×2 (11:06→21:53)
[2017-06-20] MEDS ORDERED: POTASSIUM CHLORIDE TABS 20 MEQ TABLET.ER (FP) PO ONE (11:54)
[2017-06-20] MEDS ORDERED: D5-1/2NS+20 MEQ KCL - 20 MEQ/1,000 ML INFUS.BAG IV SCH (12:00)
--- NOTE | 2017-06-20 12:13 | PN ---
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 Previously found to have A.fib on Holter by Dr. Jones and after last discharge the pt was re- started on Pradaxa PO. Significant weight loss over the last year-w/u negative. Constipation-recent hospitalization at [facility]-EGD/Colonoscopy done-found rectal ulcer. Diverticulosis, Possible bladder lesion and hematuria. Seen by urology during last hospitalization. Advised f/u as outpatient. Pressure ulcers. Gallstones. - Current Medication List Current Medications: Active Medications Atorvastatin Calcium (Lipitor -) 20 mg PO HS [facility] Last Admin: 06/19/17 21:34 Dose: 20 mg Cholecalciferol (Vitamin D3 -) 1,000 unit PO DAILY [facility] Last Admin: 06/20/17 11:04 Dose: 1,000 unit Colchicine (Colcrys -) 0.6 mg PO DAILY [facility] Last Admin: 06/20/17 11:05 Dose: 0.6 mg Dabigatran (Pradaxa -) 150 mg PO BID [facility] Last Admin: 06/20/17 11:05 Dose: 150 mg Docusate Sodium (Colace -) 100 mg PO DAILY [facility] Last Admin: 06/20/17 11:05 Dose: 100 mg Donepezil HCl (Aricept -) 5 mg PO HS [facility] Last Admin: 06/19/17 21:33 Dose: 5 mg Folic Acid (Folic Acid -) 1 mg PO DAILY [facility] Last Admin: 06/20/17 11:04 Dose: 1 mg Furosemide (Lasix Injection -) 20 mg IVPUSH DAILY [facility] Last Admin: 06/20/17 11:06 Dose: 20 mg CEFTRIAXONE 1 G/50 ML PREMIX (Ceftriaxone 1 Gm-D5w Bag) 50 mls @ 100 mls/hr IVPB DAILY [facility] Potassium Chloride/Dextrose/Sod Cl (D5-1/2ns+20 Meq Kcl -) 20 meq in 1,000 mls @ 42 mls/hr IV ASDIR [facility] Magnesium Hydroxide (Milk Of Magnesia -) 30 ml PO DAILY [facility] Last Admin: 06/20/17 11:06 Dose: 30 ml Magnesium Oxide (Mag-Ox -) 400 mg PO BID [facility] Last Admin: 06/20/17 11:05 Dose: 400 mg Mupirocin (Bactroban Ointment (For Decolonization) -) 1 applic NS BID [facility] Stop: 06/22/17 21:59 Last Admin: 06/20/17 11:06 Dose: Not Given Olanzapine (Zyprexa -) 2.5 mg PO HS [facility] Polyethylene Glycol (Miralax (For Daily Use) -) 17 gm PO BID [facility] Last Admin: 06/20/17 11:06 Dose: 17 grams Potassium Chloride (K-Dur -) 20 meq PO DAILY [facility] Last Admin: 06/20/17 11:05 Dose: 20 meq Potassium Chloride (K-Dur -) 40 meq PO ONCE ONE Stop: 06/20/17 11:55 Potassium Chloride (Potassium Chloride Oral Liquid) 40 meq PO ONCE ONE Stop: 06/20/17 11:58 Senna/Docusate Sodium (Pericolace -) 1 tablet PO DAILY PRN PRN Reason: CONSTIPATION Silver Sulfadiazine (Silvadene -) 1 applic TP DAILY [facility] Last Admin: 06/20/17 11:06 Dose: 1 applic Sotalol HCl (Betapace -) 40 mg PO DAILY [facility] Last Admin: 06/20/17 11:04 Dose: 40 mg - Objective Vital Signs: Vital Signs Temperature 98.4 F 06/20/17 10:00 Pulse Rate 70 06/20/17 10:00 Respiratory Rate 20 06/20/17 10:00 Blood Pressure 124/63 06/20/17 10:00 O2 Sat by Pulse Oximetry (%) 98 06/19/17 21:00 Constitutional: Yes: No Distress, Anxious Eyes: Yes: Conjunctiva Clear, EOM Intact HENT: Yes: Atraumatic, Normocephalic Neck: Yes: Supple, Trachea Midline Cardiovascular: Yes: Pulse Irregular, Murmur, S1, S2 Respiratory: Yes: Regular, CTA Bilaterally. No: Cough Gastrointestinal: Yes: Normal Bowel Sounds, Soft. No: Abdomen, Obese ...Rectal Exam: Yes: Deferred Genitourinary: Yes: Anuria, Bladder Distention Musculoskeletal: Yes: WNL Extremities: No: Calf Tenderness, Cold, Cyanosis Edema: No Peripheral Pulses WNL: No Integumentary: Yes: WNL Neurological: Yes: Alert, Oriented ...Motor Strength: WNL Psychiatric: Yes: Alert. No: Oriented, Agitated, Suicidal Ideation Labs: CBC, BMP 06/20/17 06:10 06/20/17 06:10 INR, PTT INR 1.71 (0.82-1.09) H D 06/16/17 23:38 Problem List - Problems (1) Altered mental status Assessment/Plan: Dementia with toxic-metabolic encephalopathy. Improved. Will need SNF placement Code(s): R41.82 - ALTERED MENTAL STATUS, UNSPECIFIED Qualifiers: Altered mental status type: unspecified Qualified Code(s): R41.82 - Altered mental status, unspecified (2) Pneumonia Assessment/Plan: CT c/w RLL infiltrate effusion, R/O PNA, r/o aspiration. IV ABX pulm consult. Hypotension now IV fluids. Code(s): J18.9 - PNEUMONIA, UNSPECIFIED ORGANISM Qualifiers: Pneumonia type: due to unspecified organism Laterality: right Lung location: lower lobe of lung Qualified Code(s): J18.1 - Lobar pneumonia, unspecified organism (3) CHF (congestive heart failure), NYHA class III Assessment/Plan: Noted vascular congestion on CT chest. Cardiology consult appreciated. Follow volume status IV lasix, follow electrolytes. Code(s): I50.9 - HEART FAILURE, UNSPECIFIED Qualifiers: Congestive heart failure type: combined Congestive heart failure chronicity : acute on chronic Qualified Code(s): I50.43 - Acute on chronic combined systolic (congestive) and diastolic (congestive) heart failure (4) Afib Assessment/Plan: Continue Pradaxa PO Code(s): I48.91 - UNSPECIFIED ATRIAL FIBRILLATION Qualifiers: Atrial fibrillation type: paroxysmal Qualified Code(s): I48.0 - Paroxysmal atrial fibrillation (5) Sepsis associated hypotension Assessment/Plan: Gram negative sepsis due to UTI. UA cx-K.pneumonuae BLD cx-K.Pneumonia- poth Pab S Now on Ceftriaxone IV-S Code(s): A41.9 - SEPSIS, UNSPECIFIED ORGANISM (6) Hypokalemia due to loss of potassium Assessment/Plan: Replete potassium PO Code(s): E87.6 - HYPOKALEMIA
--- NOTE | 2017-06-20 12:44 | PN ---
Progress Note (short form) - Note Progress Note: PULMONARY Denies shortness of breath or chest pain. No fevers or chills. Last Vital Signs Temp Pulse Resp BP Pulse Ox 98.4 F 70 20 124/63 98 06/20/17 10:00 06/20/17 10:00 06/20/17 10:00 06/20/17 10:00 06/19/17 21:00 Gen: NAD at rest Heart: RRR Lung: decreased breath sounds at the bases Abd: soft, nontender Ext: no edema CBC, BMP 06/20/17 06:10 06/20/17 06:10 Active Medications Atorvastatin Calcium (Lipitor -) 20 mg PO HS [facility] Last Admin: 06/19/17 21:34 Dose: 20 mg Cholecalciferol (Vitamin D3 -) 1,000 unit PO DAILY [facility] Last Admin: 06/20/17 11:04 Dose: 1,000 unit Colchicine (Colcrys -) 0.6 mg PO DAILY [facility] Last Admin: 06/20/17 11:05 Dose: 0.6 mg Dabigatran (Pradaxa -) 150 mg PO BID [facility] Last Admin: 06/20/17 11:05 Dose: 150 mg Docusate Sodium (Colace -) 100 mg PO DAILY [facility] Last Admin: 06/20/17 11:05 Dose: 100 mg Donepezil HCl (Aricept -) 5 mg PO HS [facility] Last Admin: 06/19/17 21:33 Dose: 5 mg Folic Acid (Folic Acid -) 1 mg PO DAILY [facility] Last Admin: 06/20/17 11:04 Dose: 1 mg Furosemide (Lasix Injection -) 20 mg IVPUSH DAILY [facility] Last Admin: 06/20/17 11:06 Dose: 20 mg CEFTRIAXONE 1 G/50 ML PREMIX (Ceftriaxone 1 Gm-D5w Bag) 50 mls @ 100 mls/hr IVPB DAILY [facility] Dextrose/Sodium Chloride (D5-1/2ns+40 Meq Kcl -) 40 meq in 1,000 mls @ 42 mls/ hr IV ASDIR [facility] Magnesium Hydroxide (Milk Of Magnesia -) 30 ml PO DAILY [facility] Last Admin: 06/20/17 11:06 Dose: 30 ml Magnesium Oxide (Mag-Ox -) 400 mg PO BID [facility] Last Admin: 06/20/17 11:05 Dose: 400 mg Mupirocin (Bactroban Ointment (For Decolonization) -) 1 applic NS BID [facility] Stop: 06/22/17 21:59 Last Admin: 06/20/17 11:06 Dose: Not Given Olanzapine (Zyprexa -) 2.5 mg PO HS [facility] Polyethylene Glycol (Miralax (For Daily Use) -) 17 gm PO BID [facility] Last Admin: 06/20/17 11:06 Dose: 17 grams Potassium Chloride (K-Dur -) 20 meq PO DAILY [facility] Last Admin: 06/20/17 11:05 Dose: 20 meq Potassium Chloride (K-Dur -) 40 meq PO ONCE ONE Stop: 06/20/17 11:55 Potassium Chloride (Potassium Chloride Oral Liquid) 40 meq PO ONCE ONE Stop: 06/20/17 11:58 Senna/Docusate Sodium (Pericolace -) 1 tablet PO DAILY PRN PRN Reason: CONSTIPATION Silver Sulfadiazine (Silvadene -) 1 applic TP DAILY [facility] Last Admin: 06/20/17 11:06 Dose: 1 applic Sotalol HCl (Betapace -) 40 mg PO DAILY [facility] Last Admin: 06/20/17 11:04 Dose: 40 mg A/P UTI Klebsiella Bacteremia Severe Sepsis improving Acute Kidney Injury improving Atrial Fibrillation Severe LV Systolic Dysfunction Mitral Regurgitation Pulmonary HTN CAD Dementia - continue antibiotics - IVF - monitor urine output, creatinine - O2 to keep SpO2 >90% - rate controlled - continue anticoagulation
[2017-06-20] MEDS: D5-1/2NS+40 MEQ KCL - 40 MEQ/1,000 ML INFUS.BAG IV SCH (13:21)
[2017-06-20] MEDS ORDERED: POTASSIUM CHLORIDE ORAL LIQUID 20 MEQ/15 ML PO ONE (13:30)
--- NOTE | 2017-06-20 13:56 | PN ---
Progress Note, Physician Chief Complaint: Pt is talkative; denies chest pain, leg pain, shortness of breath. His daughters are at bedside. 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 As per the patients daughter, in the last several days, the patient has become increasingly weak with progressively decreasing appetite. The daughter states her father was unable to walk secondary to weakness today The daughter states there was no syncope that was observed or reported by others. He was found to be febrile, cultures were sent. He cannot provide history is currently nonverbal, this is my first encounter with him. - Current Medication List Current Medications: Active Medications Atorvastatin Calcium (Lipitor -) 20 mg PO HS [facility] Last Admin: 06/19/17 21:34 Dose: 20 mg Cholecalciferol (Vitamin D3 -) 1,000 unit PO DAILY [facility] Last Admin: 06/20/17 11:04 Dose: 1,000 unit Colchicine (Colcrys -) 0.6 mg PO DAILY [facility] Last Admin: 06/20/17 11:05 Dose: 0.6 mg Dabigatran (Pradaxa -) 150 mg PO BID [facility] Last Admin: 06/20/17 11:05 Dose: 150 mg Docusate Sodium (Colace -) 100 mg PO DAILY [facility] Last Admin: 06/20/17 11:05 Dose: 100 mg Donepezil HCl (Aricept -) 5 mg PO HS [facility] Last Admin: 06/19/17 21:33 Dose: 5 mg Folic Acid (Folic Acid -) 1 mg PO DAILY [facility] Last Admin: 06/20/17 11:04 Dose: 1 mg Furosemide (Lasix Injection -) 20 mg IVPUSH DAILY [facility] Last Admin: 06/20/17 11:06 Dose: 20 mg CEFTRIAXONE 1 G/50 ML PREMIX (Ceftriaxone 1 Gm-D5w Bag) 50 mls @ 100 mls/hr IVPB DAILY [facility] Dextrose/Sodium Chloride (D5-1/2ns+40 Meq Kcl -) 40 meq in 1,000 mls @ 42 mls/ hr IV ASDIR [facility] Last Admin: 06/20/17 13:21 Dose: 42 mls/hr Magnesium Hydroxide (Milk Of Magnesia -) 30 ml PO DAILY [facility] Last Admin: 06/20/17 11:06 Dose: 30 ml Magnesium Oxide (Mag-Ox -) 400 mg PO BID [facility] Last Admin: 06/20/17 11:05 Dose: 400 mg Mupirocin (Bactroban Ointment (For Decolonization) -) 1 applic NS BID [facility] Stop: 06/22/17 21:59 Last Admin: 06/20/17 11:06 Dose: Not Given Olanzapine (Zyprexa -) 2.5 mg PO HS [facility] Polyethylene Glycol (Miralax (For Daily Use) -) 17 gm PO BID [facility] Last Admin: 06/20/17 11:06 Dose: 17 grams Potassium Chloride (K-Dur -) 20 meq PO DAILY [facility] Last Admin: 06/20/17 11:05 Dose: 20 meq Senna/Docusate Sodium (Pericolace -) 1 tablet PO DAILY PRN PRN Reason: CONSTIPATION Silver Sulfadiazine (Silvadene -) 1 applic TP DAILY [facility] Last Admin: 06/20/17 11:06 Dose: 1 applic Sotalol HCl (Betapace -) 40 mg PO DAILY [facility] Last Admin: 06/20/17 11:04 Dose: 40 mg - Objective Vital Signs: Vital Signs Temperature 98.4 F 06/20/17 10:00 Pulse Rate 70 06/20/17 10:00 Respiratory Rate 20 06/20/17 10:00 Blood Pressure 124/63 06/20/17 10:00 O2 Sat by Pulse Oximetry (%) 98 06/19/17 21:00 Constitutional: Yes: Calm Eyes: Yes: WNL HENT: Yes: WNL Neck: Yes: WNL Cardiovascular: Yes: Pulse Irregular Respiratory: Yes: Diminished Gastrointestinal: Yes: Soft ...Rectal Exam: Yes: Deferred Genitourinary: No: Anuria Breast(s): Yes: WNL Musculoskeletal: Yes: Muscle Weakness, Other (left subclavicular ICD) Extremities: Yes: Cool Edema: No Peripheral Pulses WNL: No Peripheral Pulses: Left Doralis Pedis: 1+, Right Dorsalis Pedis: 1+ Integumentary: Yes: Other (healing LE irregular lesions) Neurological: Yes: Confusion, Weakness Psychiatric: Yes: Other (hx dementia; hx change in mental status leading to this admission) Labs: CBC, BMP 06/20/17 06:10 06/20/17 06:10 INR, PTT INR 1.71 (0.82-1.09) H D 06/16/17 23:38 Problem List - Problems (1) Afib Assessment/Plan: Replete electrolytes (keep K 4-4.5, Mg 2-2.3, PO4 2.5-3.5). Pt is on sotalol now, but daughters says this was changed earlier this year; they will bring in a list. He is [facility] at [facility]. I will conact his hangar attendant, Dr. Ramirez Jones. Code(s): I48.91 - UNSPECIFIED ATRIAL FIBRILLATION Qualifiers: Atrial fibrillation type: paroxysmal Qualified Code(s): I48.0 - Paroxysmal atrial fibrillation (2) Alzheimer disease Code(s): G30.9 - ALZHEIMER'S DISEASE, UNSPECIFIED Qualifiers: Alzheimer's disease onset: unspecified onset (3) CHF (congestive heart failure), NYHA class III Assessment/Plan: His systolic CHF. s/p ICD years ago. F/u results of last interrogation (reportedly had arrhythmias, including AF and ?VT). Keep on beta blockers; ACEI or ARB; consider aldactone. Code(s): I50.9 - HEART FAILURE, UNSPECIFIED Qualifiers: Congestive heart failure type: combined Congestive heart failure chronicity : acute on chronic Qualified Code(s): I50.43 - Acute on chronic combined systolic (congestive) and diastolic (congestive) heart failure (4) Failure to thrive in adult Code(s): R62.7 - ADULT FAILURE TO THRIVE (5) ICD (implantable cardioverter-defibrillator) in place Assessment/Plan: ICD interrogation: no recent shocks or prolonged arrhythmias Code(s): Z95.810 - PRESENCE OF AUTOMATIC (IMPLANTABLE) CARDIAC DEFIBRILLATOR (6) Pneumonia Code(s): J18.9 - PNEUMONIA, UNSPECIFIED ORGANISM Qualifiers: Pneumonia type: due to unspecified organism Laterality: right Lung location: lower lobe of lung Qualified Code(s): J18.1 - Lobar pneumonia, unspecified organism (7) UTI (urinary tract infection) Code(s): N39.0 - URINARY TRACT INFECTION, SITE NOT SPECIFIED (8) CAD (coronary artery disease) Code(s): I25.10 - ATHSCL HEART DISEASE OF [place] CORONARY ARTERY W/O ANG PCTRS Qualifiers: Coronary Disease-Associated Artery/Lesion type: bypass graft [place] vs. transplanted heart: [place] heart Associated angina: without angina Qualified Code(s): I25.810 - Atherosclerosis of coronary artery bypass graft(s) without angina pectoris (9) Cellulitis Code(s): L03.90 - CELLULITIS, UNSPECIFIED Qualifiers: Site of cellulitis of extremity: upper extremity Laterality: right (10) Hyperlipidemia Code(s): E78.5 - HYPERLIPIDEMIA, UNSPECIFIED (11) Multiple abrasions Assessment/Plan: f/u with reuben GONCALVES Code(s): T14.8 - OTHER INJURY OF UNSPECIFIED BODY REGION * DO NOT USE * (12) Ventricular tachyarrhythmia Assessment/Plan: f/u hx with pt's hangar attendant. Code(s): I47.2 - VENTRICULAR TACHYCARDIA
[2017-06-20] MEDS: LISINOPRIL 5 MG TABLET (FP) PO SCH (14:42)
[2017-06-20] MEDS: DONEPEZIL HCL 5 MG TABLET (FP) PO SCH (21:52)
[2017-06-20] MEDS: OLANZapine 2.5 MG TABLET PO SCH (21:53)
[2017-06-20] MEDS: ATORVASTATIN CA 20 MG TABLET (FP) PO SCH (21:53)
[2017-06-21 08:47] LABS: CHLORIDE 103 mmol/L (98-107); POTASSIUM 3.7 mmol/L (3.5-5.1); SODIUM 145 mmol/L (136-145)
[2017-06-21 08:53] LABS: ANION GAP 4 (8-16); BLOOD UREA NITROGEN 22 mg/dL (7-18); CALCIUM 8.1 mg/dL (8.5-10.1); CO2 38 mmol/L (21-32); CREATININE 0.9 mg/dL (0.7-1.3); GLUCOSE,RANDOM 97 mg/dL (74-106)
[2017-06-21] MEDS: LISINOPRIL 5 MG TABLET (FP) PO SCH (09:08)
[2017-06-21] MEDS: CEFTRIAXONE 1 G/50 ML PREMIX 50 ML IVPB SCH (09:08)
[2017-06-21] MEDS: POTASSIUM CHLORIDE TABS 20 MEQ TABLET.ER (FP) PO SCH (09:08)
[2017-06-21] MEDS: CHOLECALCIFEROL (VITAMIN D3) 1,000 UNIT TABLET (FP) PO SCH (09:08)
[2017-06-21] MEDS: SOTALOL HCL 80 MG TABLET (FP) PO SCH (09:08)
[2017-06-21] MEDS: FUROSEMIDE 40 MG/4 ML INJECTABLE VIAL IVPUSH SCH (09:09)
[2017-06-21] MEDS: FOLIC ACID 1 MG TABLET (FP) PO SCH (09:09)
[2017-06-21] MEDS: COLCHICINE 0.6 MG TABLET (FP) PO SCH (09:09)
[2017-06-21] MEDS: MUPIROCIN 2% TOPICAL OINTMENT FOR DECOLONIZATION NS SCH (09:09)
[2017-06-21] MEDS: DOCUSATE SODIUM 100 MG CAPSULE (FP) PO SCH (09:09)
[2017-06-21] MEDS: MAGNESIUM OXIDE 400 MG TABLET (FP) PO SCH ×2 (09:09→22:19)
[2017-06-21] MEDS: SILVER SULFADIAZINE 1% TOP CREAM 50 GM JAR TP SCH (09:10)
[2017-06-21] MEDS: MAGNESIUM HYDROX 2400MG/30ML ORAL SUSPENSION 30 ML CUP PO SCH (09:10)
[2017-06-21] MEDS: POLYETHYLENE GLYCOL 3350 119 GM BTL PO SCH ×2 (09:10→22:19)
--- NOTE | 2017-06-21 11:12 | PN ---
Progress Note, Physician Chief Complaint: awake, alert, NAD in bed Mildly confused. Stiill poor PO Intake. 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 HX of VT and AICD placement. Previously found to have A.fib on Holter by Dr. Jones and after last discharge the pt was re- started on Pradaxa PO. Significant weight loss over the last year-w/u negative. Constipation-recent hospitalization at [facility]-EGD/Colonoscopy done-found rectal ulcer. Diverticulosis, Possible bladder lesion and hematuria. Seen by urology during last hospitalization. Advised f/u as outpatient. Pressure ulcers. Gallstones. - Current Medication List Current Medications: Active Medications Atorvastatin Calcium (Lipitor -) 20 mg PO HS [facility] Last Admin: 06/20/17 21:53 Dose: 20 mg Cholecalciferol (Vitamin D3 -) 1,000 unit PO DAILY [facility] Last Admin: 06/21/17 09:08 Dose: 1,000 unit Colchicine (Colcrys -) 0.6 mg PO DAILY [facility] Last Admin: 06/21/17 09:09 Dose: 0.6 mg Dabigatran (Pradaxa -) 150 mg PO BID [facility] Last Admin: 06/20/17 21:58 Dose: 150 mg Docusate Sodium (Colace -) 100 mg PO DAILY [facility] Last Admin: 06/21/17 09:09 Dose: Not Given Donepezil HCl (Aricept -) 5 mg PO HS [facility] Last Admin: 06/20/17 21:52 Dose: 5 mg Folic Acid (Folic Acid -) 1 mg PO DAILY [facility] Last Admin: 06/21/17 09:09 Dose: 1 mg Furosemide (Lasix Injection -) 20 mg IVPUSH DAILY [facility] Last Admin: 06/21/17 09:09 Dose: 20 mg CEFTRIAXONE 1 G/50 ML PREMIX (Ceftriaxone 1 Gm-D5w Bag) 50 mls @ 100 mls/hr IVPB DAILY [facility] Last Admin: 06/21/17 09:08 Dose: 100 mls/hr Dextrose/Sodium Chloride (D5-1/2ns+40 Meq Kcl -) 40 meq in 1,000 mls @ 42 mls/ hr IV ASDIR [facility] Last Admin: 06/20/17 13:21 Dose: 42 mls/hr Lisinopril (Prinivil) 2.5 mg PO DAILY [facility] Last Admin: 06/21/17 09:08 Dose: 2.5 mg Magnesium Hydroxide (Milk Of Magnesia -) 30 ml PO DAILY [facility] Last Admin: 06/21/17 09:10 Dose: Not Given Magnesium Oxide (Mag-Ox -) 400 mg PO BID [facility] Last Admin: 06/21/17 09:09 Dose: 400 mg Mupirocin (Bactroban Ointment (For Decolonization) -) 1 applic NS BID [facility] Stop: 06/22/17 21:59 Last Admin: 06/21/17 09:09 Dose: Not Given Olanzapine (Zyprexa -) 2.5 mg PO HS [facility] Last Admin: 06/20/17 21:53 Dose: 2.5 mg Polyethylene Glycol (Miralax (For Daily Use) -) 17 gm PO BID [facility] Last Admin: 06/21/17 09:10 Dose: 17 grams Potassium Chloride (K-Dur -) 20 meq PO DAILY [facility] Last Admin: 06/21/17 09:08 Dose: 20 meq Senna/Docusate Sodium (Pericolace -) 1 tablet PO DAILY PRN PRN Reason: CONSTIPATION Silver Sulfadiazine (Silvadene -) 1 applic TP DAILY [facility] Last Admin: 06/21/17 09:10 Dose: 1 applic Sotalol HCl (Betapace -) 40 mg PO DAILY [facility] Last Admin: 06/21/17 09:08 Dose: 40 mg - Objective Vital Signs: Vital Signs Temperature 98.4 F 06/21/17 09:05 Pulse Rate 60 06/21/17 09:05 Respiratory Rate 17 06/21/17 09:05 Blood Pressure 118/56 06/21/17 09:05 O2 Sat by Pulse Oximetry (%) 98 06/20/17 21:00 Constitutional: Yes: Anxious, Mild Distress Eyes: Yes: Conjunctiva Clear, EOM Intact HENT: Yes: Atraumatic, Normocephalic. No: Drooling Neck: Yes: Supple, Trachea Midline Cardiovascular: Yes: Bradycardia, Pulse Irregular, Murmur, S1, S2, S3, Other ( Palpable AICD). No: JVD Respiratory: Yes: Regular, CTA Bilaterally, On Nasal O2 Gastrointestinal: Yes: Normal Bowel Sounds, Soft. No: Abdomen, Obese, Ascites ...Rectal Exam: Yes: Deferred Genitourinary: No: Anuria, Bladder Distention Breast(s): Yes: WNL Extremities: Yes: WNL Edema: No Peripheral Pulses WNL: No Neurological: Yes: Alert, Confusion. No: Oriented, Aphasia, Dysarthria, Seizure , Unresponsive ...Motor Strength: WNL Psychiatric: Yes: Alert. No: Oriented, Agitated, Suicidal Ideation Labs: CBC, BMP 06/20/17 06:10 06/21/17 08:05 INR, PTT INR 1.71 (0.82-1.09) H D 06/16/17 23:38 Problem List - Problems (1) Altered mental status Assessment/Plan: Dementia with toxic-metabolic encephalopathy. Improved. Will need SNF placement Code(s): R41.82 - ALTERED MENTAL STATUS, UNSPECIFIED Qualifiers: Altered mental status type: unspecified Qualified Code(s): R41.82 - Altered mental status, unspecified (2) Pneumonia Assessment/Plan: CT c/w RLL infiltrate effusion, R/O PNA, r/o aspiration. IV ABX pulm consult. Hypotension now IV fluids. Code(s): J18.9 - PNEUMONIA, UNSPECIFIED ORGANISM Qualifiers: Pneumonia type: due to unspecified organism Laterality: right Lung location: lower lobe of lung Qualified Code(s): J18.1 - Lobar pneumonia, unspecified organism (3) CHF (congestive heart failure), NYHA class III Assessment/Plan: Noted vascular congestion on CT chest. Cardiology consult appreciated. Follow volume status IV lasix, follow electrolytes. Code(s): I50.9 - HEART FAILURE, UNSPECIFIED Qualifiers: Congestive heart failure type: combined Congestive heart failure chronicity : acute on chronic Qualified Code(s): I50.43 - Acute on chronic combined systolic (congestive) and diastolic (congestive) heart failure (4) Afib Assessment/Plan: Continue Pradaxa PO Code(s): I48.91 - UNSPECIFIED ATRIAL FIBRILLATION Qualifiers: Atrial fibrillation type: paroxysmal Qualified Code(s): I48.0 - Paroxysmal atrial fibrillation (5) Sepsis associated hypotension Assessment/Plan: Gram negative sepsis due to UTI. UA cx-K.pneumonuae BLD cx-K.Pneumonia- poth Pab S Now on Ceftriaxone IV-S Code(s): A41.9 - SEPSIS, UNSPECIFIED ORGANISM (6) Hypokalemia due to loss of potassium Assessment/Plan: Replete potassium Ptoday K is 3.7-resolved. Code(s): E87.6 - HYPOKALEMIA
[2017-06-21] MEDS: DABIGATRAN ETEXILATE MESYLATE 150 MG CAPSULE PO SCH ×2 (14:12→22:19)
[2017-06-21] MEDS: D5-1/2NS+40 MEQ KCL - 40 MEQ/1,000 ML INFUS.BAG IV SCH (14:12)
--- NOTE | 2017-06-21 15:54 | PN ---
Progress Note, Physician Chief Complaint: Pt is talkative; denies chest pain, leg pain, shortness of breath. (When I returned to his room 10 minutes later, pb did not remember me). 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 As per the patients daughter, in the last several days, the patient has become increasingly weak with progressively decreasing appetite. The daughter states her father was unable to walk secondary to weakness today The daughter states there was no syncope that was observed or reported by others. He was found to be febrile, cultures were sent. He cannot provide history is currently nonverbal, this is my first encounter with him. - Current Medication List Current Medications: Active Medications Atorvastatin Calcium (Lipitor -) 20 mg PO HS [facility] Last Admin: 06/20/17 21:53 Dose: 20 mg Cholecalciferol (Vitamin D3 -) 1,000 unit PO DAILY [facility] Last Admin: 06/21/17 09:08 Dose: 1,000 unit Colchicine (Colcrys -) 0.6 mg PO DAILY [facility] Last Admin: 06/21/17 09:09 Dose: 0.6 mg Dabigatran (Pradaxa -) 150 mg PO BID [facility] Last Admin: 06/21/17 14:12 Dose: 150 mg Docusate Sodium (Colace -) 100 mg PO DAILY [facility] Last Admin: 06/21/17 09:09 Dose: Not Given Donepezil HCl (Aricept -) 5 mg PO HS [facility] Last Admin: 06/20/17 21:52 Dose: 5 mg Folic Acid (Folic Acid -) 1 mg PO DAILY [facility] Last Admin: 06/21/17 09:09 Dose: 1 mg Furosemide (Lasix Injection -) 20 mg IVPUSH DAILY [facility] Last Admin: 06/21/17 09:09 Dose: 20 mg CEFTRIAXONE 1 G/50 ML PREMIX (Ceftriaxone 1 Gm-D5w Bag) 50 mls @ 100 mls/hr IVPB DAILY [facility] Last Admin: 06/21/17 09:08 Dose: 100 mls/hr Dextrose/Sodium Chloride (D5-1/2ns+40 Meq Kcl -) 40 meq in 1,000 mls @ 42 mls/ hr IV ASDIR [facility] Last Admin: 06/21/17 14:12 Dose: 42 mls/hr Lisinopril (Prinivil) 2.5 mg PO DAILY [facility] Last Admin: 06/21/17 09:08 Dose: 2.5 mg Magnesium Hydroxide (Milk Of Magnesia -) 30 ml PO DAILY [facility] Last Admin: 06/21/17 09:10 Dose: Not Given Magnesium Oxide (Mag-Ox -) 400 mg PO BID [facility] Last Admin: 06/21/17 09:09 Dose: 400 mg Metoprolol Succinate (Toprol Xl -) 50 mg PO DAILY [facility] Olanzapine (Zyprexa -) 2.5 mg PO HS [facility] Last Admin: 06/20/17 21:53 Dose: 2.5 mg Polyethylene Glycol (Miralax (For Daily Use) -) 17 gm PO BID [facility] Last Admin: 06/21/17 09:10 Dose: 17 grams Potassium Chloride (K-Dur -) 20 meq PO DAILY [facility] Last Admin: 06/21/17 09:08 Dose: 20 meq Senna/Docusate Sodium (Pericolace -) 1 tablet PO DAILY PRN PRN Reason: CONSTIPATION Silver Sulfadiazine (Silvadene -) 1 applic TP DAILY [facility] Last Admin: 06/21/17 09:10 Dose: 1 applic - Objective Vital Signs: Vital Signs Temperature 98.4 F 06/21/17 09:05 Pulse Rate 60 06/21/17 09:05 Respiratory Rate 17 06/21/17 09:05 Blood Pressure 118/56 06/21/17 09:05 O2 Sat by Pulse Oximetry (%) 96 06/21/17 09:00 Constitutional: Yes: Calm Eyes: Yes: WNL HENT: Yes: WNL Neck: Yes: WNL Cardiovascular: Yes: Pulse Irregular Respiratory: Yes: Regular Gastrointestinal: Yes: Soft ...Rectal Exam: Yes: Deferred Genitourinary: No: Anuria Musculoskeletal: Yes: Muscle Weakness Extremities: Yes: Cool Edema: No Peripheral Pulses WNL: No Peripheral Pulses: Left Doralis Pedis: 1+, Right Dorsalis Pedis: 1+ Integumentary: Yes: Other Wound/Incision: Yes: Open to air Neurological: Yes: Alert, Confusion, Weakness Psychiatric: Yes: Other (dementia; further abrupt change in mental status led to this admission) Labs: CBC, BMP 06/20/17 06:10 06/21/17 08:05 INR, PTT INR 1.71 (0.82-1.09) H D 06/16/17 23:38 Abnormal Lab Results 06/21/17 08:05 Carbon Dioxide 38 H Anion Gap 4 L BUN 22 H Calcium 8.1 L Problem List - Problems (1) Afib Assessment/Plan: 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 Pt had breakthrough VT on last ICD interrogation; EP MDs recommended pt have sotalol replaced by metoprolol ER 50 mg daily (systolic CHF; HTN; PAF; VT) and amiodarone. Discussed with Dr. Galeana. As pt has not had further shocks, and given the potential side effects of amiodarone, it will not be restarted at this time.Pt will be followed closely to ascertain need in the future for restarting the medication. Replete electrolytes (keep K 4-4.5, Mg 2-2.3, PO4 2.5-3.5). Would continue atorvastatin (and not restart simvastatin when pt leaves hospital , given risk of interaction with other medications at higher dose). Code(s): I48.91 - UNSPECIFIED ATRIAL FIBRILLATION Qualifiers: Atrial fibrillation type: paroxysmal Qualified Code(s): I48.0 - Paroxysmal atrial fibrillation (2) Alzheimer disease Code(s): G30.9 - ALZHEIMER'S DISEASE, UNSPECIFIED Qualifiers: Alzheimer's disease onset: unspecified onset (3) Bilateral lower extremity edema Code(s): R60.0 - LOCALIZED EDEMA (4) CHF (congestive heart failure), NYHA class III Code(s): I50.9 - HEART FAILURE, UNSPECIFIED Qualifiers: Congestive heart failure type: combined Congestive heart failure chronicity : acute on chronic Qualified Code(s): I50.43 - Acute on chronic combined systolic (congestive) and diastolic (congestive) heart failure (5) Failure to thrive in adult Code(s): R62.7 - ADULT FAILURE TO THRIVE (6) ICD (implantable cardioverter-defibrillator) in place Code(s): Z95.810 - PRESENCE OF AUTOMATIC (IMPLANTABLE) CARDIAC DEFIBRILLATOR (7) Pneumonia Code(s): J18.9 - PNEUMONIA, UNSPECIFIED ORGANISM Qualifiers: Pneumonia type: due to unspecified organism Laterality: right Lung location: lower lobe of lung Qualified Code(s): J18.1 - Lobar pneumonia, unspecified organism (8) UTI (urinary tract infection) Code(s): N39.0 - URINARY TRACT INFECTION, SITE NOT SPECIFIED (9) CAD (coronary artery disease) Code(s): I25.10 - ATHSCL HEART DISEASE OF [place] CORONARY ARTERY W/O ANG PCTRS Qualifiers: Coronary Disease-Associated Artery/Lesion type: bypass graft [place] vs. transplanted heart: [place] heart Associated angina: without angina Qualified Code(s): I25.810 - Atherosclerosis of coronary artery bypass graft(s) without angina pectoris (10) Cellulitis Code(s): L03.90 - CELLULITIS, UNSPECIFIED Qualifiers: Site of cellulitis of extremity: upper extremity Laterality: right (11) Hyperlipidemia Code(s): E78.5 - HYPERLIPIDEMIA, UNSPECIFIED (12) Multiple abrasions Code(s): T14.8 - OTHER INJURY OF UNSPECIFIED BODY REGION * DO NOT USE * (13) Ventricular tachyarrhythmia Code(s): I47.2 - VENTRICULAR TACHYCARDIA
[2017-06-21] MEDS ORDERED: SENNOSIDES/DOCUSATE COMBO (SENNA PLUS) TABLET (UD) PO PRN (19:39)
[2017-06-21] MEDS ORDERED: PT OWN MED DRAWER 7, Y5N ONE (20:40)
[2017-06-21] MEDS: DONEPEZIL HCL 5 MG TABLET (FP) PO SCH (22:19)
[2017-06-21] MEDS: OLANZapine 2.5 MG TABLET PO SCH (22:19)
[2017-06-21] MEDS: ATORVASTATIN CA 20 MG TABLET (FP) PO SCH (22:19)
[2017-06-22 07:55] LABS: ANION GAP 2 (8-16); BLOOD UREA NITROGEN 22 mg/dL (7-18); CALCIUM 7.8 mg/dL (8.5-10.1); CHLORIDE 102 mmol/L (98-107); CO2 39 mmol/L (21-32); CREATININE 0.9 mg/dL (0.7-1.3); GLUCOSE,RANDOM 103 mg/dL (74-106); POTASSIUM 3.7 mmol/L (3.5-5.1); SODIUM 143 mmol/L (136-145)
--- NOTE | 2017-06-22 08:12 | PN ---
Progress Note, Physician Chief Complaint: Awake, alert, NAD Uneventful night. 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 HX of VT and AICD placement. Previously found to have A.fib on Holter by Dr. Jones and after last discharge the pt was re- started on Pradaxa PO. Significant weight loss over the last year-w/u negative. Constipation-recent hospitalization at [facility]-EGD/Colonoscopy done-found rectal ulcer. Diverticulosis, Possible bladder lesion and hematuria. Seen by urology during last hospitalization. Advised f/u as outpatient. Pressure ulcers. Gallstones. - Current Medication List Current Medications: Active Medications Atorvastatin Calcium (Lipitor -) 20 mg PO HS [facility] Last Admin: 06/21/17 22:19 Dose: 20 mg Cholecalciferol (Vitamin D3 -) 1,000 unit PO DAILY [facility] Colchicine (Colcrys -) 0.6 mg PO DAILY [facility] Dabigatran (Pradaxa -) 150 mg PO BID [facility] Last Admin: 06/21/17 22:19 Dose: 150 mg Docusate Sodium (Colace -) 100 mg PO DAILY [facility] Donepezil HCl (Aricept -) 5 mg PO HS [facility] Last Admin: 06/21/17 22:19 Dose: 5 mg Folic Acid (Folic Acid -) 1 mg PO DAILY [facility] Furosemide (Lasix Injection -) 20 mg IVPUSH DAILY [facility] CEFTRIAXONE 1 G/50 ML PREMIX (Ceftriaxone 1 Gm-D5w Bag) 50 mls @ 100 mls/hr IVPB DAILY [facility] Last Admin: 06/21/17 09:08 Dose: 100 mls/hr Dextrose/Sodium Chloride (D5-1/2ns+40 Meq Kcl -) 40 meq in 1,000 mls @ 42 mls/ hr IV ASDIR [facility] Last Admin: 06/21/17 14:12 Dose: 42 mls/hr Lisinopril (Prinivil) 2.5 mg PO DAILY [facility] Last Admin: 06/21/17 09:08 Dose: 2.5 mg Magnesium Hydroxide (Milk Of Magnesia -) 30 ml PO DAILY [facility] Magnesium Oxide (Mag-Ox -) 400 mg PO BID [facility] Last Admin: 06/21/17 22:19 Dose: 400 mg Metoprolol Succinate (Toprol Xl -) 50 mg PO DAILY [facility] Olanzapine (Zyprexa -) 2.5 mg PO HS [facility] Last Admin: 06/21/17 22:19 Dose: 2.5 mg Polyethylene Glycol (Miralax (For Daily Use) -) 17 gm PO BID [facility] Last Admin: 06/21/17 22:19 Dose: 17 gm Potassium Chloride (K-Dur -) 20 meq PO DAILY [facility] Senna/Docusate Sodium (Pericolace -) 1 tablet PO DAILY PRN PRN Reason: CONSTIPATION Silver Sulfadiazine (Silvadene -) 1 applic TP DAILY [facility] - Objective Vital Signs: Vital Signs Temperature 97.4 F L 06/22/17 04:55 Pulse Rate 87 06/22/17 04:55 Respiratory Rate 20 06/22/17 04:55 Blood Pressure 149/64 06/22/17 04:55 O2 Sat by Pulse Oximetry (%) 94 L 06/21/17 21:00 Constitutional: Yes: No Distress, Calm Eyes: Yes: Conjunctiva Clear, EOM Intact HENT: Yes: Atraumatic, Normocephalic Neck: Yes: Supple, Trachea Midline. No: Decreased ROM Cardiovascular: Yes: Pulse Irregular Respiratory: Yes: Regular, On Nasal O2. No: Cough, Wheezes Gastrointestinal: Yes: Normal Bowel Sounds, Soft. No: Abdomen, Obese, Ascites, Palpable Mass, Rectal Bleeding, Tenderness, Tenderness, Epigastrium, Tenderness , Rebound, Vomiting ...Rectal Exam: Yes: Deferred Genitourinary: No: Anuria, Bladder Distention Breast(s): Yes: WNL Musculoskeletal: Yes: Muscle Weakness Extremities: No: Amputation, Calf Tenderness, Cold, Cyanosis Edema: No Peripheral Pulses WNL: No Integumentary: Yes: Skin Tear (left heel, sacrum, anterior shins) Neurological: Yes: Alert. No: Oriented, Aphasia, Dysarthria ...Motor Strength: WNL Psychiatric: Yes: Alert. No: Oriented, Agitated, Suicidal Ideation Labs: CBC, BMP 06/20/17 06:10 06/22/17 06:00 INR, PTT INR 1.71 (0.82-1.09) H D 06/16/17 23:38 Problem List - Problems (1) Pneumonia Assessment/Plan: CT c/w RLL infiltrate effusion, R/O PNA, r/o aspiration. IV ABX pulm consult. Hypotension now IV fluids. Code(s): J18.9 - PNEUMONIA, UNSPECIFIED ORGANISM Qualifiers: Pneumonia type: due to unspecified organism Laterality: right Lung location: lower lobe of lung Qualified Code(s): J18.1 - Lobar pneumonia, unspecified organism (2) CHF (congestive heart failure), NYHA class III Assessment/Plan: . Cardiology F/u appreciated. Follow volume status IV lasix, follow electrolytes Pt was D/C from Amiodarone, Sotalol. Now on Metoprolol BID AICD in place. Code(s): I50.9 - HEART FAILURE, UNSPECIFIED Qualifiers: Congestive heart failure type: combined Congestive heart failure chronicity : acute on chronic Qualified Code(s): I50.43 - Acute on chronic combined systolic (congestive) and diastolic (congestive) heart failure (3) Afib Assessment/Plan: Continue Pradaxa PO Code(s): I48.91 - UNSPECIFIED ATRIAL FIBRILLATION Qualifiers: Atrial fibrillation type: paroxysmal Qualified Code(s): I48.0 - Paroxysmal atrial fibrillation (4) Sepsis associated hypotension Assessment/Plan: Klebsiella sepsis due to UTI. UA cx-K.pneumonuae BLD cx-K.Pneumonia- poth Pab S Now on Ceftriaxone IV-S Code(s): A41.9 - SEPSIS, UNSPECIFIED ORGANISM
[2017-06-22] MEDS ORDERED: PT OWN MED DRAWER 7, Y5N ONE ×2 (09:43→21:54)
[2017-06-22] MEDS: CEFTRIAXONE 1 G/50 ML PREMIX 50 ML IVPB SCH (10:51)
[2017-06-22] MEDS: DOCUSATE SODIUM 100 MG CAPSULE (FP) PO SCH (10:52)
[2017-06-22] MEDS: POTASSIUM CHLORIDE TABS 20 MEQ TABLET.ER (FP) PO SCH (10:52)
[2017-06-22] MEDS: FOLIC ACID 1 MG TABLET (FP) PO SCH (10:52)
[2017-06-22] MEDS: COLCHICINE 0.6 MG TABLET (FP) PO SCH (10:52)
[2017-06-22] MEDS: DABIGATRAN ETEXILATE MESYLATE 150 MG CAPSULE PO SCH ×2 (10:53→22:00)
[2017-06-22] MEDS: FUROSEMIDE 40 MG/4 ML INJECTABLE VIAL IVPUSH SCH (10:53)
[2017-06-22] MEDS: MAGNESIUM HYDROX 2400MG/30ML ORAL SUSPENSION 30 ML CUP PO SCH (10:53)
[2017-06-22] MEDS: MAGNESIUM OXIDE 400 MG TABLET (FP) PO SCH ×2 (10:53→21:59)
[2017-06-22] MEDS: LISINOPRIL 5 MG TABLET (FP) PO SCH (10:54)
[2017-06-22] MEDS: SILVER SULFADIAZINE 1% TOP CREAM 50 GM JAR TP SCH (10:55)
[2017-06-22] MEDS: CHOLECALCIFEROL (VITAMIN D3) 1,000 UNIT TABLET (FP) PO SCH (10:55)
[2017-06-22] MEDS: METOPROLOL SUCCINATE 50 MG TAB.SR.24H (FP) PO SCH (10:55)
[2017-06-22] MEDS: POLYETHYLENE GLYCOL 3350 119 GM BTL PO SCH ×2 (10:56→22:00)
--- NOTE | 2017-06-22 12:27 | PN ---
Progress Note (short form) - Note Progress Note: PULMONARY Denies shortness of breath or chest pain. No fevers or chills. Last Vital Signs Temp Pulse Resp BP Pulse Ox 97.4 F L 87 20 149/64 94 L 06/22/17 04:55 06/22/17 04:55 06/22/17 04:55 06/22/17 04:55 06/21/17 21:00 Gen: NAD at rest Heart: RRR Lung: decreased breath sounds at the bases Abd: soft, nontender Ext: no edema CBC, BMP 06/20/17 06:10 06/22/17 06:00 Active Medications Atorvastatin Calcium (Lipitor -) 20 mg PO HS [facility] Last Admin: 06/21/17 22:19 Dose: 20 mg Cholecalciferol (Vitamin D3 -) 1,000 unit PO DAILY [facility] Last Admin: 06/22/17 10:55 Dose: 1,000 unit Colchicine (Colcrys -) 0.6 mg PO DAILY [facility] Last Admin: 06/22/17 10:52 Dose: 0.6 mg Dabigatran (Pradaxa -) 150 mg PO BID [facility] Last Admin: 06/22/17 10:53 Dose: 150 mg Docusate Sodium (Colace -) 100 mg PO DAILY [facility] Last Admin: 06/22/17 10:52 Dose: 100 mg Donepezil HCl (Aricept -) 5 mg PO HS [facility] Last Admin: 06/21/17 22:19 Dose: 5 mg Folic Acid (Folic Acid -) 1 mg PO DAILY [facility] Last Admin: 06/22/17 10:52 Dose: 1 mg Furosemide (Lasix Injection -) 20 mg IVPUSH DAILY [facility] Last Admin: 06/22/17 10:53 Dose: 20 mg CEFTRIAXONE 1 G/50 ML PREMIX (Ceftriaxone 1 Gm-D5w Bag) 50 mls @ 100 mls/hr IVPB DAILY [facility] Last Admin: 06/22/17 10:51 Dose: 100 mls/hr Dextrose/Sodium Chloride (D5-1/2ns+40 Meq Kcl -) 40 meq in 1,000 mls @ 42 mls/ hr IV ASDIR [facility] Last Admin: 06/21/17 14:12 Dose: 42 mls/hr Lisinopril (Prinivil) 2.5 mg PO DAILY [facility] Last Admin: 06/22/17 10:54 Dose: 2.5 mg Magnesium Hydroxide (Milk Of Magnesia -) 30 ml PO DAILY [facility] Last Admin: 06/22/17 10:53 Dose: 30 ml Magnesium Oxide (Mag-Ox -) 400 mg PO BID [facility] Last Admin: 06/22/17 10:53 Dose: 400 mg Metoprolol Succinate (Toprol Xl -) 50 mg PO DAILY [facility] Last Admin: 06/22/17 10:55 Dose: 50 mg Olanzapine (Zyprexa -) 2.5 mg PO HS [facility] Last Admin: 06/21/17 22:19 Dose: 2.5 mg Polyethylene Glycol (Miralax (For Daily Use) -) 17 gm PO BID [facility] Last Admin: 06/22/17 10:56 Dose: 17 gm Potassium Chloride (K-Dur -) 20 meq PO DAILY [facility] Last Admin: 06/22/17 10:52 Dose: 20 meq Senna/Docusate Sodium (Pericolace -) 1 tablet PO DAILY PRN PRN Reason: CONSTIPATION Silver Sulfadiazine (Silvadene -) 1 applic TP DAILY [facility] Last Admin: 06/22/17 10:55 Dose: 1 applic A/P UTI Klebsiella Bacteremia Severe Sepsis improving Acute Kidney Injury improving Atrial Fibrillation Severe LV Systolic Dysfunction Mitral Regurgitation Pulmonary HTN CAD Dementia - continue antibiotics - IVF - monitor urine output, creatinine - O2 to keep SpO2 >90% - rate controlled - continue anticoagulation
--- NOTE | 2017-06-22 15:20 | PN ---
Progress Note, Physician Chief Complaint: Pt is anxious; he says his sister in law was visiting earlier; he wants to speak with her again, and is concerned about his children. 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 As per the patients daughter, in the last several days, the patient has become increasingly weak with progressively decreasing appetite. The daughter states her father was unable to walk secondary to weakness today The daughter states there was no syncope that was observed or reported by others. He was found to be febrile, cultures were sent. He cannot provide history is currently nonverbal, this is my first encounter with him. - Current Medication List Current Medications: Active Medications Atorvastatin Calcium (Lipitor -) 20 mg PO HS [facility] Last Admin: 06/21/17 22:19 Dose: 20 mg Cholecalciferol (Vitamin D3 -) 1,000 unit PO DAILY [facility] Last Admin: 06/22/17 10:55 Dose: 1,000 unit Colchicine (Colcrys -) 0.6 mg PO DAILY [facility] Last Admin: 06/22/17 10:52 Dose: 0.6 mg Dabigatran (Pradaxa -) 150 mg PO BID [facility] Last Admin: 06/22/17 10:53 Dose: 150 mg Docusate Sodium (Colace -) 100 mg PO DAILY [facility] Last Admin: 06/22/17 10:52 Dose: 100 mg Donepezil HCl (Aricept -) 5 mg PO HS [facility] Last Admin: 06/21/17 22:19 Dose: 5 mg Folic Acid (Folic Acid -) 1 mg PO DAILY [facility] Last Admin: 06/22/17 10:52 Dose: 1 mg Furosemide (Lasix Injection -) 20 mg IVPUSH DAILY [facility] Last Admin: 06/22/17 10:53 Dose: 20 mg CEFTRIAXONE 1 G/50 ML PREMIX (Ceftriaxone 1 Gm-D5w Bag) 50 mls @ 100 mls/hr IVPB DAILY [facility] Last Admin: 06/22/17 10:51 Dose: 100 mls/hr Dextrose/Sodium Chloride (D5-1/2ns+40 Meq Kcl -) 40 meq in 1,000 mls @ 42 mls/ hr IV ASDIR [facility] Last Admin: 06/21/17 14:12 Dose: 42 mls/hr Lisinopril (Prinivil) 2.5 mg PO DAILY [facility] Last Admin: 06/22/17 10:54 Dose: 2.5 mg Magnesium Hydroxide (Milk Of Magnesia -) 30 ml PO DAILY [facility] Last Admin: 06/22/17 10:53 Dose: 30 ml Magnesium Oxide (Mag-Ox -) 400 mg PO BID [facility] Last Admin: 06/22/17 10:53 Dose: 400 mg Metoprolol Succinate (Toprol Xl -) 50 mg PO DAILY [facility] Last Admin: 06/22/17 10:55 Dose: 50 mg Olanzapine (Zyprexa -) 2.5 mg PO HS [facility] Last Admin: 06/21/17 22:19 Dose: 2.5 mg Polyethylene Glycol (Miralax (For Daily Use) -) 17 gm PO BID [facility] Last Admin: 06/22/17 10:56 Dose: 17 gm Potassium Chloride (K-Dur -) 20 meq PO DAILY [facility] Last Admin: 06/22/17 10:52 Dose: 20 meq Senna/Docusate Sodium (Pericolace -) 1 tablet PO DAILY PRN PRN Reason: CONSTIPATION Silver Sulfadiazine (Silvadene -) 1 applic TP DAILY [facility] Last Admin: 06/22/17 10:55 Dose: 1 applic - Objective Vital Signs: Vital Signs Temperature 98.2 F 06/22/17 13:23 Pulse Rate 62 06/22/17 13:23 Respiratory Rate 16 06/22/17 13:23 Blood Pressure 113/57 06/22/17 13:23 O2 Sat by Pulse Oximetry (%) 94 L 06/22/17 09:00 Constitutional: Yes: Anxious Eyes: Yes: WNL HENT: Yes: WNL Neck: Yes: WNL Cardiovascular: Yes: Pulse Irregular Respiratory: Yes: Diminished Gastrointestinal: Yes: Soft ...Rectal Exam: Yes: Deferred Genitourinary: No: Anuria Musculoskeletal: Yes: Muscle Weakness Extremities: Yes: Cool Edema: No Peripheral Pulses WNL: No Peripheral Pulses: Left Doralis Pedis: 1+, Right Dorsalis Pedis: 1+ Integumentary: Yes: Skin Tear, Other Wound/Incision: Yes: Open to air Neurological: Yes: Confusion, Weakness Psychiatric: Yes: Other (dementia) Labs: CBC, BMP 06/20/17 06:10 06/22/17 06:00 INR, PTT INR 1.71 (0.82-1.09) H D 06/16/17 23:38 Laboratory Results - last 24 hr 06/22/17 06/22/17 06:00 06:00 Sodium 143 Potassium 3.7 Chloride 102 Carbon Dioxide 39 H Anion Gap 2 L BUN 22 H Creatinine 0.9 Random Glucose 103 Calcium 7.8 L Magnesium 1.9 Problem List - Problems (1) Afib Assessment/Plan: Replete electrolytes (keep K 4-4.5, Mg 2-2.3, PO4 2.5-3.5).Continue metoprolol ER. Continue Pradaxa. Code(s): I48.91 - UNSPECIFIED ATRIAL FIBRILLATION Qualifiers: Atrial fibrillation type: paroxysmal Qualified Code(s): I48.0 - Paroxysmal atrial fibrillation (2) Alzheimer disease Code(s): G30.9 - ALZHEIMER'S DISEASE, UNSPECIFIED Qualifiers: Alzheimer's disease onset: unspecified onset (3) Failure to thrive in adult Code(s): R62.7 - ADULT FAILURE TO THRIVE (4) ICD (implantable cardioverter-defibrillator) in place Code(s): Z95.810 - PRESENCE OF AUTOMATIC (IMPLANTABLE) CARDIAC DEFIBRILLATOR (5) Pneumonia Code(s): J18.9 - PNEUMONIA, UNSPECIFIED ORGANISM Qualifiers: Pneumonia type: due to unspecified organism Laterality: right Lung location: lower lobe of lung Qualified Code(s): J18.1 - Lobar pneumonia, unspecified organism (6) UTI (urinary tract infection) Code(s): N39.0 - URINARY TRACT INFECTION, SITE NOT SPECIFIED (7) CAD (coronary artery disease) Code(s): I25.10 - ATHSCL HEART DISEASE OF [place] CORONARY ARTERY W/O ANG PCTRS Qualifiers: Coronary Disease-Associated Artery/Lesion type: bypass graft [place] vs. transplanted heart: [place] heart Associated angina: without angina Qualified Code(s): I25.810 - Atherosclerosis of coronary artery bypass graft(s) without angina pectoris (8) Cellulitis Code(s): L03.90 - CELLULITIS, UNSPECIFIED Qualifiers: Site of cellulitis of extremity: upper extremity Laterality: right (9) Hyperlipidemia Code(s): E78.5 - HYPERLIPIDEMIA, UNSPECIFIED (10) Ventricular tachyarrhythmia Assessment/Plan: On metoprolol ER; on ACEI for systolic CHF. Consider restart amiodarone if VT refractory to present regimen. Code(s): I47.2 - VENTRICULAR TACHYCARDIA (11) Multiple abrasions Assessment/Plan: f/u with reuben GONCALVES Code(s): T14.8 - OTHER INJURY OF UNSPECIFIED BODY REGION * DO NOT USE * (12) Hypokalemia Code(s): E87.6 - HYPOKALEMIA (13) Hypokalemia Assessment/Plan: f/u all electrolytes. Code(s): E87.6 - HYPOKALEMIA (14) Acute on chronic systolic (congestive) heart failure Assessment/Plan: on metoprolol, lisinopril. On furosemide. F/u BUN/Cr, electrolytes, daily weight, Is and Os. Consider spiornolactone after optimization of above regimen. F/u TSH. Code(s): I50.23 - ACUTE ON CHRONIC SYSTOLIC (CONGESTIVE) HEART FAILURE
[2017-06-22] MEDS: D5-1/2NS+40 MEQ KCL - 40 MEQ/1,000 ML INFUS.BAG IV SCH (21:52)
[2017-06-22] MEDS: OLANZapine 2.5 MG TABLET PO SCH (21:59)
[2017-06-22] MEDS: ATORVASTATIN CA 20 MG TABLET (FP) PO SCH (21:59)
[2017-06-22] MEDS: DONEPEZIL HCL 5 MG TABLET (FP) PO SCH (21:59)
[2017-06-23] MEDS: FUROSEMIDE 40 MG/4 ML INJECTABLE VIAL IVPUSH SCH (09:35)
--- NOTE | 2017-06-23 09:39 | PN ---
Progress Note, Physician Chief Complaint: remains more alert than on presentation - Current Medication List Current Medications: Active Medications Atorvastatin Calcium (Lipitor -) 20 mg PO HS [facility] Last Admin: 06/22/17 21:59 Dose: 20 mg Cholecalciferol (Vitamin D3 -) 1,000 unit PO DAILY [facility] Last Admin: 06/22/17 10:55 Dose: 1,000 unit Colchicine (Colcrys -) 0.6 mg PO DAILY [facility] Last Admin: 06/22/17 10:52 Dose: 0.6 mg Dabigatran (Pradaxa -) 150 mg PO BID [facility] Last Admin: 06/22/17 22:00 Dose: 150 mg Docusate Sodium (Colace -) 100 mg PO DAILY [facility] Last Admin: 06/22/17 10:52 Dose: 100 mg Donepezil HCl (Aricept -) 5 mg PO HS [facility] Last Admin: 06/22/17 21:59 Dose: 5 mg Folic Acid (Folic Acid -) 1 mg PO DAILY [facility] Last Admin: 06/22/17 10:52 Dose: 1 mg Furosemide (Lasix Injection -) 20 mg IVPUSH DAILY [facility] Last Admin: 06/22/17 10:53 Dose: 20 mg CEFTRIAXONE 1 G/50 ML PREMIX (Ceftriaxone 1 Gm-D5w Bag) 50 mls @ 100 mls/hr IVPB DAILY [facility] Last Admin: 06/22/17 10:51 Dose: 100 mls/hr Dextrose/Sodium Chloride (D5-1/2ns+40 Meq Kcl -) 40 meq in 1,000 mls @ 42 mls/ hr IV ASDIR [facility] Last Admin: 06/22/17 21:52 Dose: Not Given Lisinopril (Prinivil) 2.5 mg PO DAILY [facility] Last Admin: 06/22/17 10:54 Dose: 2.5 mg Magnesium Hydroxide (Milk Of Magnesia -) 30 ml PO DAILY [facility] Last Admin: 06/22/17 10:53 Dose: 30 ml Magnesium Oxide (Mag-Ox -) 400 mg PO BID [facility] Last Admin: 06/22/17 21:59 Dose: 400 mg Metoprolol Succinate (Toprol Xl -) 50 mg PO DAILY [facility] Last Admin: 06/22/17 10:55 Dose: 50 mg Olanzapine (Zyprexa -) 2.5 mg PO HS [facility] Last Admin: 06/22/17 21:59 Dose: 2.5 mg Polyethylene Glycol (Miralax (For Daily Use) -) 17 gm PO BID [facility] Last Admin: 06/22/17 22:00 Dose: 17 gm Potassium Chloride (K-Dur -) 20 meq PO DAILY [facility] Last Admin: 06/22/17 10:52 Dose: 20 meq Senna/Docusate Sodium (Pericolace -) 1 tablet PO DAILY PRN PRN Reason: CONSTIPATION Silver Sulfadiazine (Silvadene -) 1 applic TP DAILY [facility] Last Admin: 06/22/17 10:55 Dose: 1 applic - Objective Vital Signs: Vital Signs Temperature 97.5 F L 06/23/17 06:00 Pulse Rate 56 L 06/23/17 06:00 Respiratory Rate 18 06/23/17 06:00 Blood Pressure 113/49 06/23/17 06:00 O2 Sat by Pulse Oximetry (%) 94 L 06/22/17 21:00 Constitutional: Yes: No Distress, Calm Cardiovascular: Yes: Pulse Irregular Respiratory: Yes: CTA Bilaterally Gastrointestinal: Yes: Soft Edema: No Neurological: Yes: Alert, Oriented Labs: CBC, BMP 06/20/17 06:10 06/22/17 06:00 INR, PTT INR 1.71 (0.82-1.09) H D 06/16/17 23:38 Microbiology 06/17/17 02:20 Urine - Urine Clean Catch Urine Culture - Final Klebsiella Pneumoniae 06/16/17 23:38 Blood - Peripheral Venous Blood Culture - Final Klebsiella Pneumoniae 06/16/17 23:38 Blood - Peripheral Venous Blood Culture - Final Klebsiella Pneumoniae Problem List - Problems (1) Failure to thrive in adult Code(s): R62.7 - ADULT FAILURE TO THRIVE (2) Cellulitis Code(s): L03.90 - CELLULITIS, UNSPECIFIED Qualifiers: Site of cellulitis of extremity: upper extremity Laterality: right (3) CHF (congestive heart failure) Code(s): I50.9 - HEART FAILURE, UNSPECIFIED Qualifiers: Congestive heart failure type: unspecified congestive heart failure type Congestive heart failure chronicity: unspecified congestive heart failure chronicity Qualified Code(s): I50.9 - Heart failure, unspecified (4) ICD (implantable cardioverter-defibrillator) in place Code(s): Z95.810 - PRESENCE OF AUTOMATIC (IMPLANTABLE) CARDIAC DEFIBRILLATOR (5) Afib Code(s): I48.91 - UNSPECIFIED ATRIAL FIBRILLATION Qualifiers: Atrial fibrillation type: paroxysmal Qualified Code(s): I48.0 - Paroxysmal atrial fibrillation (6) Alzheimer disease Code(s): G30.9 - ALZHEIMER'S DISEASE, UNSPECIFIED Qualifiers: Alzheimer's disease onset: unspecified onset Assessment/Plan Problem List - Problems (1) Afib Assessment/Plan: -Continue metoprolol ER. -Continue Pradaxa. Code(s): I48.91 - UNSPECIFIED ATRIAL FIBRILLATION Qualifiers: Atrial fibrillation type: paroxysmal Qualified Code(s): I48.0 - Paroxysmal atrial fibrillation (2) ICD (implantable cardioverter-defibrillator) in place Code(s): Z95.810 - PRESENCE OF AUTOMATIC (IMPLANTABLE) CARDIAC DEFIBRILLATOR -Routine interrogation as outpatient (3) Pneumonia -Rx as per PMD Code(s): J18.9 - PNEUMONIA, UNSPECIFIED ORGANISM Qualifiers: Pneumonia type: due to unspecified organism Laterality: right Lung location: lower lobe of lung Qualified Code(s): J18.1 - Lobar pneumonia, unspecified organism (4) UTI (urinary tract infection) -Rx as per PMD Code(s): N39.0 - URINARY TRACT INFECTION, SITE NOT SPECIFIED (5) CAD (coronary artery disease) Code(s): I25.10 - ATHSCL HEART DISEASE OF [place] CORONARY ARTERY W/O ANG PCTRS Qualifiers: Coronary Disease-Associated Artery/Lesion type: bypass graft [place] vs. transplanted heart: [place] heart Associated angina: without angina Qualified Code(s): I25.810 - Atherosclerosis of coronary artery bypass graft(s) without angina pectoris (6) Ventricular tachyarrhythmia Assessment/Plan: On metoprolol ER; on ACEI for systolic CHF. Code(s): I47.2 - VENTRICULAR TACHYCARDIA (7) Acute on chronic systolic (congestive) heart failure Assessment/Plan: on metoprolol, lisinopril. On furosemide. F/u BUN/Cr, electrolytes, daily weight, Is and Os. Consider spiornolactone after optimization of above regimen. Code(s): I50.23 - ACUTE ON CHRONIC SYSTOLIC (CONGESTIVE) HEART FAILURE
[2017-06-23] MEDS: MAGNESIUM OXIDE 400 MG TABLET (FP) PO SCH ×2 (09:40→23:02)
[2017-06-23] MEDS: METOPROLOL SUCCINATE 50 MG TAB.SR.24H (FP) PO SCH (09:40)
[2017-06-23] MEDS: DOCUSATE SODIUM 100 MG CAPSULE (FP) PO SCH (09:40)
[2017-06-23] MEDS: CHOLECALCIFEROL (VITAMIN D3) 1,000 UNIT TABLET (FP) PO SCH (09:40)
[2017-06-23] MEDS: POTASSIUM CHLORIDE TABS 20 MEQ TABLET.ER (FP) PO SCH (09:40)
[2017-06-23] MEDS: COLCHICINE 0.6 MG TABLET (FP) PO SCH (09:46)
[2017-06-23] MEDS: CEFTRIAXONE 1 G/50 ML PREMIX 50 ML IVPB SCH (09:46)
[2017-06-23] MEDS: FOLIC ACID 1 MG TABLET (FP) PO SCH (09:46)
[2017-06-23] MEDS: LISINOPRIL 5 MG TABLET (FP) PO SCH (09:47)
[2017-06-23] MEDS: DABIGATRAN ETEXILATE MESYLATE 150 MG CAPSULE PO SCH ×2 (09:47→23:02)
[2017-06-23] MEDS: MAGNESIUM HYDROX 2400MG/30ML ORAL SUSPENSION 30 ML CUP PO SCH (09:47)
[2017-06-23] MEDS: POLYETHYLENE GLYCOL 3350 119 GM BTL PO SCH ×2 (09:47→23:02)
[2017-06-23] MEDS: SILVER SULFADIAZINE 1% TOP CREAM 50 GM JAR TP SCH (09:48)
[2017-06-23] MEDS ORDERED: LORazepam 2 MG/ML SDV VIAL IVPB ONE (11:00)
[2017-06-23] MEDS: D5-1/2NS+40 MEQ KCL - 40 MEQ/1,000 ML INFUS.BAG IV SCH (11:13)
--- NOTE | 2017-06-23 11:28 | PN ---
Progress Note, Physician Chief Complaint: Occasionally agitated, confused. No respiratory distress or fevers. 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 HX of VT and AICD placement. Previously found to have A.fib on Holter by Dr. Jones and after last discharge the pt was re- started on Pradaxa PO. Significant weight loss over the last year-w/u negative. Constipation-recent hospitalization at [facility]-EGD/Colonoscopy done-found rectal ulcer. Diverticulosis, Possible bladder lesion and hematuria. Seen by urology during last hospitalization. Advised f/u as outpatient. Pressure ulcers. Gallstones. - Current Medication List Current Medications: Active Medications Atorvastatin Calcium (Lipitor -) 20 mg PO HS [facility] Last Admin: 06/22/17 21:59 Dose: 20 mg Cholecalciferol (Vitamin D3 -) 1,000 unit PO DAILY [facility] Last Admin: 06/23/17 09:40 Dose: 1,000 unit Colchicine (Colcrys -) 0.6 mg PO DAILY [facility] Last Admin: 06/23/17 09:46 Dose: 0.6 mg Dabigatran (Pradaxa -) 150 mg PO BID [facility] Last Admin: 06/23/17 09:47 Dose: 150 mg Docusate Sodium (Colace -) 100 mg PO DAILY [facility] Last Admin: 06/23/17 09:40 Dose: Not Given Donepezil HCl (Aricept -) 5 mg PO HS [facility] Last Admin: 06/22/17 21:59 Dose: 5 mg Folic Acid (Folic Acid -) 1 mg PO DAILY [facility] Last Admin: 06/23/17 09:46 Dose: 1 mg Furosemide (Lasix Injection -) 20 mg IVPUSH DAILY [facility] Last Admin: 06/23/17 09:35 Dose: 20 mg Dextrose/Sodium Chloride (D5-1/2ns+40 Meq Kcl -) 40 meq in 1,000 mls @ 42 mls/ hr IV ASDIR [facility] Last Admin: 06/23/17 11:13 Dose: 42 mls/hr Lisinopril (Prinivil) 2.5 mg PO DAILY [facility] Last Admin: 06/23/17 09:47 Dose: 2.5 mg Magnesium Hydroxide (Milk Of Magnesia -) 30 ml PO DAILY [facility] Last Admin: 06/23/17 09:47 Dose: Not Given Magnesium Oxide (Mag-Ox -) 400 mg PO BID [facility] Last Admin: 06/23/17 09:40 Dose: 400 mg Metoprolol Succinate (Toprol Xl -) 50 mg PO DAILY [facility] Last Admin: 06/23/17 09:40 Dose: 50 mg Olanzapine (Zyprexa -) 2.5 mg PO HS [facility] Last Admin: 06/22/17 21:59 Dose: 2.5 mg Polyethylene Glycol (Miralax (For Daily Use) -) 17 gm PO BID [facility] Last Admin: 06/23/17 09:47 Dose: Not Given Potassium Chloride (K-Dur -) 20 meq PO DAILY [facility] Last Admin: 06/23/17 09:40 Dose: 20 meq Senna/Docusate Sodium (Pericolace -) 1 tablet PO DAILY PRN PRN Reason: CONSTIPATION Silver Sulfadiazine (Silvadene -) 1 applic TP DAILY [facility] Last Admin: 06/23/17 09:48 Dose: 1 applic - Objective Vital Signs: Vital Signs Temperature 97.5 F L 06/23/17 06:00 Pulse Rate 56 L 06/23/17 06:00 Respiratory Rate 18 06/23/17 06:00 Blood Pressure 113/49 06/23/17 06:00 O2 Sat by Pulse Oximetry (%) 94 L 06/22/17 21:00 Constitutional: Yes: No Distress, Anxious Eyes: Yes: Conjunctiva Clear, EOM Intact HENT: Yes: Atraumatic, Normocephalic Neck: Yes: Supple, Trachea Midline. No: Rigid, Tenderness, Thyromegaly Cardiovascular: Yes: Pulse Irregular, S1, S2. No: JVD, Murmur Respiratory: Yes: Regular, CTA Bilaterally. No: Cough Gastrointestinal: Yes: Normal Bowel Sounds, Soft. No: Abdomen, Obese ...Rectal Exam: Yes: Deferred Genitourinary: No: Anuria, Bladder Distention Breast(s): Yes: WNL Musculoskeletal: Yes: Muscle Weakness Extremities: No: Amputation, Calf Tenderness, Cold, Cyanosis Edema: No Peripheral Pulses WNL: No Wound/Incision: Yes: Other (Heels, sacrum Anterior shins.) Psychiatric: Yes: Alert, Agitated (occasionally). No: Oriented Labs: CBC, BMP 06/20/17 06:10 06/22/17 06:00 INR, PTT INR 1.71 (0.82-1.09) H D 12/19/17 23:38 Problem List - Problems (1) Pneumonia Assessment/Plan: CT c/w RLL infiltrate effusion, R/O PNA, r/o aspiration. IV ABX pulm consult. Hypotension now IV fluids. Code(s): J18.9 - PNEUMONIA, UNSPECIFIED ORGANISM Qualifiers: Pneumonia type: due to unspecified organism Laterality: right Lung location: lower lobe of lung Qualified Code(s): J18.1 - Lobar pneumonia, unspecified organism (2) CHF (congestive heart failure), NYHA class III Assessment/Plan: . Cardiology F/u appreciated. Follow volume status IV lasix, follow electrolytes Pt was D/C from Amiodarone, Sotalol. Now on Metoprolol BID AICD in place. Code(s): I50.9 - HEART FAILURE, UNSPECIFIED Qualifiers: Congestive heart failure type: combined Congestive heart failure chronicity : acute on chronic Qualified Code(s): I50.43 - Acute on chronic combined systolic (congestive) and diastolic (congestive) heart failure (3) Afib Assessment/Plan: Continue Pradaxa PO Code(s): I48.91 - UNSPECIFIED ATRIAL FIBRILLATION Qualifiers: Atrial fibrillation type: paroxysmal Qualified Code(s): I48.0 - Paroxysmal atrial fibrillation (4) Sepsis associated hypotension Assessment/Plan: Klebsiella sepsis due to UTI. UA cx-K.pneumonuae BLD cx-K.Pneumonia- poth Pab S Now on Ceftriaxone IV-S Code(s): A41.9 - SEPSIS, UNSPECIFIED ORGANISM
[2017-06-23] MEDS ORDERED: LORazepam 2 MG/ML SDV VIAL IVPUSH PRN (20:24)
[2017-06-23] MEDS: ATORVASTATIN CA 20 MG TABLET (FP) PO SCH (23:02)
[2017-06-23] MEDS: DONEPEZIL HCL 5 MG TABLET (FP) PO SCH (23:02)
[2017-06-23] MEDS: OLANZapine 2.5 MG TABLET PO SCH (23:02)
--- NOTE | 2017-06-24 07:53 | PN ---
Progress Note (short form) - Note Progress Note: Uneventful night. Now comfortable in bed, confused. Vital Signs Temp 98 F 06/24/17 05:42 Pulse 66 06/24/17 05:42 Resp 20 06/24/17 05:42 BP 93/67 06/24/17 05:42 Pulse Ox 97 06/23/17 21:00 Intake & Output 06/23/17 06/23/17 06/24/17 11:59 23:59 11:59 Intake Total 294 964 465 Output Total 50 Balance 294 914 465 Weight 159 lb 3.2 oz Intake: IV 294 464 465 D5-1/2NS+40 MEQ KCL - 40 294 464 465 meq In 1,000 ml @ 42 mls/ hr IV ASDIR [facility]AS[facility] Rx#: [id number] Oral 500 Output: Urine 50 Void 50 Other: Voiding Method Incontinent Incontinent Incontinent # Unmeasured Voids Void 2 Bowel Movement Yes # Bowel Movements 2 Weight Measurement Method Patient Lift Scale Neck-no JVD Lungs are Clear. Heart s1s2 irregular. Palpable AICD Ext-no CCE Abdome soft, NT Current Active Problems Problem Status Onset Acute on chronic systolic (congestive) heart failure Acute Afib Acute Alzheimer disease Acute Failure to thrive in adult Acute Gram negative sepsis Acute Gram-negative bacteremia Acute Hypokalemia Acute ICD (implantable cardioverter-defibrillator) in place Acute Pneumonia Acute Pneumonia Acute Pneumonia Acute Sepsis Acute Sepsis associated hypotension Acute UTI (urinary tract infection) Acute UTI (urinary tract infection) Acute Plan D/C planning-SNF discussed with the family. Short course of PO Abx Rehab for ambulation and strengthening. Problem List - Problems (1) Pneumonia Code(s): J18.9 - PNEUMONIA, UNSPECIFIED ORGANISM Qualifiers: Pneumonia type: due to unspecified organism Laterality: right Lung location: lower lobe of lung Qualified Code(s): J18.1 - Lobar pneumonia, unspecified organism (2) CHF (congestive heart failure), NYHA class III Code(s): I50.9 - HEART FAILURE, UNSPECIFIED Qualifiers: Congestive heart failure type: combined Congestive heart failure chronicity : acute on chronic Qualified Code(s): I50.43 - Acute on chronic combined systolic (congestive) and diastolic (congestive) heart failure (3) Afib Code(s): I48.91 - UNSPECIFIED ATRIAL FIBRILLATION Qualifiers: Atrial fibrillation type: paroxysmal Qualified Code(s): I48.0 - Paroxysmal atrial fibrillation (4) Sepsis associated hypotension Code(s): A41.9 - SEPSIS, UNSPECIFIED ORGANISM
--- NOTE | 2017-06-24 08:00 | DS ---
Physical Examination Vital Signs: Vital Signs Temperature 98 F 06/24/17 05:42 Pulse Rate 66 06/24/17 05:42 Respiratory Rate 20 06/24/17 05:42 Blood Pressure 93/67 06/24/17 05:42 O2 Sat by Pulse Oximetry (%) 97 06/23/17 21:00 Constitutional: Yes: No Distress Eyes: Yes: Conjunctiva Clear, EOM Intact HENT: Yes: Atraumatic, Normocephalic Neck: Yes: Supple, Trachea Midline. No: Rigid, Tenderness, Thyromegaly Cardiovascular: Yes: Pulse Irregular, Murmur, S1, S2, Other (AICD). No: JVD Respiratory: Yes: Regular, CTA Bilaterally Gastrointestinal: Yes: Normal Bowel Sounds, Soft. No: Palpable Mass, Tenderness ...Rectal Exam: Yes: Deferred Renal/: No: Anuria Breast(s): Yes: WNL Musculoskeletal: Yes: WNL Extremities: Yes: WNL Edema: No Peripheral Pulses WNL: No Integumentary: Yes: WNL Neurological: Yes: Alert. No: Oriented, Aphasia Psychiatric: No: WNL Labs: CBC, BMP 06/20/17 06:10 Discharge Summary Reason For Visit: Klebsilla sepsis, uti Current Active Problems Acute on chronic systolic (congestive) heart failure (Acute) Afib (Acute) Alzheimer disease (Acute) Failure to thrive in adult (Acute) Gram negative sepsis (Acute) Gram-negative bacteremia (Acute) Hypokalemia (Acute) ICD (implantable cardioverter-defibrillator) in place (Acute) Pneumonia (Acute) Pneumonia (Acute) Pneumonia (Acute) Sepsis (Acute) Sepsis associated hypotension (Acute) UTI (urinary tract infection) (Acute) UTI (urinary tract infection) (Acute) Condition: Stable - Instructions Referrals: Guero Galeana MD [Primary Care Provider] - Disposition: [facility] - Home Medications Comprehensive Discharge Medication List: Ambulatory Orders Folic Acid - 1 mg PO DAILY 12/01/13 Ramipril [Altace] 10 mg PO DAILY 12/01/13 Simvastatin [Zocor -] 40 mg PO HS 12/01/13 Cholecalciferol (Vitamin D3) [Vitamin D3] 1,000 unit PO DAILY 02/12/14 Colchicine [Colcrys] 0.5 mg PO DAILY 06/10/16 Sennosides/Docusate Sodium [Senna Plus Tablet] 1 each PO ASDIR PRN 06/10/16 Polyethylene Glycol 3350 [Miralax 255 gm Btl -] 17 gm PO BID #1 bottle 06/16/16 Dabigatran Etexilate Mesylate [Pradaxa -] 150 mg PO BID 06/25/16 Donepezil HCl 5 mg PO DAILY 12/26/16 Finasteride 5 mg PO DAILY 12/26/16 Olanzapine 2.5 mg PO HS 12/26/16 Docusate Sodium [Colace -] 100 mg PO DAILY #30 capsule 01/22/17 Amiodarone HCl [Cordarone -] 200 mg PO DAILY 06/21/17 Colchicine [Mitigare] 0.6 mg PO DAILY 06/21/17 Dabigatran Etexilate Mesylate [Pradaxa -] 150 mg PO BID 06/21/17 Donepezil HCl 5 mg PO DAILY 06/21/17 Metoprolol Succinate 50 mg PO DAILY 06/21/17 Olanzapine 5 mg PO HS 06/21/17 Cephalexin Monohydrate [Keflex -] 500 mg PO BID capsule 06/24/17
[2017-06-24] MEDS: D5-1/2NS+40 MEQ KCL - 40 MEQ/1,000 ML INFUS.BAG IV SCH ×2 (08:01→15:57)
[2017-06-24 08:10] LABS: ANION GAP 2 (8-16); BLOOD UREA NITROGEN 22 mg/dL (7-18); CALCIUM 8.4 mg/dL (8.5-10.1); CHLORIDE 99 mmol/L (98-107); CO2 40 mmol/L (21-32); CREATININE 0.9 mg/dL (0.7-1.3); GLUCOSE,RANDOM 91 mg/dL (74-106); POTASSIUM 4.1 mmol/L (3.5-5.1); SODIUM 141 mmol/L (136-145)
--- NOTE | 2017-06-24 09:49 | PN ---
Progress Note, Physician Chief Complaint: Eating breakfast Appears comfortable Denies CP or SOB, remains alert. Plan is for discharge - Current Medication List Current Medications: Active Medications Atorvastatin Calcium (Lipitor -) 20 mg PO HS [facility] Last Admin: 06/23/17 23:02 Dose: 20 mg Cephalexin HCl (Keflex -) 500 mg PO BID [facility] Cholecalciferol (Vitamin D3 -) 1,000 unit PO DAILY [facility] Last Admin: 06/23/17 09:40 Dose: 1,000 unit Colchicine (Colcrys -) 0.6 mg PO DAILY [facility] Last Admin: 06/23/17 09:46 Dose: 0.6 mg Dabigatran (Pradaxa -) 150 mg PO BID [facility] Last Admin: 06/23/17 23:02 Dose: 150 mg Docusate Sodium (Colace -) 100 mg PO DAILY [facility] Last Admin: 06/23/17 09:40 Dose: Not Given Donepezil HCl (Aricept -) 5 mg PO [facility] Last Admin: 06/23/17 23:02 Dose: 5 mg Folic Acid (Folic Acid -) 1 mg PO DAILY [facility] Last Admin: 06/23/17 09:46 Dose: 1 mg Dextrose/Sodium Chloride (D5-1/2ns+40 Meq Kcl -) 40 meq in 1,000 mls @ 42 mls/ hr IV ASDIR [facility] Last Admin: 06/24/17 08:01 Dose: Not Given Lisinopril (Prinivil) 2.5 mg PO DAILY [facility] Last Admin: 06/23/17 09:47 Dose: 2.5 mg Magnesium Hydroxide (Milk Of Magnesia -) 30 ml PO DAILY [facility] Last Admin: 06/23/17 09:47 Dose: Not Given Magnesium Oxide (Mag-Ox -) 400 mg PO BID [facility] Last Admin: 06/23/17 23:02 Dose: 400 mg Metoprolol Succinate (Toprol Xl -) 50 mg PO DAILY [facility] Last Admin: 06/23/17 09:40 Dose: 50 mg Olanzapine (Zyprexa -) 2.5 mg PO HS [facility] Last Admin: 06/23/17 23:02 Dose: 2.5 mg Polyethylene Glycol (Miralax (For Daily Use) -) 17 gm PO BID [facility] Last Admin: 06/23/17 23:02 Dose: Not Given Potassium Chloride (K-Dur -) 20 meq PO DAILY [facility] Last Admin: 06/23/17 09:40 Dose: 20 meq Senna/Docusate Sodium (Pericolace -) 1 tablet PO DAILY PRN PRN Reason: CONSTIPATION Silver Sulfadiazine (Silvadene -) 1 applic TP DAILY [facility] Last Admin: 06/23/17 09:48 Dose: 1 applic - Objective Vital Signs: Vital Signs Temperature 98 F 06/24/17 05:42 Pulse Rate 66 06/24/17 05:42 Respiratory Rate 20 06/24/17 05:42 Blood Pressure 93/67 06/24/17 05:42 O2 Sat by Pulse Oximetry (%) 97 06/23/17 21:00 Constitutional: Yes: No Distress, Calm Cardiovascular: Yes: Regular Rate and Rhythm Respiratory: Yes: CTA Bilaterally (no wheezing or rales) Gastrointestinal: Yes: Soft (nontender) Edema: No Neurological: Yes: Alert, Oriented Labs: CBC, BMP 06/20/17 06:10 06/24/17 06:00 INR, PTT INR 1.71 (0.82-1.09) H D 06/16/17 23:38 Microbiology 06/17/17 02:20 Urine - Urine Clean Catch Urine Culture - Final Klebsiella Pneumoniae 06/16/17 23:38 Blood - Peripheral Venous Blood Culture - Final Klebsiella Pneumoniae 06/16/17 23:38 Blood - Peripheral Venous Blood Culture - Final Klebsiella Pneumoniae Problem List - Problems (1) Failure to thrive in adult Code(s): R62.7 - ADULT FAILURE TO THRIVE (2) Cellulitis Code(s): L03.90 - CELLULITIS, UNSPECIFIED Qualifiers: Site of cellulitis of extremity: upper extremity Laterality: right (3) CHF (congestive heart failure) Code(s): I50.9 - HEART FAILURE, UNSPECIFIED Qualifiers: Congestive heart failure type: unspecified congestive heart failure type Congestive heart failure chronicity: unspecified congestive heart failure chronicity Qualified Code(s): I50.9 - Heart failure, unspecified (4) ICD (implantable cardioverter-defibrillator) in place Code(s): Z95.810 - PRESENCE OF AUTOMATIC (IMPLANTABLE) CARDIAC DEFIBRILLATOR (5) Afib Code(s): I48.91 - UNSPECIFIED ATRIAL FIBRILLATION Qualifiers: Atrial fibrillation type: paroxysmal Qualified Code(s): I48.0 - Paroxysmal atrial fibrillation (6) Alzheimer disease Code(s): G30.9 - ALZHEIMER'S DISEASE, UNSPECIFIED Qualifiers: Alzheimer's disease onset: unspecified onset Assessment/Plan Problem List - Problems (1) Afib Assessment/Plan: -Continue metoprolol ER, taken off Sotalol after discussion w/ EP -Continue Pradaxa. Code(s): I48.91 - UNSPECIFIED ATRIAL FIBRILLATION Qualifiers: Atrial fibrillation type: paroxysmal Qualified Code(s): I48.0 - Paroxysmal atrial fibrillation (2) ICD (implantable cardioverter-defibrillator) in place Code(s): Z95.810 - PRESENCE OF AUTOMATIC (IMPLANTABLE) CARDIAC DEFIBRILLATOR -Routine interrogation as outpatient; f/u with EP (3) UTI (urinary tract infection) with bacteremia -Rx as per PMD Code(s): N39.0 - URINARY TRACT INFECTION, SITE NOT SPECIFIED (4) Ventricular tachyarrhythmia Assessment/Plan: On metoprolol ER, switched off Sotalol this admission after Dr. Villavicencio discussed with EP To be followed closely as outpatient Code(s): I47.2 - VENTRICULAR TACHYCARDIA (5) Acute on chronic systolic (congestive) heart failure Assessment/Plan: on metoprolol, lisinopril. On furosemide. Code(s): I50.23 - ACUTE ON CHRONIC SYSTOLIC (CONGESTIVE) HEART FAILURE
[2017-06-24] MEDS: POLYETHYLENE GLYCOL 3350 119 GM BTL PO SCH ×2 (10:39→21:05)
[2017-06-24] MEDS: MAGNESIUM HYDROX 2400MG/30ML ORAL SUSPENSION 30 ML CUP PO SCH (10:53)
[2017-06-24] MEDS: METOPROLOL SUCCINATE 50 MG TAB.SR.24H (FP) PO SCH (10:53)
[2017-06-24] MEDS: DOCUSATE SODIUM 100 MG CAPSULE (FP) PO SCH (10:54)
[2017-06-24] MEDS: FOLIC ACID 1 MG TABLET (FP) PO SCH (10:54)
[2017-06-24] MEDS: POTASSIUM CHLORIDE TABS 20 MEQ TABLET.ER (FP) PO SCH (10:54)
[2017-06-24] MEDS: LISINOPRIL 5 MG TABLET (FP) PO SCH (10:54)
[2017-06-24] MEDS: COLCHICINE 0.6 MG TABLET (FP) PO SCH (10:54)
[2017-06-24] MEDS: CHOLECALCIFEROL (VITAMIN D3) 1,000 UNIT TABLET (FP) PO SCH (10:54)
[2017-06-24] MEDS: CEPHALEXIN MONOHYDRATE 500 MG CAPSULE (UD) PO SCH ×2 (10:54→21:05)
[2017-06-24] MEDS: MAGNESIUM OXIDE 400 MG TABLET (FP) PO SCH ×2 (10:54→21:05)
[2017-06-24] MEDS: DABIGATRAN ETEXILATE MESYLATE 150 MG CAPSULE PO SCH ×2 (11:07→21:04)
[2017-06-24] MEDS: SILVER SULFADIAZINE 1% TOP CREAM 50 GM JAR TP SCH (11:08)
--- NOTE | 2017-06-24 11:16 | PN ---
Progress Note (short form) - Note Progress Note: PULMONARY VSS/AFEBRILE ANICTERIC CLEAR S1S2 BS+ NO EDEMA CHART/MEDS/LABS/IMAGES/MICRO REVIEWED UTI Klebsiella Bacteremia Severe Sepsis improved Acute Kidney Injury improved Atrial Fibrillation Severe LV Systolic Dysfunction Mitral Regurgitation Pulmonary HTN CAD Dementia agree with plans to continue treatment in SNF Juan R MARVIN MD Problem List - Problems (1) Pneumonia Code(s): J18.9 - PNEUMONIA, UNSPECIFIED ORGANISM (2) Afib Code(s): I48.91 - UNSPECIFIED ATRIAL FIBRILLATION Qualifiers: Atrial fibrillation type: paroxysmal Qualified Code(s): I48.0 - Paroxysmal atrial fibrillation (3) Altered mental status Code(s): R41.82 - ALTERED MENTAL STATUS, UNSPECIFIED Qualifiers: Altered mental status type: unspecified Qualified Code(s): R41.82 - Altered mental status, unspecified (4) Alzheimer disease Code(s): G30.9 - ALZHEIMER'S DISEASE, UNSPECIFIED Qualifiers: Alzheimer's disease onset: unspecified onset (5) Failure to thrive in adult Code(s): R62.7 - ADULT FAILURE TO THRIVE (6) Fever Code(s): R50.9 - FEVER, UNSPECIFIED Qualifiers: Fever type: due to other condition Qualified Code(s): R50.81 - Fever presenting with conditions classified elsewhere
[2017-06-24] MEDS: OLANZapine 2.5 MG TABLET PO SCH (21:04)
[2017-06-24] MEDS: DONEPEZIL HCL 5 MG TABLET (FP) PO SCH (21:05)
[2017-06-24] MEDS: ATORVASTATIN CA 20 MG TABLET (FP) PO SCH (21:05)
[2017-06-24] MEDS ORDERED: OLANZapine 2.5 MG TABLET PO ONE (23:15)
--- NOTE | 2017-06-25 08:48 | PN ---
Progress Note (short form) - Note Progress Note: Confused, occasionally sceeming. NAD, comfortable in bed Vital Signs Temp 97.7 F 06/25/17 06:00 Pulse 61 06/25/17 06:00 Resp 20 06/25/17 06:00 BP 105/58 06/25/17 06:00 Pulse Ox 96 06/24/17 21:00 Intake & Output 06/24/17 06/24/17 06/25/17 11:59 23:59 11:59 Intake Total 965 350 500 Balance 965 350 500 Weight 154 lb 3.2 oz 153 lb 6 oz Intake: IV 465 500 D5-1/2NS+40 MEQ KCL - 40 465 500 meq In 1,000 ml @ 42 mls/ hr IV ASDIR YASIR Rx#: [id number] Oral 500 350 Other: Voiding Method Incontinent Incontinent # Unmeasured Voids Void 1 2 Bowel Movement Yes Yes # Bowel Movements 1 2 Weight Measurement Method Patient Lift Scale Patient Lift Scale Neck-supple Lungs are Clear. Heart s1s2 irregular , AICD in place.Abdomen soft, NT Sxt-no CCE Healed anterior lopez wounds, heels tear.Moves well all extremities.Imp Current Active Problems Problem Status Onset Acute on chronic systolic (congestive) heart failure Acute Afib Acute Alzheimer disease Acute Failure to thrive in adult Acute Gram negative sepsis Acute Gram-negative bacteremia Acute Hypokalemia Acute ICD (implantable cardioverter-defibrillator) in place Acute Pneumonia Acute Pneumonia Acute Pneumonia Acute Sepsis Acute Sepsis associated hypotension Acute UTI (urinary tract infection) Acute UTI (urinary tract infection) Acute Plan PO ABX. Small doses of Ativan PRN delirium/agitation.SNF Problem List - Problems (1) Pneumonia Code(s): J18.9 - PNEUMONIA, UNSPECIFIED ORGANISM Qualifiers: Pneumonia type: due to unspecified organism Laterality: right Lung location: lower lobe of lung Qualified Code(s): J18.1 - Lobar pneumonia, unspecified organism (2) CHF (congestive heart failure), NYHA class III Code(s): I50.9 - HEART FAILURE, UNSPECIFIED Qualifiers: Congestive heart failure type: combined Congestive heart failure chronicity : acute on chronic Qualified Code(s): I50.43 - Acute on chronic combined systolic (congestive) and diastolic (congestive) heart failure (3) Afib Code(s): I48.91 - UNSPECIFIED ATRIAL FIBRILLATION Qualifiers: Atrial fibrillation type: paroxysmal Qualified Code(s): I48.0 - Paroxysmal atrial fibrillation (4) Sepsis associated hypotension Code(s): A41.9 - SEPSIS, UNSPECIFIED ORGANISM
[2017-06-25] MEDS: COLCHICINE 0.6 MG TABLET (FP) PO SCH (09:30)
[2017-06-25] MEDS: DABIGATRAN ETEXILATE MESYLATE 150 MG CAPSULE PO SCH ×2 (09:30→22:28)
[2017-06-25] MEDS: LISINOPRIL 5 MG TABLET (FP) PO SCH (09:30)
[2017-06-25] MEDS: FOLIC ACID 1 MG TABLET (FP) PO SCH (09:30)
[2017-06-25] MEDS: MAGNESIUM OXIDE 400 MG TABLET (FP) PO SCH ×2 (09:32→22:28)
[2017-06-25] MEDS: MAGNESIUM HYDROX 2400MG/30ML ORAL SUSPENSION 30 ML CUP PO SCH (09:32)
[2017-06-25] MEDS: POTASSIUM CHLORIDE TABS 20 MEQ TABLET.ER (FP) PO SCH (10:09)
[2017-06-25] MEDS: METOPROLOL SUCCINATE 50 MG TAB.SR.24H (FP) PO SCH (10:10)
[2017-06-25] MEDS: CHOLECALCIFEROL (VITAMIN D3) 1,000 UNIT TABLET (FP) PO SCH (10:10)
[2017-06-25] MEDS: SILVER SULFADIAZINE 1% TOP CREAM 50 GM JAR TP SCH (10:10)
[2017-06-25] MEDS: CEPHALEXIN MONOHYDRATE 500 MG CAPSULE (UD) PO SCH ×2 (10:10→22:30)
[2017-06-25] MEDS: LORazepam 2 MG/ML SDV VIAL IVPUSH PRN ×2 (10:42→22:07)
--- NOTE | 2017-06-25 11:19 | PN ---
Progress Note, Physician History of Present Illness: seen and examined today. yelling out before i entered room but then calm, confused. nad. comfortable, no new complaints. - Current Medication List Current Medications: Active Medications Atorvastatin Calcium (Lipitor -) 20 mg PO HS [facility] Last Admin: 06/24/17 21:05 Dose: 20 mg Cephalexin HCl (Keflex -) 500 mg PO BID [facility] Last Admin: 06/25/17 10:10 Dose: 500 mg Cholecalciferol (Vitamin D3 -) 1,000 unit PO DAILY [facility] Last Admin: 06/25/17 10:10 Dose: 1,000 unit Colchicine (Colcrys -) 0.6 mg PO DAILY [facility] Last Admin: 06/24/17 10:54 Dose: 0.6 mg Dabigatran (Pradaxa -) 150 mg PO BID [facility] Last Admin: 06/24/17 21:04 Dose: 150 mg Docusate Sodium (Colace -) 100 mg PO DAILY [facility] Last Admin: 06/24/17 10:54 Dose: 100 mg Donepezil HCl (Aricept -) 5 mg PO HS [facility] Last Admin: 06/24/17 21:05 Dose: 5 mg Folic Acid (Folic Acid -) 1 mg PO DAILY [facility] Last Admin: 06/24/17 10:54 Dose: 1 mg Dextrose/Sodium Chloride (D5-1/2ns+40 Meq Kcl -) 40 meq in 1,000 mls @ 42 mls/ hr IV ASDIR [facility] Last Admin: 06/24/17 15:57 Dose: 42 mls/hr Lisinopril (Prinivil) 2.5 mg PO DAILY [facility] Last Admin: 06/24/17 10:54 Dose: 2.5 mg Lorazepam (Ativan Injection -) 0.25 mg IVPUSH HS PRN Last Admin: 06/25/17 10:42 Dose: 0.25 mg Lorazepam (Ativan Injection -) 0.25 mg IVPUSH BID PRN PRN Reason: ANXIETY Magnesium Hydroxide (Milk Of Magnesia -) 30 ml PO DAILY [facility] Last Admin: 06/24/17 10:53 Dose: 30 ml Magnesium Oxide (Mag-Ox -) 400 mg PO BID [facility] Last Admin: 06/24/17 21:05 Dose: 400 mg Metoprolol Succinate (Toprol Xl -) 50 mg PO DAILY [facility] Last Admin: 06/25/17 10:10 Dose: 50 mg Olanzapine (Zyprexa -) 5 mg PO HS [facility] Polyethylene Glycol (Miralax (For Daily Use) -) 17 gm PO BID [facility] Last Admin: 06/24/17 21:05 Dose: Not Given Potassium Chloride (K-Dur -) 20 meq PO DAILY [facility] Last Admin: 06/25/17 10:09 Dose: 20 meq Senna/Docusate Sodium (Pericolace -) 1 tablet PO DAILY PRN PRN Reason: CONSTIPATION Silver Sulfadiazine (Silvadene -) 1 applic TP DAILY [facility] Last Admin: 06/24/17 11:08 Dose: 1 applic - Objective Vital Signs: Vital Signs Temperature 97.7 F 06/25/17 06:00 Pulse Rate 61 06/25/17 06:00 Respiratory Rate 20 06/25/17 06:00 Blood Pressure 105/58 06/25/17 06:00 O2 Sat by Pulse Oximetry (%) 96 06/24/17 21:00 Constitutional: Yes: No Distress, Calm Eyes: Yes: Conjunctiva Clear, EOM Intact HENT: Yes: Atraumatic, Normocephalic Neck: Yes: Supple, Trachea Midline Cardiovascular: Yes: Pulse Irregular, S1, S2. No: Regular Rate and Rhythm, Bradycardia, Tachycardia, Bruit, JVD, Gallop, Murmur, Rub, S3, S4, Varicosities Respiratory: Yes: Regular. No: Rales, Rhonchi, Wheezes Gastrointestinal: Yes: Normal Bowel Sounds, Soft. No: Distention, Tenderness Edema: No Peripheral Pulses WNL: Yes Neurological: Yes: Alert. No: Oriented Psychiatric: Yes: Alert. No: Oriented Labs: CBC, BMP 06/20/17 06:10 06/24/17 06:00 INR, PTT INR 1.71 (0.82-1.09) H D 06/16/17 23:38 - ....Imaging Chest X-ray: Report Reviewed, Image Reviewed EKG: Report Reviewed, Image Reviewed Other: Report Reviewed, Image Reviewed Assessment/Plan Afib-HR controlled -off Sotalol -cont Toprol XL 50mg daily -cont Pradaxa Acute on chronic systolic CHF-severe LV dysfunction s/p ICD, NSVT -currently euvolemic -echo reviewed, confirmed severe LV dysfunction -off Sotalol -cont Toprol, Lisinopril -not currently on Lasix -ICD follow up as outpatient
[2017-06-25] MEDS: POLYETHYLENE GLYCOL 3350 119 GM BTL PO SCH (22:22)
[2017-06-25] MEDS: D5-1/2NS+40 MEQ KCL - 40 MEQ/1,000 ML INFUS.BAG IV SCH (22:23)
[2017-06-25] MEDS ORDERED: PT OWN MED DRAWER 7, Y5N ONE (22:26)
[2017-06-25] MEDS: DONEPEZIL HCL 5 MG TABLET (FP) PO SCH (22:29)
[2017-06-25] MEDS: ATORVASTATIN CA 20 MG TABLET (FP) PO SCH (22:30)
[2017-06-26] MEDS: OLANZapine 5 MG TABLET PO SCH ×2 (00:32→23:24)
[2017-06-26] MEDS: DOCUSATE SODIUM 100 MG CAPSULE (FP) PO SCH ×2 (03:26→09:54)
[2017-06-26] MEDS: POLYETHYLENE GLYCOL 3350 119 GM BTL PO SCH ×3 (03:26→21:11)
[2017-06-26] MEDS ORDERED: PT OWN MED DRAWER 7, Y5N ONE ×2 (06:19→20:51)
[2017-06-26] MEDS: LORazepam 2 MG/ML SDV VIAL IVPUSH PRN ×2 (07:00→21:22)
--- NOTE | 2017-06-26 09:34 | PN ---
Progress Note, Physician Chief Complaint: Sedated in bed, NAD. 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 HX of VT and AICD placement. Previously found to have A.fib on Holter by Dr. Jones and after last discharge the pt was re- started on Pradaxa PO. Significant weight loss over the last year-w/u negative. Constipation-recent hospitalization at [facility]-EGD/Colonoscopy done-found rectal ulcer. Diverticulosis, Possible bladder lesion and hematuria. Seen by urology during last hospitalization. Advised f/u as outpatient. Pressure ulcers. Gallstones. - Current Medication List Current Medications: Active Medications Atorvastatin Calcium (Lipitor -) 20 mg PO HS [facility] Last Admin: 06/25/17 22:30 Dose: 20 mg Cephalexin HCl (Keflex -) 500 mg PO BID [facility] Last Admin: 06/25/17 22:30 Dose: 500 mg Cholecalciferol (Vitamin D3 -) 1,000 unit PO DAILY [facility] Last Admin: 06/25/17 10:10 Dose: 1,000 unit Colchicine (Colcrys -) 0.6 mg PO DAILY [facility] Last Admin: 06/24/17 10:54 Dose: 0.6 mg Dabigatran (Pradaxa -) 150 mg PO BID [facility] Last Admin: 06/25/17 22:28 Dose: 150 mg Docusate Sodium (Colace -) 100 mg PO DAILY [facility] Last Admin: 06/26/17 03:26 Dose: Not Given Donepezil HCl (Aricept -) 5 mg PO HS [facility] Last Admin: 06/25/17 22:29 Dose: 5 mg Folic Acid (Folic Acid -) 1 mg PO DAILY [facility] Last Admin: 06/24/17 10:54 Dose: 1 mg Dextrose/Sodium Chloride (D5-1/2ns+40 Meq Kcl -) 40 meq in 1,000 mls @ 42 mls/ hr IV ASDIR [facility] Last Admin: 06/25/17 22:23 Dose: Not Given Lisinopril (Prinivil) 2.5 mg PO DAILY [facility] Last Admin: 06/24/17 10:54 Dose: 2.5 mg Lorazepam (Ativan Injection -) 0.25 mg IVPUSH HS PRN Last Admin: 06/25/17 10:42 Dose: 0.25 mg Lorazepam (Ativan Injection -) 0.25 mg IVPUSH DAILY PRN PRN Reason: ANXIETY Magnesium Hydroxide (Milk Of Magnesia -) 30 ml PO DAILY [facility] Last Admin: 06/24/17 10:53 Dose: 30 ml Magnesium Oxide (Mag-Ox -) 400 mg PO BID [facility] Last Admin: 06/25/17 22:28 Dose: 400 mg Metoprolol Succinate (Toprol Xl -) 50 mg PO DAILY [facility] Last Admin: 06/25/17 10:10 Dose: 50 mg Olanzapine (Zyprexa -) 5 mg PO HS [facility] Last Admin: 06/26/17 00:32 Dose: Not Given Polyethylene Glycol (Miralax (For Daily Use) -) 17 gm PO BID [facility] Last Admin: 06/26/17 03:26 Dose: Not Given Potassium Chloride (K-Dur -) 20 meq PO DAILY [facility] Last Admin: 06/25/17 10:09 Dose: 20 meq Senna/Docusate Sodium (Pericolace -) 1 tablet PO DAILY PRN PRN Reason: CONSTIPATION Silver Sulfadiazine (Silvadene -) 1 applic TP DAILY [facility] Last Admin: 06/24/17 11:08 Dose: 1 applic - Objective Vital Signs: Vital Signs Temperature 97.7 F 06/26/17 06:54 Pulse Rate 60 06/26/17 06:54 Respiratory Rate 18 06/26/17 06:54 Blood Pressure 102/51 06/26/17 06:54 O2 Sat by Pulse Oximetry (%) 97 06/25/17 21:00 Constitutional: Yes: No Distress, Calm Eyes: Yes: Conjunctiva Clear, EOM Intact HENT: Yes: Atraumatic, Normocephalic Neck: Yes: Supple, Trachea Midline. No: Lymphadenopathy Cardiovascular: Yes: Pulse Irregular, Other (AICD) Respiratory: Yes: Regular, CTA Bilaterally Gastrointestinal: Yes: Normal Bowel Sounds, Soft. No: Abdomen, Obese ...Rectal Exam: Yes: Deferred Genitourinary: No: Anuria, Bladder Distention Musculoskeletal: No: Back Pain, Joint Stiffness Extremities: No: Amputation, Calf Tenderness, Cold Edema: No Peripheral Pulses WNL: No Wound/Incision: Yes: Clean/Dry Neurological: Yes: Alert. No: Oriented ...Motor Strength: WNL Psychiatric: Yes: Alert. No: Oriented, Agitated Labs: CBC, BMP 06/20/17 06:10 06/24/17 06:00 INR, PTT INR 1.71 (0.82-1.09) H D 06/16/17 23:38 Problem List - Problems (1) Pneumonia Assessment/Plan: CT c/w RLL infiltrate effusion, R/O PNA, r/o aspiration. IV ABX pulm consult. Hypotension now IV fluids. Code(s): J18.9 - PNEUMONIA, UNSPECIFIED ORGANISM Qualifiers: Pneumonia type: due to unspecified organism Laterality: right Lung location: lower lobe of lung Qualified Code(s): J18.1 - Lobar pneumonia, unspecified organism (2) CHF (congestive heart failure), NYHA class III Assessment/Plan: . Cardiology F/u appreciated. Follow volume status IV lasix, follow electrolytes Pt was D/C from Amiodarone, Sotalol. Now on Metoprolol BID AICD in place. Code(s): I50.9 - HEART FAILURE, UNSPECIFIED Qualifiers: Congestive heart failure type: combined Congestive heart failure chronicity : acute on chronic Qualified Code(s): I50.43 - Acute on chronic combined systolic (congestive) and diastolic (congestive) heart failure (3) Afib Assessment/Plan: Continue Pradaxa PO Code(s): I48.91 - UNSPECIFIED ATRIAL FIBRILLATION Qualifiers: Atrial fibrillation type: paroxysmal Qualified Code(s): I48.0 - Paroxysmal atrial fibrillation (4) Sepsis associated hypotension Assessment/Plan: Klebsiella sepsis due to UTI. UA cx-K.pneumonuae BLD cx-K.Pneumonia- poth Pab S Now on Ceftriaxone IV-S Code(s): A41.9 - SEPSIS, UNSPECIFIED ORGANISM
[2017-06-26] MEDS: DABIGATRAN ETEXILATE MESYLATE 150 MG CAPSULE PO SCH ×2 (09:47→21:11)
[2017-06-26] MEDS: LISINOPRIL 5 MG TABLET (FP) PO SCH (09:49)
[2017-06-26] MEDS: POTASSIUM CHLORIDE TABS 20 MEQ TABLET.ER (FP) PO SCH (09:50)
[2017-06-26] MEDS: METOPROLOL SUCCINATE 50 MG TAB.SR.24H (FP) PO SCH (09:50)
[2017-06-26] MEDS: MAGNESIUM OXIDE 400 MG TABLET (FP) PO SCH ×2 (09:50→21:11)
[2017-06-26] MEDS: CEPHALEXIN MONOHYDRATE 500 MG CAPSULE (UD) PO SCH ×2 (09:50→21:11)
[2017-06-26] MEDS: CHOLECALCIFEROL (VITAMIN D3) 1,000 UNIT TABLET (FP) PO SCH (09:50)
[2017-06-26] MEDS: FOLIC ACID 1 MG TABLET (FP) PO SCH (09:51)
[2017-06-26] MEDS: MAGNESIUM HYDROX 2400MG/30ML ORAL SUSPENSION 30 ML CUP PO SCH ×2 (09:51→09:53)
[2017-06-26] MEDS: COLCHICINE 0.6 MG TABLET (FP) PO SCH (09:52)
[2017-06-26] MEDS: SILVER SULFADIAZINE 1% TOP CREAM 50 GM JAR TP SCH (09:54)
[2017-06-26] MEDS: D5-1/2NS+40 MEQ KCL - 40 MEQ/1,000 ML INFUS.BAG IV SCH (17:48)
[2017-06-26] MEDS: DONEPEZIL HCL 5 MG TABLET (FP) PO SCH (21:11)
[2017-06-26] MEDS: ATORVASTATIN CA 20 MG TABLET (FP) PO SCH (23:24)
[2017-06-27] MEDS: LORazepam 2 MG/ML SDV VIAL IVPUSH PRN ×2 (06:22→22:14)
--- NOTE | 2017-06-27 08:35 | PN ---
Progress Note, Physician Chief Complaint: Awake, confused, NAD. 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 HX of VT and AICD placement. Previously found to have A.fib on Holter by Dr. Jones and after last discharge the pt was re- started on Pradaxa PO. Significant weight loss over the last year-w/u negative. Constipation-recent hospitalization at [facility]-EGD/Colonoscopy done-found rectal ulcer. Diverticulosis, Possible bladder lesion and hematuria. Seen by urology during last hospitalization. Advised f/u as outpatient. Pressure ulcers. Gallstones. - Current Medication List Current Medications: Active Medications Atorvastatin Calcium (Lipitor -) 20 mg PO HS [facility] Last Admin: 06/26/17 23:24 Dose: Not Given Cephalexin HCl (Keflex -) 500 mg PO BID [facility] Last Admin: 06/26/17 21:11 Dose: 500 mg Cholecalciferol (Vitamin D3 -) 1,000 unit PO DAILY [facility] Last Admin: 06/26/17 09:50 Dose: 1,000 unit Colchicine (Colcrys -) 0.6 mg PO DAILY [facility] Last Admin: 06/26/17 09:52 Dose: 0.6 mg Dabigatran (Pradaxa -) 150 mg PO BID [facility] Last Admin: 06/26/17 21:11 Dose: 150 mg Docusate Sodium (Colace -) 100 mg PO DAILY [facility] Last Admin: 06/26/17 09:54 Dose: Not Given Donepezil HCl (Aricept -) 5 mg PO HS [facility] Last Admin: 06/26/17 21:11 Dose: 5 mg Folic Acid (Folic Acid -) 1 mg PO DAILY [facility] Last Admin: 06/26/17 09:51 Dose: 1 mg Dextrose/Sodium Chloride (D5-1/2ns+40 Meq Kcl -) 40 meq in 1,000 mls @ 42 mls/ hr IV ASDIR [facility] Last Admin: 06/26/17 17:48 Dose: 42 mls/hr Lisinopril (Prinivil) 2.5 mg PO DAILY [facility] Last Admin: 06/26/17 09:49 Dose: 2.5 mg Lorazepam (Ativan Injection -) 0.25 mg IVPUSH HS PRN Last Admin: 06/26/17 21:22 Dose: 0.25 mg Lorazepam (Ativan Injection -) 0.25 mg IVPUSH DAILY PRN PRN Reason: ANXIETY Last Admin: 06/27/17 06:22 Dose: 0.25 mg Magnesium Hydroxide (Milk Of Magnesia -) 30 ml PO DAILY [facility] Last Admin: 06/26/17 09:51 Dose: Not Given Magnesium Oxide (Mag-Ox -) 400 mg PO BID [facility] Last Admin: 06/26/17 21:11 Dose: 400 mg Metoprolol Succinate (Toprol Xl -) 50 mg PO DAILY [facility] Last Admin: 06/26/17 09:50 Dose: 50 mg Olanzapine (Zyprexa -) 5 mg PO HS [facility] Last Admin: 06/26/17 23:24 Dose: Not Given Polyethylene Glycol (Miralax (For Daily Use) -) 17 gm PO BID [facility] Last Admin: 06/26/17 21:11 Dose: 17 gm Potassium Chloride (K-Dur -) 20 meq PO DAILY [facility] Last Admin: 06/26/17 09:50 Dose: 20 meq Senna/Docusate Sodium (Pericolace -) 1 tablet PO DAILY PRN PRN Reason: CONSTIPATION Silver Sulfadiazine (Silvadene -) 1 applic TP DAILY [facility] Last Admin: 06/26/17 09:54 Dose: 1 applic - Objective Vital Signs: Vital Signs Temperature 97.8 F 06/27/17 00:00 Pulse Rate 80 06/27/17 00:00 Respiratory Rate 22 06/27/17 00:00 Blood Pressure 119/62 06/27/17 00:00 O2 Sat by Pulse Oximetry (%) 100 06/26/17 21:00 Constitutional: Yes: No Distress, Anxious, Pallor, Thin Eyes: Yes: Conjunctiva Clear, EOM Intact, PERRL HENT: Yes: Atraumatic, Normocephalic. No: Drooling Neck: Yes: Supple, Trachea Midline. No: Lymphadenopathy Cardiovascular: Yes: Pulse Irregular, Murmur, S1, S2, Other (AICD). No: Bradycardia, Tachycardia, JVD Respiratory: Yes: Regular, CTA Bilaterally Gastrointestinal: Yes: Normal Bowel Sounds, Soft. No: Abdomen, Obese ...Rectal Exam: Yes: Deferred Genitourinary: No: Anuria, Bladder Distention Breast(s): Yes: WNL Musculoskeletal: Yes: WNL Extremities: Yes: WNL Edema: No Neurological: Yes: WNL ...Motor Strength: WNL Psychiatric: Yes: WNL Labs: CBC, BMP 06/20/17 06:10 06/24/17 06:00 INR, PTT INR 1.71 (0.82-1.09) H D 06/16/17 23:38 Problem List - Problems (1) Pneumonia Assessment/Plan: CT c/w RLL infiltrate effusion, R/O PNA, r/o aspiration. IV ABX pulm consult. Hypotension now IV fluids. Code(s): J18.9 - PNEUMONIA, UNSPECIFIED ORGANISM Qualifiers: Pneumonia type: due to unspecified organism Laterality: right Lung location: lower lobe of lung Qualified Code(s): J18.1 - Lobar pneumonia, unspecified organism (2) CHF (congestive heart failure), NYHA class III Assessment/Plan: . Cardiology F/u appreciated. Follow volume status IV lasix, follow electrolytes Pt was D/C from Amiodarone, Sotalol. Now on Metoprolol BID AICD in place. Code(s): I50.9 - HEART FAILURE, UNSPECIFIED Qualifiers: Congestive heart failure type: combined Congestive heart failure chronicity : acute on chronic Qualified Code(s): I50.43 - Acute on chronic combined systolic (congestive) and diastolic (congestive) heart failure (3) Afib Assessment/Plan: Continue Pradaxa PO Code(s): I48.91 - UNSPECIFIED ATRIAL FIBRILLATION Qualifiers: Atrial fibrillation type: paroxysmal Qualified Code(s): I48.0 - Paroxysmal atrial fibrillation (4) Sepsis associated hypotension Assessment/Plan: Klebsiella sepsis due to UTI. UA cx-K.pneumonuae BLD cx-K.Pneumonia- poth Pab S Now on Ceftriaxone IV-S Code(s): A41.9 - SEPSIS, UNSPECIFIED ORGANISM
[2017-06-27] MEDS: D5-1/2NS+40 MEQ KCL - 40 MEQ/1,000 ML INFUS.BAG IV SCH (09:01)
[2017-06-27] MEDS: MAGNESIUM OXIDE 400 MG TABLET (FP) PO SCH ×2 (10:57→22:12)
[2017-06-27] MEDS: FOLIC ACID 1 MG TABLET (FP) PO SCH (10:57)
[2017-06-27] MEDS: CHOLECALCIFEROL (VITAMIN D3) 1,000 UNIT TABLET (FP) PO SCH (10:57)
[2017-06-27] MEDS: POTASSIUM CHLORIDE TABS 20 MEQ TABLET.ER (FP) PO SCH (10:57)
[2017-06-27] MEDS: CEPHALEXIN MONOHYDRATE 500 MG CAPSULE (UD) PO SCH ×2 (10:57→22:11)
[2017-06-27] MEDS: DABIGATRAN ETEXILATE MESYLATE 150 MG CAPSULE PO SCH ×2 (10:58→22:12)
[2017-06-27] MEDS: POLYETHYLENE GLYCOL 3350 119 GM BTL PO SCH ×2 (10:58→22:12)
[2017-06-27] MEDS: MAGNESIUM HYDROX 2400MG/30ML ORAL SUSPENSION 30 ML CUP PO SCH (10:58)
[2017-06-27] MEDS: LISINOPRIL 5 MG TABLET (FP) PO SCH (10:58)
[2017-06-27] MEDS: METOPROLOL SUCCINATE 50 MG TAB.SR.24H (FP) PO SCH (10:58)
[2017-06-27] MEDS: COLCHICINE 0.6 MG TABLET (FP) PO SCH (10:58)
[2017-06-27] MEDS: DOCUSATE SODIUM 100 MG CAPSULE (FP) PO SCH (10:59)
[2017-06-27] MEDS: SILVER SULFADIAZINE 1% TOP CREAM 50 GM JAR TP SCH (11:03)
[2017-06-27] MEDS: DONEPEZIL HCL 5 MG TABLET (FP) PO SCH (22:11)
[2017-06-27] MEDS: ATORVASTATIN CA 20 MG TABLET (FP) PO SCH (22:11)
[2017-06-27] MEDS: OLANZapine 5 MG TABLET PO SCH (22:13)
[2017-06-28] MEDS: D5-1/2NS+40 MEQ KCL - 40 MEQ/1,000 ML INFUS.BAG IV SCH ×2 (08:38→08:48)
[2017-06-28] MEDS: LORazepam 2 MG/ML SDV VIAL IVPUSH PRN ×2 (08:49→23:39)
--- NOTE | 2017-06-28 10:18 | PN ---
Progress Note (short form) - Note Progress Note: Awake, alert, confused. NAD. No new complaints.. Vital Signs Temp 97.8 F 06/28/17 06:39 Pulse 72 06/28/17 06:39 Resp 20 06/28/17 06:39 BP 105/55 06/28/17 06:39 Pulse Ox 99 06/27/17 21:00 Intake & Output 06/27/17 06/27/17 06/28/17 11:59 23:59 11:59 Intake Total 548 150 500 Balance 548 150 500 Weight 153 lb 153 lb Intake: IV 298 500 D5-1/2NS+40 MEQ KCL - 40 298 500 meq In 1,000 ml @ 42 mls/ hr IV ASDIR YASIR Rx#: [id number] Oral 250 150 Other: Voiding Method Diaper Diaper Diaper # Unmeasured Voids Void 3 Bowel Movement No Yes Yes: loose Weight Measurement Method Built in Bedscale Neck-no JVD Lungs are clear. Heart S1S2 irregular with VPC's. Palpable AICD abdomen soft, NT, no HSM. Ext-no CCE Current Active Problems Problem Status Onset Acute on chronic systolic (congestive) heart failure Acute Afib Acute Alzheimer disease Acute Failure to thrive in adult Acute Gram negative sepsis Acute Gram-negative bacteremia Acute Hypokalemia Acute ICD (implantable cardioverter-defibrillator) in place Acute Pneumonia Acute Pneumonia Acute Pneumonia Acute Sepsis Acute Sepsis associated hypotension Acute UTI (urinary tract infection) Acute UTI (urinary tract infection) Acute Plan D/c planning. Continue PO abx BAB PO, diuretics, statins. Problem List - Problems (1) Pneumonia Code(s): J18.9 - PNEUMONIA, UNSPECIFIED ORGANISM Qualifiers: Pneumonia type: due to unspecified organism Laterality: right Lung location: lower lobe of lung Qualified Code(s): J18.1 - Lobar pneumonia, unspecified organism (2) CHF (congestive heart failure), NYHA class III Code(s): I50.9 - HEART FAILURE, UNSPECIFIED Qualifiers: Congestive heart failure type: combined Congestive heart failure chronicity : acute on chronic Qualified Code(s): I50.43 - Acute on chronic combined systolic (congestive) and diastolic (congestive) heart failure (3) Afib Code(s): I48.91 - UNSPECIFIED ATRIAL FIBRILLATION Qualifiers: Atrial fibrillation type: paroxysmal Qualified Code(s): I48.0 - Paroxysmal atrial fibrillation (4) Sepsis associated hypotension Code(s): A41.9 - SEPSIS, UNSPECIFIED ORGANISM
[2017-06-28] MEDS: DOCUSATE SODIUM 100 MG CAPSULE (FP) PO SCH (11:18)
[2017-06-28] MEDS: LISINOPRIL 5 MG TABLET (FP) PO SCH (11:19)
[2017-06-28] MEDS: MAGNESIUM OXIDE 400 MG TABLET (FP) PO SCH ×2 (11:19→22:31)
[2017-06-28] MEDS: DABIGATRAN ETEXILATE MESYLATE 150 MG CAPSULE PO SCH ×2 (11:21→22:32)
[2017-06-28] MEDS: POTASSIUM CHLORIDE TABS 20 MEQ TABLET.ER (FP) PO SCH (11:21)
[2017-06-28] MEDS: POLYETHYLENE GLYCOL 3350 119 GM BTL PO SCH ×2 (11:21→22:31)
[2017-06-28] MEDS: METOPROLOL SUCCINATE 50 MG TAB.SR.24H (FP) PO SCH (11:21)
[2017-06-28] MEDS: FOLIC ACID 1 MG TABLET (FP) PO SCH (11:21)
[2017-06-28] MEDS: CHOLECALCIFEROL (VITAMIN D3) 1,000 UNIT TABLET (FP) PO SCH (11:21)
[2017-06-28] MEDS: CEPHALEXIN MONOHYDRATE 500 MG CAPSULE (UD) PO SCH ×2 (11:22→22:31)
[2017-06-28] MEDS: COLCHICINE 0.6 MG TABLET (FP) PO SCH (11:22)
[2017-06-28] MEDS: SILVER SULFADIAZINE 1% TOP CREAM 50 GM JAR TP SCH (11:22)
[2017-06-28] MEDS: MAGNESIUM HYDROX 2400MG/30ML ORAL SUSPENSION 30 ML CUP PO SCH (11:22)
[2017-06-28] MEDS: DONEPEZIL HCL 5 MG TABLET (FP) PO SCH (22:31)
[2017-06-28] MEDS: ATORVASTATIN CA 20 MG TABLET (FP) PO SCH (22:31)
[2017-06-28] MEDS: OLANZapine 5 MG TABLET PO SCH (22:32)
[2017-06-29] MEDS: LORazepam 2 MG/ML SDV VIAL IVPUSH PRN ×2 (08:41→22:51)
--- NOTE | 2017-06-29 09:16 | PN ---
Progress Note (short form) - Note Progress Note: Confused, no new complaints Vital Signs Temp 97.8 F 06/29/17 06:00 Pulse 67 06/29/17 06:00 Resp 20 06/29/17 06:00 BP 119/54 06/29/17 06:00 Pulse Ox 99 06/27/17 21:00 Intake & Output 06/28/17 06/28/17 06/29/17 11:59 23:59 11:59 Intake Total 500 704 500 Balance 500 704 500 Weight 153 lb 152 lb 6.4 oz Intake: IV 500 504 500 D5-1/2NS+40 MEQ KCL - 40 500 504 500 meq In 1,000 ml @ 42 mls/ hr IV ASDIR YASIR Rx#: [id number] Oral 200 Other: Voiding Method Diaper Diaper # Unmeasured Voids Void 3 2 Bowel Movement Yes: loose Yes Yes: 1 # Bowel Movements 1 3 Weight Measurement Method Built in Bedscale Built in Bedscale Neck-no JVD Lungs are Clear. Heart s1s2 irregular with VPC's Abdomen soft, NT,Chest-palpable PPM Ext-no CCE. Current Active Problems Problem Status Onset Acute on chronic systolic (congestive) heart failure Acute Afib Acute Alzheimer disease Acute Failure to thrive in adult Acute Gram negative sepsis Acute Gram-negative bacteremia Acute Hypokalemia Acute ICD (implantable cardioverter-defibrillator) in place Acute Pneumonia Acute Pneumonia Acute Pneumonia Acute Sepsis Acute Sepsis associated hypotension Acute UTI (urinary tract infection) Acute UTI (urinary tract infection) Acute Plan continue nutrition supplements PO antibiotics. Wound care. PT for ambulation. Problem List - Problems (1) Pneumonia Code(s): J18.9 - PNEUMONIA, UNSPECIFIED ORGANISM Qualifiers: Pneumonia type: due to unspecified organism Laterality: right Lung location: lower lobe of lung Qualified Code(s): J18.1 - Lobar pneumonia, unspecified organism (2) CHF (congestive heart failure), NYHA class III Code(s): I50.9 - HEART FAILURE, UNSPECIFIED Qualifiers: Congestive heart failure type: combined Congestive heart failure chronicity : acute on chronic Qualified Code(s): I50.43 - Acute on chronic combined systolic (congestive) and diastolic (congestive) heart failure (3) Afib Code(s): I48.91 - UNSPECIFIED ATRIAL FIBRILLATION Qualifiers: Atrial fibrillation type: paroxysmal Qualified Code(s): I48.0 - Paroxysmal atrial fibrillation (4) Sepsis associated hypotension Code(s): A41.9 - SEPSIS, UNSPECIFIED ORGANISM
[2017-06-29] MEDS: METOPROLOL SUCCINATE 50 MG TAB.SR.24H (FP) PO SCH (09:55)
[2017-06-29] MEDS: CHOLECALCIFEROL (VITAMIN D3) 1,000 UNIT TABLET (FP) PO SCH (09:55)
[2017-06-29] MEDS: LISINOPRIL 5 MG TABLET (FP) PO SCH (09:55)
[2017-06-29] MEDS: POTASSIUM CHLORIDE TABS 20 MEQ TABLET.ER (FP) PO SCH (09:55)
[2017-06-29] MEDS: MAGNESIUM OXIDE 400 MG TABLET (FP) PO SCH ×2 (09:55→21:54)
[2017-06-29] MEDS: CEPHALEXIN MONOHYDRATE 500 MG CAPSULE (UD) PO SCH ×2 (09:55→21:54)
[2017-06-29] MEDS: FOLIC ACID 1 MG TABLET (FP) PO SCH (09:55)
[2017-06-29] MEDS: SILVER SULFADIAZINE 1% TOP CREAM 50 GM JAR TP SCH (09:56)
[2017-06-29] MEDS: POLYETHYLENE GLYCOL 3350 119 GM BTL PO SCH ×2 (09:56→22:07)
[2017-06-29] MEDS: MAGNESIUM HYDROX 2400MG/30ML ORAL SUSPENSION 30 ML CUP PO SCH (09:56)
[2017-06-29] MEDS: COLCHICINE 0.6 MG TABLET (FP) PO SCH (09:56)
[2017-06-29] MEDS: DABIGATRAN ETEXILATE MESYLATE 150 MG CAPSULE PO SCH ×2 (09:56→21:54)
[2017-06-29] MEDS: DOCUSATE SODIUM 100 MG CAPSULE (FP) PO SCH (09:57)
[2017-06-29] MEDS: ATORVASTATIN CA 20 MG TABLET (FP) PO SCH (21:54)
[2017-06-29] MEDS: DONEPEZIL HCL 5 MG TABLET (FP) PO SCH (21:54)
[2017-06-29] MEDS: OLANZapine 5 MG TABLET PO SCH (21:54)
[2017-06-29] MEDS: D5-1/2NS+40 MEQ KCL - 40 MEQ/1,000 ML INFUS.BAG IV SCH (22:07)
[2017-06-30 07:06] LABS: BASO % 0.7 % (0-2.0); EOS % 0.2 % (0-4.5); HEMATOCRIT 40.5 % (35.4-49); HEMOGLOBIN 12.8 GM/dL (11.7-16.9); LYMPH % 10.6 % (8-40); MCH 28.6 pg (25.7-33.7); MCHC 31.6 g/dl (32.0-35.9); MEAN CELL VOLUME 90.3 fl (80-96); MEAN PLT VOLUME 7.3 fl (7.5-11.1); MONO % 10.6 % (3.8-10.2); NEUT % 77.9 % (42.8-82.8); PLATELET COUNT 283 K/MM3 (134-434); RBC 4.48 M/mm3 (4.00-5.60); RDW 15.9 % (11.9-15.9); WHITE BLOOD COUNT 7.8 K/mm3 (4.0-10.0)
[2017-06-30 07:37] LABS: ALBUMIN 2.5 g/dl (3.4-5.0); ALK PHOS 132 U/L (45-117); ANION GAP 4 (8-16); BILIRUBIN,TOTAL 0.7 mg/dL (0.2-1.0); BLOOD UREA NITROGEN 24 mg/dL (7-18); CALCIUM 8.4 mg/dL (8.5-10.1); CHLORIDE 100 mmol/L (98-107); CO2 33 mmol/L (21-32); GLUCOSE,RANDOM 88 mg/dL (74-106); POTASSIUM 4.8 mmol/L (3.5-5.1); SGOT/AST 41 U/L (15-37); SGPT/ALT 41 U/L (12-78); SODIUM 137 mmol/L (136-145); TOT PROT 6.3 g/dl (6.4-8.2)
[2017-06-30] MEDS: POLYETHYLENE GLYCOL 3350 119 GM BTL PO SCH (11:08)
[2017-06-30] MEDS: MAGNESIUM HYDROX 2400MG/30ML ORAL SUSPENSION 30 ML CUP PO SCH (11:08)
[2017-06-30] MEDS: DOCUSATE SODIUM 100 MG CAPSULE (FP) PO SCH (11:08)
[2017-06-30] MEDS: COLCHICINE 0.6 MG TABLET (FP) PO SCH (11:18)
[2017-06-30] MEDS: MAGNESIUM OXIDE 400 MG TABLET (FP) PO SCH (11:18)
[2017-06-30] MEDS: POTASSIUM CHLORIDE TABS 20 MEQ TABLET.ER (FP) PO SCH (11:18)
[2017-06-30] MEDS: CHOLECALCIFEROL (VITAMIN D3) 1,000 UNIT TABLET (FP) PO SCH (11:18)
[2017-06-30] MEDS: FOLIC ACID 1 MG TABLET (FP) PO SCH (11:18)
[2017-06-30] MEDS: DABIGATRAN ETEXILATE MESYLATE 150 MG CAPSULE PO SCH (11:18)
[2017-06-30] MEDS: CEPHALEXIN MONOHYDRATE 500 MG CAPSULE (UD) PO SCH (11:18)
[2017-06-30] MEDS: SILVER SULFADIAZINE 1% TOP CREAM 50 GM JAR TP SCH (11:19)
[2017-06-30] MEDS: LISINOPRIL 5 MG TABLET (FP) PO SCH (11:20)
[2017-06-30] MEDS: METOPROLOL SUCCINATE 50 MG TAB.SR.24H (FP) PO SCH (11:20)
--- NOTE | 2017-06-30 12:40 | PN ---
Progress Note (short form) - Note Progress Note: NAD on RA. Confused. Intermittent screaming. No acute events overnight. Intake & Output 06/27/17 06/28/17 06/29/17 06/30/17 23:59 23:59 23:59 23:59 Intake Total 698 1204 1000 640 Output Total 2 Balance 698 1204 1000 638 Weight 153 lb 153 lb 152 lb 6.4 oz Last Vital Signs Temp Pulse Resp BP Pulse Ox 97.5 F L 66 20 102/54 95 06/30/17 06:00 06/30/17 06:00 06/30/17 06:00 06/30/17 06:00 06/29/17 21:00 Active Medications Atorvastatin Calcium (Lipitor -) 20 mg PO HS [facility] Last Admin: 06/29/17 21:54 Dose: 20 mg Cephalexin HCl (Keflex -) 500 mg PO BID [facility] Last Admin: 06/30/17 11:18 Dose: 500 mg Cholecalciferol (Vitamin D3 -) 1,000 unit PO DAILY [facility] Last Admin: 06/30/17 11:18 Dose: 1,000 unit Colchicine (Colcrys -) 0.6 mg PO DAILY [facility] Last Admin: 06/30/17 11:18 Dose: 0.6 mg Dabigatran (Pradaxa -) 150 mg PO BID [facility] Last Admin: 06/30/17 11:18 Dose: 150 mg Docusate Sodium (Colace -) 100 mg PO DAILY [facility] Last Admin: 06/30/17 11:08 Dose: Not Given Donepezil HCl (Aricept -) 5 mg PO HS [facility] Last Admin: 06/29/17 21:54 Dose: 5 mg Folic Acid (Folic Acid -) 1 mg PO DAILY [facility] Last Admin: 06/30/17 11:18 Dose: 1 mg Dextrose/Sodium Chloride (D5-1/2ns+40 Meq Kcl -) 40 meq in 1,000 mls @ 42 mls/ hr IV ASDIR [facility] Last Admin: 06/29/17 22:07 Dose: Not Given Lisinopril (Prinivil) 2.5 mg PO DAILY [facility] Last Admin: 06/30/17 11:20 Dose: 2.5 mg Lorazepam (Ativan Injection -) 0.25 mg IVPUSH HS PRN Last Admin: 06/29/17 22:51 Dose: 0.25 mg Lorazepam (Ativan Injection -) 0.25 mg IVPUSH DAILY PRN PRN Reason: ANXIETY Last Admin: 06/28/17 08:49 Dose: 0.25 mg Magnesium Hydroxide (Milk Of Magnesia -) 30 ml PO DAILY [facility] Last Admin: 06/30/17 11:08 Dose: Not Given Magnesium Oxide (Mag-Ox -) 400 mg PO BID [facility] Last Admin: 06/30/17 11:18 Dose: 400 mg Metoprolol Succinate (Toprol Xl -) 50 mg PO DAILY [facility] Last Admin: 06/30/17 11:20 Dose: 50 mg Olanzapine (Zyprexa -) 5 mg PO HS [facility] Last Admin: 06/29/17 21:54 Dose: 5 mg Polyethylene Glycol (Miralax (For Daily Use) -) 17 gm PO BID [facility] Last Admin: 06/30/17 11:08 Dose: Not Given Potassium Chloride (K-Dur -) 20 meq PO DAILY [facility] Last Admin: 06/30/17 11:18 Dose: 20 meq Senna/Docusate Sodium (Pericolace -) 1 tablet PO DAILY PRN PRN Reason: CONSTIPATION Silver Sulfadiazine (Silvadene -) 1 applic TP DAILY [facility] Last Admin: 06/30/17 11:19 Dose: 1 applic Constitutional: Yes: Confused, NAD Eyes: Yes: Conjunctiva Clear, EOM Intact HENT: Yes: Atraumatic, Normocephalic Neck: Yes: Supple, Trachea Midline Cardiovascular: Yes: Pulse Irregular, S1, S2. No: Regular Rate and Rhythm, Bradycardia, Tachycardia, Bruit, JVD, Gallop, Murmur, Rub, S3, S4, Varicosities Respiratory: Yes: few scattered rhonchi Gastrointestinal: Yes: Normal Bowel Sounds, Soft. No: Distention, Tenderness Edema: No Peripheral Pulses WNL: Yes Neurological: Yes: Confused Psychiatric: Yes: Confused Labs: Laboratory Results - last 24 hr 06/30/17 06/30/17 05:35 05:35 WBC 7.8 D RBC 4.48 Hgb 12.8 D Hct 40.5 MCV 90.3 MCH 28.6 MCHC 31.6 L RDW 15.9 Plt Count 283 D MPV 7.3 L Neutrophils % 77.9 Lymphocytes % 10.6 D Monocytes % 10.6 H Eosinophils % 0.2 Basophils % 0.7 Sodium 137 Potassium 4.8 Chloride 100 Carbon Dioxide 33 H Anion Gap 4 L BUN 24 H Creatinine 1.0 Creat Clearance w eGFR > 60 Random Glucose 88 Calcium 8.4 L Total Bilirubin 0.7 D AST 41 H ALT 41 Alkaline Phosphatase 132 H D Total Protein 6.3 L D Albumin 2.5 L Problem List - Problems (1) Pneumonia Code(s): J18.9 - PNEUMONIA, UNSPECIFIED ORGANISM (2) Afib Code(s): I48.91 - UNSPECIFIED ATRIAL FIBRILLATION Qualifiers: Atrial fibrillation type: paroxysmal Qualified Code(s): I48.0 - Paroxysmal atrial fibrillation (3) Altered mental status Code(s): R41.82 - ALTERED MENTAL STATUS, UNSPECIFIED Qualifiers: Altered mental status type: unspecified Qualified Code(s): R41.82 - Altered mental status, unspecified (4) Alzheimer disease Code(s): G30.9 - ALZHEIMER'S DISEASE, UNSPECIFIED Qualifiers: Alzheimer's disease onset: unspecified onset (5) Failure to thrive in adult Code(s): R62.7 - ADULT FAILURE TO THRIVE (6) Fever Code(s): R50.9 - FEVER, UNSPECIFIED Qualifiers: Fever type: due to other condition Qualified Code(s): R50.81 - Fever presenting with conditions classified elsewhere IMP: UTI Klebsiella Bacteremia Severe Sepsis improved Acute Kidney Injury improved Atrial Fibrillation Severe LV Systolic Dysfunction Mitral Regurgitation Pulmonary HTN CAD Dementia PLAN: Keflex O2 as needed Aspiration precautions No Pulmonary contraindication for D/C planning Dr Luque
--- NOTE | 2017-06-30 13:02 | PN ---
Progress Note (short form) - Note Progress Note: Awake, alert, confused. Vital Signs Temp 97.5 F L 06/30/17 06:00 Pulse 66 06/30/17 06:00 Resp 20 06/30/17 06:00 BP 102/54 06/30/17 06:00 Pulse Ox 95 06/29/17 21:00 Intake & Output 06/29/17 06/30/17 06/30/17 23:59 11:59 23:59 Intake Total 500 640 Output Total 2 Balance 500 638 Intake: IV 500 500 D5-1/2NS+40 MEQ KCL - 40 500 500 meq In 1,000 ml @ 42 mls/ hr IV ASDIR YASIR Rx#: [id number] Oral 140 Output: Urine 2 Void 2 Other: Voiding Method Incontinent Incontinent Bowel Movement Yes Yes # Bowel Movements 3 1 neck-no JVD Lungs are clear AICD in place Heart s1s2 regular, 2/6 SM LSB Abdomen soft, nt Current Active Problems Problem Status Onset Acute on chronic systolic (congestive) heart failure Acute Afib Acute Alzheimer disease Acute Failure to thrive in adult Acute Gram negative sepsis Acute Gram-negative bacteremia Acute Hypokalemia Acute ICD (implantable cardioverter-defibrillator) in place Acute Pneumonia Acute Pneumonia Acute Pneumonia Acute Sepsis Acute Sepsis associated hypotension Acute UTI (urinary tract infection) Acute UTI (urinary tract infection) Acute Plan complete PO Keflex Fall precaution. Rehab placement dicussed. Problem List - Problems (1) Pneumonia Code(s): J18.9 - PNEUMONIA, UNSPECIFIED ORGANISM Qualifiers: Pneumonia type: due to unspecified organism Laterality: right Lung location: lower lobe of lung Qualified Code(s): J18.1 - Lobar pneumonia, unspecified organism (2) CHF (congestive heart failure), NYHA class III Code(s): I50.9 - HEART FAILURE, UNSPECIFIED Qualifiers: Congestive heart failure type: combined Congestive heart failure chronicity : acute on chronic Qualified Code(s): I50.43 - Acute on chronic combined systolic (congestive) and diastolic (congestive) heart failure (3) Afib Code(s): I48.91 - UNSPECIFIED ATRIAL FIBRILLATION Qualifiers: Atrial fibrillation type: paroxysmal Qualified Code(s): I48.0 - Paroxysmal atrial fibrillation (4) Sepsis associated hypotension Code(s): A41.9 - SEPSIS, UNSPECIFIED ORGANISM
[2017-06-30] MEDS: LORazepam 2 MG/ML SDV VIAL IVPUSH PRN (13:54)
[2017-06-30 15:09] VITALS: BP 102/57; PULSE 64; TEMP 98.1
== END 2017-06-30 17:27 | DRG 871 ==
LOC: JER 21:20 → JERBED 23:59 → J7W 06-17 04:25 → JICU 06-17 14:43 → J7W 06-19 15:22
PROVIDERS: ADMIT Internal Medicine; ATTEND Internal Medicine
DX: A41.50 Gram-negative sepsis, unspecified (principal); I50.23 Acute on chronic systolic (congestive) heart failure; J18.9 Pneumonia, unspecified organism; G93.40 Encephalopathy, unspecified; N39.0 Urinary tract infection, site not specified; N17.9 Acute kidney failure, unspecified; I47.2 Ventricular tachycardia; I27.20 Pulmonary hypertension, unspecified; I34.0 Nonrheumatic mitral (valve) insufficiency; I25.10 Atherosclerotic heart disease of native coronary artery without angina pectoris; R62.7 Adult failure to thrive; R41.82 Altered mental status, unspecified; G30.9 Alzheimer's disease, unspecified; F02.80 Dementia in other diseases classified elsewhere, unspecified severity, without behavioral disturbance, psychotic disturbance, mood disturbance, and anxiety; I48.0 Paroxysmal atrial fibrillation; E78.5 Hyperlipidemia, unspecified; Z95.1 Presence of aortocoronary bypass graft; E87.6 Hypokalemia; Z95.810 Presence of automatic (implantable) cardiac defibrillator; I11.0 Hypertensive heart disease with heart failure
CPT/HCPCS: 36415; 36600; 70450-TC; 71010-TC; 71250-TC; 74000-TC; 76700-TC; 76775-TC; 76856-TC; 80048; 80053; 81003; 81015; 82550; 82553; 82803; 83605; 83735; 83880; 84100; 84484; 85025; 85027; 85610; 86850; 86900; 86901; 87040; 87086; 87186; 87804; 87899; 93005; 93010; 93306-TC; 97161-GP; 97164-GP; 99285-25